=== PATIENT | female | born 1970 | race Caucasian/White ===

== ENCOUNTER 2018-07-21 16:16 | Inpatient (IN) | payer SELFPAY ==
[2018-07-21 16:18] VITALS: BP 152/110; PULSE 111; RESP 18; TEMP 36.9; O2SAT 93; BMI 57.3
--- NOTE | 2018-07-21 16:46 | ED.VISSUMM ---
- ER Visit Summary Date of Service: 07/21/18 Chief Complaint: Questionable dehydration, shortness of breath, leg cramps History of Present Illness: The patient is a 48 F who presents with weakness, shortness of breath, leg cramping and is concerned about dehydration. She states that over the past 3 days she has not eaten well. She has no appetite. She has been drinking Gatorade but has not eaten well. She is concerned about dehydration because she gets short of breath and weak when she ambulates. She has had a mild amount of diarrhea. She denies any abdominal pain. She does have chest pain or shortness of breath with exertion. She has no history of IA in the past. Physical Examination: Vital signs reviewed. HEENT exam unremarkable. Heart is tachycardic and regular rhythm without murmurs. Lungs are clear bilaterally however the patient is slightly tachypneic upon my examination. Abdomen is soft and nontender. Extremities reveal no edema. Neurologic exam normal. Test Results: EKG is normal sinus rhythm with rate of 99. No ST changes. White blood cell count 11.7 BUN 22 creatinine 1.49 troponin 0 0.024. D-dimer 7.43 CAT scan of the chest with contrast reveals a bilateral pulmonary embolism with a thin saddle embolus connecting the 2. Emergency Department Course and Treatment: The patient has no history of DVT or PE. I believe that her only risk factor is when she drove from [place] to [place] when she moved at the end of March. They did stop once in [place] for a rest. At this point the patient will be placed on a heparin drip. She will be admitted to the PCU for further observation. Treatment Plan: [] Disposition: Admit Impression: Bilateral pulmonary embolism This note was generated with [employer] dictation software. It may contain incorrect words, spelling, and punctuation that were not noted in review of the chart prior to signing ED Disposition - Plan for ED Patient: Referrals: NOT,DEFINED [NON-STAFF] -
--- NOTE | 2018-07-21 16:50 | RAD_ITS ---
STUDY: X-RAY CHEST REASON FOR EXAM: Female, 48 years old. Cough and shortness of breath since Tuesday. TECHNIQUE: Single AP portable view of the chest. COMPARISON: None. FINDINGS: The lungs are clear and expanded. Mild elevation of the right diaphragm. Normal size heart. Normal mediastinum and na. Normal visualized pulmonary arteries. Normal visualized aortic arch and descending thoracic aorta. Normal visualized thoracic spine. Normal visualized ribs, clavicles, and shoulders. There is no demonstrated abnormality of the visualized soft tissue structures of the upper abdomen. RAD/Chest 1 View (Portable) IMPRESSION: Mild elevation of right diaphragm. No acute cardiopulmonary findings. Negative for major consolidation, focal atelectasis or a substantial pleural effusion. Electronically Signed: Fang Doe MD at 17:14 EST , Service support ,
[2018-07-21] MEDS: 0.9% Normal Saline 1,000 ML 1000 ML IV (17:08)
[2018-07-21 17:23] LABS: Absolute Lymphocyte Count 2.62 X10^3/ul (0.83-4.51); Absolute Neutrophil Count 7.6 X10^3/uL (2.0-7.7); Basophil# 0.05 X10^3/uL; Basophil% 0.4 % (0-1); Eosinophil# 0.28 X10^3/uL; Eosinophils% 2.4 % (0-5); Hematocrit 37.1 % (37-47); Hemoglobin 12.4 g/dl (12.0-15.0); Lymphocyte # 2.62 X10^3/ul (4.0); Lymphocyte % 22.3 % (19-41); Mean Corp Hgb Conc 33.4 g/gl (32-36); Mean Corpuscular Hgb 30.9 pg (27.0-32.0); Mean Corpuscular Volume 92.5 fL (81-99); Mean Platelet Vol. 10.6 fl (6.2-12.0); Monocyte# 1.14 X10^3/uL; Monocyte% 9.7 % (0-10); Neutrophil # 7.59 X10^3/uL (2.7-7.7); Neutrophil % 64.7 % (47-70); Platelet Count 353 K/mm3 (150-450); Red Blood Count 4.01 M/mm3 (4.2-5.4); White Blood Count 11.7 K/mm3 (4.4-11.0)
[2018-07-21 17:26] LABS: POSITIVE COUNT NO; POSITIVE DIFFERENTIAL NO; POSITIVE MORPHOLOGY NO
[2018-07-21 17:37] LABS: ALB/GLOB Ratio 0.8 RATIO (0.9-2.4); AST(SGOT) 36 U/L (15-37); Alanine Aminotransfer ALT/SGPT 47 U/L (13-56); Albumin, Serum 3.5 g/dL (3.2-5.0); Alkaline Phosphatase 92 U/L (45-117); Anion Gap 11 (5-15); BUN 22 mg/dL (7-18); BUN/Creat Ratio 14.8 RATIO (10-20); Calcium,Total 8.9 mg/dL (8.5-10.1); Chloride 108 mmol/L (98-107); Creatinine, Serum 1.49 mg/dL (0.55-1.02); EST Glomerular Filtration Rate 40 mL/min (>60); Est Glom Filt Rate - Afr Amer 48 mL/min (>60); Estimated Creatinine Clearance 44.41 ml/min; Globulin 4.4 g/dL (2.2-4.2); Glucose 95 mg/dL (74-106); Potassium 3.8 mmol/L (3.5-5.1); Protein, Total 7.9 g/dL (6.4-8.2); Sodium Level 138 mmol/L (136-145)
[2018-07-21 18:03] LABS: D-Dimer Quantitative (DVT/PE) 7.43 FEU/ug/m (0.27-0.49)
--- NOTE | 2018-07-21 18:04 | CT_ITS ---
We are attempting to reach Sarabjit Aguilar MD to discuss findings. An addendum with communication details will be sent when the communication is complete. STUDY: CTA CHEST REASON FOR EXAM: Female, 48 years old. Shortness of breath, weakness and elevated d-dimer RADIATION DOSAGE (If Supplied By Facility): CTDIvol = ( 16.73 ) mGy, DLP = ( 769.43 ) mGycm TECHNIQUE: The examination was performed with the intravenous administration of Isovue 370 100ML IV. Post-processing of the angiographic images was performed, with multiplanar reformation and 3D reconstruction. Individualized dose optimization techniques were used for this CT. COMPARISON: Portable chest of July 21, 2018 FINDINGS: There is a large pulmonary embolus in the distal right pulmonary artery which extends into multiple branches of the right upper lobe, right middle lobe and right lower lobe. This embolus is connected by a thin embolus to a large embolus in the distal left pulmonary artery which extends into multiple branches of the left lower lobe, lingula and left upper lobe. Normal thoracic aorta and visualized great vessels. Normal heart and pericardium. Normal mediastinum. Normal hilar regions. Mild lingular infiltrate. Negative for pleural effusion. Normal chest wall structures. There are degenerative changes of thoracic spine. Multiple large to moderate size laminated gallstones in the gallbladder. CT/CTA Chest W/WO Contrast IMPRESSION: Large pulmonary embolus of the distal right pulmonary artery extending into the right lower lobe artery and multiple branches. Extension into the right middle lobe and right upper lobe branches. Large embolus of the distal left pulmonary embolus extending into upper lobe, lingular and lower lobe branches. There is a slender interconnecting embolus from the right pulmonary artery embolus to the left pulmonary embolus, saddle embolus. Mild lingular infiltrate. Otherwise the lungs are clear without pleural effusion. Normal aorta heart and mediastinum. Incidental cholelithiasis. Electronically Signed: Fang Doe MD at 19:06 EST , Service support ,
--- NOTE | 2018-07-21 18:09 | ED.RN ---
DDIMER 7.[address] LAB. DR POE AWARE
[2018-07-21] MEDS: Heparin Injection (Vial) 5,000 UNIT/ML VIAL 13000 UNIT IV (18:56)
[2018-07-21] MEDS: HEPARIN/D5w 25,000 UNITS 25,000 UNITS/250 ML IV.SOLN. 2000 UNITS IV (19:00)
[2018-07-21 19:02] VITALS: BP 134/75; PULSE 90; RESP 21; O2SAT 99
--- NOTE | 2018-07-21 19:28 | HP.PCM_ITS ---
Problem List (1) Pulmonary embolism Status: Acute Qualifiers: Pulmonary embolism type: saddle Chronicity: acute (2) DARLENE (acute kidney injury) Status: Acute (3) HTN (hypertension) Status: Chronic Qualifiers: Hypertension type: essential hypertension Qualified Code(s): I10 - Essential (primary) hypertension (4) Anxiety and depression Status: Chronic (5) Hypothyroidism Status: Chronic Qualifiers: Hypothyroidism type: unspecified Qualified Code(s): E03.9 - Hypothyroidism, unspecified (6) Morbid obesity Status: Chronic (7) KINGSLEY (obstructive sleep apnea) Status: Chronic History of Present Illness Date of Admission: 07/21/18 Chief Complaint: Dyspnea The patient is a 48 y/o F w/ PMHx: Hypothyroidism, HTN, Morbid Obesity, KINGSLEY non- compliant with CPAP, Anxiety and Depression who presents to the [facility] ED on 07/21/18 with history of recently moving from [place] to [place] at the end of 2017 and since has had initially BL LE discomfort, cramping, mild edema and now over the last several weeks progressively worsening dyspnea, more severe with exertion eventually prompting ED evaluation per her PCP recommendation. She also notes recently decreased appetite over the last 3 days in addition. She denies any notable chest discomfort with this presentation. In the ED work-up included T 98.5, HR 111-->90, BP 152/110-->134/75, RR 18, 93% on RA, CBC w/ WBC 11.7, Hgb 12.4, Plts 353 without shift 7.43, CMP w/ Chl 108, CO2 19, BUN/Cr 22/1.49, trop 0.024, EKG without acute evidence of ischemia, CXR with mild elevation of right diaphragm, no acute cardiopulmonary findings, CTPA with large pulmonary embolus of the distal right pulmonary artery extending into the right lower lobe artery and multiple branches with extension into the right middle lobe and right upper lobe branches as well, large embolus of the distal left pulmonary embolus e xtending to the upper lobe, lingular and lower lobe branches, slender interconnecting embolus from the right pulmonary artery embolus to the left pulmonary embolus, saddle embolus, mild lingular infiltrate otherwise lungs are clear without pleural effusion. In the ED patient administered heparin bolus with drip initiation in addition to NS. Past Medical History Past Medical History (Chronic Problems): Chronic Problems HTN (hypertension) (Chronic) Anxiety and depression (Chronic) Hypothyroidism (Chronic) Morbid obesity (Chronic) KINGSLEY (obstructive sleep apnea) (Chronic) Allergies No Known Allergies Allergy (Verified 07/21/18 16:18) Home Medications: Ambulatory Orders Medication Instructions Recorded Aspirin [Aspirin, Baby] 81 mg PO DAILY@0800 07/21/18 Buspirone HCl 10 mg PO BID 07/21/18 Levothyroxine [Synthroid] 125 mcg PO DAILY 07/21/18 Lisinopril [Zestril] 20 mg PO DAILY 07/21/18 Meloxicam [Mobic] 15 mg PO DAILY 07/21/18 Metoprolol(XL)Succ [Toprol Xl 50 mg PO DAILY 07/21/18 (Beta Bautista)] Oxybutynin Chloride [Oxybutynin 10 mg PO DAILY 07/21/18 Chloride ER] Venlafaxine HCl [Venlafaxine HCl 150 mg PO DAILY 07/21/18 ER] Surgical History: - - Hysterectomy, BLTL. 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 Denies: Chills, Fever, Weight Change HEENT: Denies: Head Aches, Sinus Congestion, Sinus Drainage Cardiovascular: Denies: Chest Pain, Palpitations Respiratory: Reports: Shortness of Breath, Shortness of breath at rest, Shortness of breath upon exertion. Denies: Cough, Sputum production Gastrointestinal: Denies: Abdominal Pain, Nausea, Vomiting Genitourinary: Denies: Dysuria Musculoskeletal: Reports: Leg Pain. Denies: Joint Pain, Joint Tenderness Skin: Denies: Rash, Wounds Neurological: Denies: Numbness, Tingling, Focal weakness Psychiatric: Reports: Anxiety, Depression. Denies: Homicidal Ideations, Suicidal Ideations Hematologic/ Lymphatic: Denies: Easy Bruising, Easy Bleeding VTE Information - Inpt Only VTE Present on Admission: No VTE Mechan Device Prophylaxis: SCD's VTE Pharm Prophylaxis ordered?: Yes Patient Problems: Active and Suspected Problems Pulmonary embolism (Acute) DARLENE (acute kidney injury) (Acute) Subjective: Seated upright in the ED bed, fatigued, notes ongoing dyspnea, moreso with movement. Objective: Physical Examination: General: awake, alert, oriented x 3 and cooperative, seated upright in the ED bed in no apparent distress, notes still dyspnea present. Skin: normal color, turgor, no icterus, cyanosis. HEENT: AT/NC, EOMI, PERRLA, modeately dry MM, no carotid bruits or JVD noted; however, thickened neck makes examination difficult. Lungs: Diminished BL bases, moderate effort, distant breath sounds, no rales, ronchi or wheezing. Heart: Regular rate and rhythm; no gallop, rub audible. Abdomen: soft, morbidly obese, NTTP, ND, normal BS, no HSM; however, habitus makes examination difficult. Extremities: no cyanosis, clubbing, BL LE ankle to distal metz non-pitting edema, NTTP. Neurological: patient awake, alert, oriented x 3; cognitive function intact; pupils equally reactive to light and accomodation; cranial nerves II-XII grossly normal, moving all 4 extremities, no focal deficits, strength severely globally decreased secondary to acute presentation. Psychiatric: affect appears fatigued, no acute evidence of depressive or anxiety feelings. - Physical Exam Vital Signs Temp Pulse Resp BP Pulse Ox 98.5 F 90 21 H 134/75 H 99 07/21/18 16:18 07/21/18 19:02 07/21/18 19:02 07/21/18 19:02 07/21/18 19:02 Oxygen Delivery Method Room Air Weight: 366 lb 3.005 oz Body Mass Index (BMI) 57.3 Laboratory Tests Past 24 Hrs 07/21/18 07/21/18 07/21/18 17:05 17:05 17:05 WBC 11.7 H RBC 4.01 L Hgb 12.4 Hct 37.1 MCV 92.5 MCH 30.9 MCHC 33.4 RDW 13.0 RDW Differential 43.0 Plt Count 353 MPV 10.6 Immature Gran % (Auto) 0.500 Neut % (Auto) 64.7 Lymph % (Auto) 22.3 Gordon % (Auto) 9.7 Eos % (Auto) 2.4 Baso % (Auto) 0.4 Absolute Neuts (auto) 7.6 Absolute Lymphs (auto) 2.62 Total Counted Not Reportable APTT D-Dimer Quant (PE/DVT) 7.43 H* Sodium 138 Potassium 3.8 Chloride 108 H Carbon Dioxide 19.0 L Anion Gap 11 BUN 22 H Creatinine 1.49 H Estim Creat Clear Calc 44.41 Est GFR (MDRD) Af Amer 48 L Est GFR (MDRD) Non-Af 40 L BUN/Creatinine Ratio 14.8 Glucose 95 Calcium 8.9 Total Bilirubin 0.80 AST 36 ALT 47 Alkaline Phosphatase 92 Troponin I 0.024 Total Protein 7.9 Albumin 3.5 Globulin 4.4 H Albumin/Globulin Ratio 0.8 L 07/21/18 17:05 WBC RBC Hgb Hct MCV MCH MCHC RDW RDW Differential Plt Count MPV Immature Gran % (Auto) Neut % (Auto) Lymph % (Auto) Gordon % (Auto) Eos % (Auto) Baso % (Auto) Absolute Neuts (auto) Absolute Lymphs (auto) Total Counted APTT 29.0 D-Dimer Quant (PE/DVT) Sodium Potassium Chloride Carbon Dioxide Anion Gap BUN Creatinine Estim Creat Clear Calc Est GFR (MDRD) Af Amer Est GFR (MDRD) Non-Af BUN/Creatinine Ratio Glucose Calcium Total Bilirubin AST ALT Alkaline Phosphatase Troponin I Total Protein Albumin Globulin Albumin/Globulin Ratio Assessment/Plan All Active Problems Pulmonary embolism (Acute) DARLENE (acute kidney injury) (Acute) The patient is a 48 y/o F w/ PMHx: Hypothyroidism, HTN, Morbid Obesity, KINGSLEY non- compliant with CPAP, Anxiety and Depression who presents to the [facility] ED on 07/21/18 with history of recently moving from [place] to [place] at the end of 2017 and since has had initially BL LE discomfort, cramping, mild edema and now over the last several weeks progressively worsening dyspnea, more severe with exertion eventually prompting ED evaluation per her PCP recommendation. She also notes recently decreased appetite over the last 3 days in addition. (1) Dyspnea, BL LE Edema, discomfort secondary to Large Saddle Pulmonary Embolism w/ suspected DVT following Prolonged [address]: ED work-up included T 98.5, HR 111-->90, BP 152/110-->134/75, RR 18, 93% on RA, CBC w/ WBC 11.7, Hgb 12.4, Plts 353 without shift 7.43, CMP w/ Chl 108, CO2 19, BUN/Cr 22/1.49, trop 0.024, EKG without acute evidence of ischemia, CXR with mild elevation of right diaphragm, no acute cardiopulmonary findings, CTPA with large pulmonary embolus of the distal right pulmonary artery extending into the right lower lobe artery and multiple branches with extension into the right middle lobe and right upper lobe branches as well, large embolus of the distal left pulmonary embolus extending to the upper lobe, lingular and lower lobe branches, slender interconnecting embolus from the right pulmonary artery embolus to the left pulmonary embolus, saddle embolus, mild lingular infiltrate otherwise lungs are clear without pleural effusion. In the ED patient administered heparin bolus with drip initiation in addition to NS. No family history of hypercoaguable state. Patient notes recent long car travel w/ recent move as noted. Will admit to PCU, maintain on cardiac telemetry. Will obtain ECHO, BNP and BL LE DVT US. Will continue therapeutic heparin drip with pending AM insurance oral regimen investigation. Given severity of appearance will request Pulmonary evaluation. (2) ? Acute kidney injury versus CKD Unclear Stage: Suspect DARLENE, secondary to recent poor intake, dehydration. Admission BUN/Cr 22/49, prior baseline creatinine unknown. Will hydrate, hold nephrotoxic medications and repeat chemistry in AM. If no improvement would plan FeNa assessment. (3) Hypertension: Continue home regimen including metoprolol, temporarily hold ACEI, PRN hydralazine. (4) Morbid Obesity: Weight loss and lifestyle changes encouraged, nutrition consulted. (5) Hypothyroidism: Continue home synthroid regimen. (6) Anxiety and Depression: Continue home buspar, venlafaxine regimen. (7) KINGSLEY: Patient is noncompliant with CPAP. (8) GERD: Famotidine. (9) DVT Prophylaxis: SCDs pending DVT US, heparin drip as noted. Code Visit Inpatient E&M: 13545 Init Hosp L3
--- NOTE | 2018-07-21 20:27 | ECHOD_ITS ---
Reason For Study: Emboli Procedure This was a 2D Doppler, Color Flow transthoracic echocardiogram. Exam performed portable in patient room. Left Ventricle Normal LV size. Left ventricular systolic function is normal. The estimated ejection fraction is 55 %. Stage 1 diastolic dysfunction. No regional wall motion abnormalities noted. Right Ventricle Mildly dilated right ventricle. Mild global right ventricular systolic dysfunction. Atria Normal left atrium. The right atrium is mildly enlarged. Mitral Valve Normal mitral valve. Tricuspid Valve Normal tricuspid valve. Mild to moderate (1-2+) tricuspid valve insufficiency. Pulmonary artery systolic pressure is 51 mmHg. Moderate pulmonary hypertension. Aortic Valve Normal aortic valve. Pulmonic Valve Normal pulmonic valve. Great Vessels Normal aortic root. The pulmonary artery is normal size. Normal inferior vena cava. Pericardium/Pleural No pericardial effusion. MMode/2D Measurements & Calculations LVIDd: 4.0 cm IVSd: 1.3 cm LA dimension: 4.0 cm LVIDs: 2.6 cm LVPWd: 0.80 cm RVDd: 5.3 cm FS: 34.3 % LAV(MOD-bp): 48.0 ml LA A4 area: 17.7 cm2 RA A4 area: 24.1 cm2 LAV(MOD-bp) Indexed: 18.4 ml/m2 LAV(MOD-sp2): 47.5 ml LAV(MOD-sp4): 45.7 ml Time Measurements MV dec time: 0.24 sec Doppler Measurements & Calculations MV E max nacho: 67.3 cm/sec Lat Peak E' Nacho: 14.4 cm/sec Med Peak E' Nacho: 9.5 cm/sec MV A max nacho: 92.7 cm/sec E/E' lat: 4.7 E/E' med: 7.1 MV E/A: 0.73 MV V2 max: 115.5 cm/sec MV P1/2t max nacho: 92.1 cm/sec Ao V2 max: 148.5 cm/sec MV max P.3 mmHg MV P1/2t: 57.0 msec Ao max P.8 mmHg MV V2 mean: 63.2 cm/sec MV dec slope: 473.7 cm/sec2 MV mean P.9 mmHg MVA(P1/2t): 3.9 cm2 MV V2 VTI: 25.2 cm LV V1 max: 116.1 cm/sec PA V2 max: 95.3 cm/sec TR max nacho: 345.8 cm/sec LV V1 max P.4 mmHg TR max P.8 mmHg Interpretation Summary Normal LV size. Left ventricular systolic function is normal. The estimated ejection fraction is 55 %. Stage 1 diastolic dysfunction. Pulmonary artery systolic pressure is 51 mmHg. Moderate pulmonary hypertension. Ordering Physician: Lisbeth Briggs Referring Physician: Lisbeth Briggs Performed By: Ever Fonseca RCS
[2018-07-21 20:35] VITALS: BMI 57.1
[2018-07-21 20:38] VITALS: PULSE 87
[2018-07-21 20:41] VITALS: BMI 57.1
[2018-07-21 20:55] VITALS: BP 141/77; PULSE 73; RESP 18; TEMP 36.6; O2SAT 97
[2018-07-21 20:57] LABS: Magnesium 1.3 mg/dL (1.6-2.6)
[2018-07-21 21:16] LABS: BNP,B-Type NATRIURETIC PEPTIDE 203.2 pg/mL (0-100)
[2018-07-21] MEDS: 0.9% Normal Saline 1,000 ML 100 ML IV (22:16)
[2018-07-21] MEDS: Magnesium Sulfate 4gm/100mL 4 GM/100 ML IV.SOLN. IV (22:16)
[2018-07-21] MEDS: Famotidine 20 MG Tablet PO (22:17)
[2018-07-21] MEDS: busPIRone 5 MG Tablet 10 MG PO (22:18)
[2018-07-21 22:59] VITALS: PULSE 83
[2018-07-22] VITALS (12 sets, daily range): BP systolic 110–136; BP diastolic 65–80; PULSE 77–105; RESP 14–18; TEMP 36.4–37.3; O2SAT 94–97
[2018-07-22 01:35] LABS: Partial Thromboplast Time 115.5 Seconds (24.1-36.2)
[2018-07-22] MEDS: Levothyroxine 125 MCG Tablet PO (06:00)
[2018-07-22 06:44] LABS: Hematocrit 35.7 % (37-47); Hemoglobin 11.6 g/dl (12.0-15.0); Mean Corp Hgb Conc 32.5 g/gl (32-36); Mean Corpuscular Hgb 30.6 pg (27.0-32.0); Mean Corpuscular Volume 94.2 fL (81-99); Mean Platelet Vol. 10.4 fl (6.2-12.0); Platelet Count 342 K/mm3 (150-450); RBC Distribution Width CV 13.8 % (11.6-14.6); RBC Distribution Width SD 46.8 fl (35.1-43.9); Red Blood Count 3.79 M/mm3 (4.2-5.4); White Blood Count 11.7 K/mm3 (4.4-11.0)
[2018-07-22 06:52] LABS: Scan Indicated on CBC? Y/N NO
[2018-07-22 06:54] LABS: Anion Gap 11 (5-15); BUN 20 mg/dL (7-18); BUN/Creat Ratio 14.5 RATIO (10-20); Calcium,Total 8.7 mg/dL (8.5-10.1); Chloride 111 mmol/L (98-107); Creatinine, Serum 1.38 mg/dL (0.55-1.02); EST Glomerular Filtration Rate 43 mL/min (>60); Est Glom Filt Rate - Afr Amer 52 mL/min (>60); Estimated Creatinine Clearance 47.95 ml/min; Glucose 109 mg/dL (74-106); Sodium Level 141 mmol/L (136-145)
--- NOTE | 2018-07-22 07:11 | PCM.CONS.GEN ---
Reason for Consult Date of Consultation: 07/22/18 Reason for Consultation: Saddle PE, large History of Present Illness: The patient is a 48-year-old female, with a history as outlined below, who presented to the emergency department on July 21 with generalized malaise, weakness and shortness of breath. The patient states that she has had diminished appetite over the days leading up to her hospitalization. She denied the presence of abdominal pain, nausea or vomiting. She stated that her dyspnea occurred primarily with exertion. The patient lives a rather sedentary lifestyle with very little physical activity. She did relocate to this area from [place] in March. She has no personal or family history of venous thromboembolic disease. The patient is not a smoker and does not currently utilize oral contraceptives. On presentation to the emergency department, the patient was noted to be afebrile, tachycardic and hemodynamically stable. Laboratory evaluation revealed a mildly elevated white blood cell count to 12,000. D-dimer was elevated to 7.43. Chemistry profile was notable for a bicarbonate of 19 and an elevated creatinine of 1.49. Magnesium was low at 1.3. BNP was elevated to 203. Troponin was mildly elevated to 0.024. Chest CTA revealed a large pulmonary embolism in the distal right pulmonary artery which extended into multiple branches of the right upper lobe, right middle lobe and right lower lobe. Additional emboli were also noted throughout the left pulmonary vasculature as well. Additional note was made of multiple large to moderate sized gallstones in the gallbladder. The patient was subsequently started on a heparin drip and admitted to the progressive care unit for ongoing management. Past Medical History Past Medical History (Chronic Problems): Chronic Problems HTN (hypertension) (Chronic) Anxiety and depression (Chronic) Hypothyroidism (Chronic) Morbid obesity (Chronic) KINGSLEY (obstructive sleep apnea) (Chronic) Allergies No Known Allergies Allergy (Verified 07/21/18 16:18) Home Medications: Ambulatory Orders Medication Instructions Recorded Aspirin [Aspirin, Baby] 81 mg PO DAILY@0800 07/21/18 Buspirone HCl 10 mg PO BID 07/21/18 Levothyroxine [Synthroid] 125 mcg PO DAILY 07/21/18 Lisinopril [Zestril] 20 mg PO DAILY 07/21/18 Metoprolol(XL)Succ [Toprol Xl 50 mg PO DAILY 07/21/18 (Beta Bautista)] Oxybutynin Chloride [Oxybutynin 10 mg PO DAILY 07/21/18 Chloride ER] Venlafaxine HCl [Venlafaxine HCl 150 mg PO DAILY 07/21/18 ER] Apixaban [Eliquis] 5 mg PO UD #30 tab.ds.pk 07/23/18 Surgical History: - - Hysterectomy, BLTL. 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 Denies: Chills, Fever, Night Sweats Eyes: Denies: Blurred vision, Double vision HEENT: Denies: Head Aches, Sinus Congestion, Sinus Drainage Cardiovascular: Denies: Chest Pain, Palpitations Respiratory: Reports: Shortness of Breath, Shortness of breath upon exertion. Denies: Cough Gastrointestinal: Denies: Abdominal Pain, Nausea, Vomiting Genitourinary: Denies: Dysuria Musculoskeletal: Denies: Joint Pain, Joint Tenderness Skin: Denies: Rash, Wounds Neurological: Denies: Numbness, Tingling, Focal weakness Psychiatric: Denies: Anxiety, Depression, Homicidal Ideations, Suicidal Ideations Hematologic/ Lymphatic: Denies: Easy Bruising, Easy Bleeding Patient Problems: Active and Suspected Problems Pulmonary embolism (Acute) DARLENE (acute kidney injury) (Acute) Objective: The patient's most recent lab work, culture data and imaging studies have all been personally reviewed. - Physical Exam General: Alert, Oriented x3, Cooperative, No apparent distress, - - Morbidly obese. HEENT: Atraumatic, PERRLA, Normocephalic Oral: No Gingival or Mucosal Lesions/ Ulcerations Neck: Supple, No Nodes, Trachea Midline Lungs: No rhonchi, No wheeze, No rales, Diminished Cardiovascular: Regular rate, Regular Rhythm, Normal S1, Normal S2, No murmurs, - - Distant heart tones secondary to body habitus Abdomen: Bowel Sounds Present, Soft, Non Tender, Obese Extremities: No clubbing, No cyanosis, Edema Skin: No breakdown Musculoskeletal: No Tenderness to Palpation of Joints or Extremities, No Muscle Wasting Lymphatic: No Cervical, Supraclavicular, or Inguinal Adenopathy Neurological: Cranial nerves II-XII grossly intact, Neuro grossly intact Psych/Mental Status: Alert and oriented to time, place, person, mood and affect Vital Signs Temp Pulse Resp BP Pulse Ox 36.7 C 78 18 110/65 95 07/22/18 02:55 07/22/18 02:59 07/22/18 02:55 07/22/18 02:55 07/22/18 02:55 Oxygen Delivery Method Room Air Weight: 364 lb 13.84 oz Body Mass Index (BMI) 57.1 Intake and Output for Last 24 Hours 07/20/18 07/21/18 07/22/18 23:59 23:59 23:59 Intake Total 392.6 / 392.6 605.6 / 605.6 Balance 392.6 / 392.6 605.6 / 605.6 Laboratory Tests Past 24 Hrs 07/21/18 07/21/18 07/21/18 17:05 17:05 17:05 WBC 11.7 H RBC 4.01 L Hgb 12.4 Hct 37.1 MCV 92.5 MCH 30.9 MCHC 33.4 RDW 13.0 RDW Differential 43.0 Plt Count 353 MPV 10.6 Immature Gran % (Auto) 0.500 Neut % (Auto) 64.7 Lymph % (Auto) 22.3 [place] % (Auto) 9.7 Eos % (Auto) 2.4 Baso % (Auto) 0.4 Absolute Neuts (auto) 7.6 Absolute Lymphs (auto) 2.62 Total Counted Not Reportable APTT D-Dimer Quant (PE/DVT) 7.43 H* Sodium 138 Potassium 3.8 Chloride 108 H Carbon Dioxide 19.0 L Anion Gap 11 BUN 22 H Creatinine 1.49 H Estim Creat Clear Calc 44.41 Est GFR (MDRD) Af Amer 48 L Est GFR (MDRD) Non-Af 40 L BUN/Creatinine Ratio 14.8 Glucose 95 Calcium 8.9 Magnesium Total Bilirubin 0.80 AST 36 ALT 47 Alkaline Phosphatase 92 Troponin I 0.024 B-Natriuretic Peptide Total Protein 7.9 Albumin 3.5 Globulin 4.4 H Albumin/Globulin Ratio 0.8 L 07/21/18 07/21/18 07/21/18 17:05 17:05 17:05 WBC RBC Hgb Hct MCV MCH MCHC RDW RDW Differential Plt Count MPV Immature Gran % (Auto) Neut % (Auto) Lymph % (Auto) [place] % (Auto) Eos % (Auto) Baso % (Auto) Absolute Neuts (auto) Absolute Lymphs (auto) Total Counted APTT 29.0 D-Dimer Quant (PE/DVT) Sodium Potassium Chloride Carbon Dioxide Anion Gap BUN Creatinine Estim Creat Clear Calc Est GFR (MDRD) Af Amer Est GFR (MDRD) Non-Af BUN/Creatinine Ratio Glucose Calcium Magnesium 1.3 L Total Bilirubin AST ALT Alkaline Phosphatase Troponin I B-Natriuretic Peptide 203.2 H Total Protein Albumin Globulin Albumin/Globulin Ratio 07/22/18 07/22/18 07/22/18 01:00 05:54 05:54 WBC 11.7 H RBC 3.79 L Hgb 11.6 L Hct 35.7 L MCV 94.2 MCH 30.6 MCHC 32.5 RDW 13.8 RDW Differential 46.8 H Plt Count 342 MPV 10.4 Immature Gran % (Auto) Neut % (Auto) Lymph % (Auto) [place] % (Auto) Eos % (Auto) Baso % (Auto) Absolute Neuts (auto) Absolute Lymphs (auto) Total Counted APTT 115.5 H* D-Dimer Quant (PE/DVT) Sodium 141 Potassium 4.0 Chloride 111 H Carbon Dioxide 19.0 L Anion Gap 11 BUN 20 H Creatinine 1.38 H Estim Creat Clear Calc 47.95 Est GFR (MDRD) Af Amer 52 L Est GFR (MDRD) Non-Af 43 L BUN/Creatinine Ratio 14.5 Glucose 109 H Calcium 8.7 Magnesium Total Bilirubin AST ALT Alkaline Phosphatase Troponin I B-Natriuretic Peptide Total Protein Albumin Globulin Albumin/Globulin Ratio Clinical Impression(s) from Imaging Studies Chest X-Ray 07/21/18 16:50 IMPRESSION: Mild elevation of right diaphragm. No acute cardiopulmonary findings. Negative for major consolidation, focal atelectasis or a substantial pleural effusion. Electronically Signed: Fang Doe MD at 17:14 EST , Service support , Chest CTA 07/21/18 18:04 IMPRESSION: Large pulmonary embolus of the distal right pulmonary artery extending into the right lower lobe artery and multiple branches. Extension into the right middle lobe and right upper lobe branches. Large embolus of the distal left pulmonary embolus extending into upper lobe, lingular and lower lobe branches. There is a slender interconnecting embolus from the right pulmonary artery embolus to the left pulmonary embolus, saddle embolus. Mild lingular infiltrate. Otherwise the lungs are clear without pleural effusion. Normal aorta heart and mediastinum. Incidental cholelithiasis. Electronically Signed: Fang Doe MD at 19:06 EST , Service support , ADDENDUM: 07/21/181926 IMPRESSION: Large pulmonary embolus of the distal right pulmonary artery extending into the right lower lobe artery and multiple branches. Extension into the right middle lobe and right upper lobe branches. Large embolus of the distal left pulmonary embolus extending into upper lobe, lingular and lower lobe branches. There is a slender interconnecting embolus from the right pulmonary artery embolus to the left pulmonary embolus, saddle embolus. Mild lingular infiltrate. Otherwise the lungs are clear without pleural effusion. Normal aorta heart and mediastinum. Incidental cholelithiasis. N.B. : The above information has been verbally conveyed by Fang Doe MD to Sarabjit Aguilar MD, on 07/21/2018 19:20:47 (ET). Electronically Signed: Fang Doe MD at 19:06 EST , Service support , Assessment/Plan All Active Problems Pulmonary embolism (Acute) DARLENE (acute kidney injury) (Acute) RECOMMENDATIONS: 1. Continue heparin drip with plans to eventually transition to Eliquis or Xarelto. 2. Echocardiogram is pending. 3. No indication for lower extremity Doppler studies, as this would not change our management. 4. Perform walking oximetry study prior to consideration for discharge from the hospital. 5. The patient should follow-up in the pulmonary medicine clinic within 2 weeks of her discharge from the hospital. IMPRESSIONS: 1. Shortness of breath secondary to submassive pulmonary embolism The patient was identified as having extensive bilateral pulmonary emboli but maintained hemodynamic stability. This would be consistent with submassive pulmonary embolism, especially in light of the patient's mildly elevated BNP and troponin. Agree with obtaining an echocardiogram at this time. Continue heparin drip with plans to eventually transition the patient to either Xarelto or Eliquis. While the exact precipitating/provoking factor is a bit unclear, I do suspect that the patient's sedentary lifestyle was likely a contributor and factor. I would plan to treat the patient for at least 3 months, with potential extension to lifelong if she does not make lifestyle changes. Perform walking oximetry study prior to consideration for discharge from the hospital. The patient should follow-up in the pulmonary medicine clinic within 2 weeks of her discharge from the hospital. 2. Acute kidney injury Likely prerenal in etiology due to poor p.o. intake. The patient's creatinine is slowly improving with volume expansion. 3. Hypothyroidism/hypertension/depression/obstructive sleep apnea/morbid obesity Complicates care, management, recovery and prognosis. Continue home medications as indicated. Recommend outpatient pulmonary follow-up to address her underlying obstructive sleep apnea. This note was generated with [employer] dictation software. It may contain incorrect words, spelling, and punctuation that were not noted in checking the note before signing. Code Visit Inpatient E&M: 78280 Init Hosp L3
--- NOTE | 2018-07-22 07:17 | CON.PCM_ITS ---
Reason for Consult Date of Consultation: 07/22/18 Reason for Consultation: Saddle PE, large History of Present Illness: The patient is a 48-year-old female, with a history as outlined below, who presented to the emergency department on July 21 with generalized malaise, weakness and shortness of breath. The patient states that she has had diminished appetite over the days leading up to her hospitalization. She denied the presence of abdominal pain, nausea or vomiting. She stated that her dyspnea occurred primarily with exertion. The patient lives a rather sedentary lifestyle with very little physical activity. She did relocate to this area from [place] in March. She has no personal or family history of venous thromboembolic disease. The patient is not a smoker and does not currently utilize oral contraceptives. On presentation to the emergency department, the patient was noted to be afebrile, tachycardic and hemodynamically stable. Laboratory evaluation revealed a mildly elevated white blood cell count to 12,000. D-dimer was elevated to 7.43. Chemistry profile was notable for a bicarbonate of 19 and an elevated creatinine of 1.49. Magnesium was low at 1.3. BNP was elevated to 203. Troponin was mildly elevated to 0.024. Chest CTA revealed a large pulmon aydin embolism in the distal right pulmonary artery which extended into multiple branches of the right upper lobe, right middle lobe and right lower lobe. Additional emboli were also noted throughout the left pulmonary vasculature as well. Additional note was made of multiple large to moderate sized gallstones in the gallbladder. The patient was subsequently started on a heparin drip and admitted to the progressive care unit for ongoing management. Past Medical History Past Medical History (Chronic Problems): Chronic Problems HTN (hypertension) (Chronic) Anxiety and depression (Chronic) Hypothyroidism (Chronic) Morbid obesity (Chronic) KINGSLEY (obstructive sleep apnea) (Chronic) Allergies No Known Allergies Allergy (Verified 07/21/18 16:18) Home Medications: Ambulatory Orders Medication Instructions Recorded Aspirin [Aspirin, Baby] 81 mg PO DAILY@0800 07/21/18 Buspirone HCl 10 mg PO BID 07/21/18 Levothyroxine [Synthroid] 125 mcg PO DAILY 07/21/18 Lisinopril [Zestril] 20 mg PO DAILY 07/21/18 Metoprolol(XL)Succ [Toprol Xl 50 mg PO DAILY 07/21/18 (Beta Bautista)] Oxybutynin Chloride [Oxybutynin 10 mg PO DAILY 07/21/18 Chloride ER] Venlafaxine HCl [Venlafaxine HCl 150 mg PO DAILY 07/21/18 ER] Apixaban [Eliquis] 5 mg PO UD #30 tab.ds.pk 07/23/18 Surgical History: - - Hysterectomy, BLTL. 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 Denies: Chills, Fever, Night Sweats Eyes: Denies: Blurred vision, Double vision HEENT: Denies: Head Aches, Sinus Congestion, Sinus Drainage Cardiovascular: Denies: Chest Pain, Palpitations Respiratory: Reports: Shortness of Breath, Shortness of breath upon exertion. Denies: Cough Gastrointestinal: Denies: Abdominal Pain, Nausea, Vomiting Genitourinary: Denies: Dysuria Musculoskeletal: Denies: Joint Pain, Joint Tenderness Skin: Denies: Rash, Wounds Neurological: Denies: Numbness, Tingling, Focal weakness Psychiatric: Denies: Anxiety, Depression, Homicidal Ideations, Suicidal Ideations Hematologic/ Lymphatic: Denies: Easy Bruising, Easy Bleeding Patient Problems: Active and Suspected Problems Pulmonary embolism (Acute) DARLENE (acute kidney injury) (Acute) Objective: The patient's most recent lab work, culture data and imaging studies have all been personally reviewed. - Physical Exam General: Alert, Oriented x3, Cooperative, No apparent distress, - - Morbidly obese. HEENT: Atraumatic, PERRLA, Normocephalic Oral: No Gingival or Mucosal Lesions/ Ulcerations Neck: Supple, No Nodes, Trachea Midline Lungs: No rhonchi, No wheeze, No rales, Diminished Cardiovascular: Regular rate, Regular Rhythm, Normal S1, Normal S2, No murmurs, - - Distant heart tones secondary to body habitus Abdomen: Bowel Sounds Present, Soft, Non Tender, Obese Extremities: No clubbing, No cyanosis, Edema Skin: No breakdown Musculoskeletal: No Tenderness to Palpation of Joints or Extremities, No Muscle Wasting Lymphatic: No Cervical, Supraclavicular, or Inguinal Adenopathy Neurological: Cranial nerves II-XII grossly intact, Neuro grossly intact Psych/Mental Status: Alert and oriented to time, place, person, mood and affect Vital Signs Temp Pulse Resp BP Pulse Ox 36.7 C 78 18 110/65 95 07/22/18 02:55 07/22/18 02:59 07/22/18 02:55 07/22/18 02:55 07/22/18 02:55 Oxygen Delivery Method Room Air Weight: 364 lb 13.84 oz Body Mass Index (BMI) 57.1 Intake and Output for Last 24 Hours 07/20/18 07/21/18 07/22/18 23:59 23:59 23:59 Intake Total 392.6 / 392.6 605.6 / 605.6 Balance 392.6 / 392.6 605.6 / 605.6 Laboratory Tests Past 24 Hrs 07/21/18 07/21/18 07/21/18 17:05 17:05 17:05 WBC 11.7 H RBC 4.01 L Hgb 12.4 Hct 37.1 MCV 92.5 MCH 30.9 MCHC 33.4 RDW 13.0 RDW Differential 43.0 Plt Count 353 MPV 10.6 Immature Gran % (Auto) 0.500 Neut % (Auto) 64.7 Lymph % (Auto) 22.3 [place] % (Auto) 9.7 Eos % (Auto) 2.4 Baso % (Auto) 0.4 Absolute Neuts (auto) 7.6 Absolute Lymphs (auto) 2.62 Total Counted Not Reportable APTT D-Dimer Quant (PE/DVT) 7.43 H* Sodium 138 Potassium 3.8 Chloride 108 H Carbon Dioxide 19.0 L Anion Gap 11 BUN 22 H Creatinine 1.49 H Estim Creat Clear Calc 44.41 Est GFR (MDRD) Af Amer 48 L Est GFR (MDRD) Non-Af 40 L BUN/Creatinine Ratio 14.8 Glucose 95 Calcium 8.9 Magnesium Total Bilirubin 0.80 AST 36 ALT 47 Alkaline Phosphatase 92 Troponin I 0.024 B-Natriuretic Peptide Total Protein 7.9 Albumin 3.5 Globulin 4.4 H Albumin/Globulin Ratio 0.8 L 07/21/18 07/21/18 07/21/18 17:05 17:05 17:05 WBC RBC Hgb Hct MCV MCH MCHC RDW RDW Differential Plt Count MPV Immature Gran % (Auto) Neut % (Auto) Lymph % (Auto) [place] % (Auto) Eos % (Auto) Baso % (Auto) Absolute Neuts (auto) Absolute Lymphs (auto) Total Counted APTT 29.0 D-Dimer Quant (PE/DVT) Sodium Potassium Chloride Carbon Dioxide Anion Gap BUN Creatinine Estim Creat Clear Calc Est GFR (MDRD) Af Amer Est GFR (MDRD) Non-Af BUN/Creatinine Ratio Glucose Calcium Magnesium 1.3 L Total Bilirubin AST ALT Alkaline Phosphatase Troponin I B-Natriuretic Peptide 203.2 H Total Protein Albumin Globulin Albumin/Globulin Ratio 07/22/18 07/22/18 07/22/18 01:00 05:54 05:54 WBC 11.7 H RBC 3.79 L Hgb 11.6 L Hct 35.7 L MCV 94.2 MCH 30.6 MCHC 32.5 RDW 13.8 RDW Differential 46.8 H Plt Count 342 MPV 10.4 Immature Gran % (Auto) Neut % (Auto) Lymph % (Auto) [place] % (Auto) Eos % (Auto) Baso % (Auto) Absolute Neuts (auto) Absolute Lymphs (auto) Total Counted APTT 115.5 H* D-Dimer Quant (PE/DVT) Sodium 141 Potassium 4.0 Chloride 111 H Carbon Dioxide 19.0 L Anion Gap 11 BUN 20 H Creatinine 1.38 H Estim Creat Clear Calc 47.95 Est GFR (MDRD) Af Amer 52 L Est GFR (MDRD) Non-Af 43 L BUN/Creatinine Ratio 14.5 Glucose 109 H Calcium 8.7 Magnesium Total Bilirubin AST ALT Alkaline Phosphatase Troponin I B-Natriuretic Peptide Total Protein Albumin Globulin Albumin/Globulin Ratio Clinical Impression(s) from Imaging Studies Chest X-Ray 07/21/18 16:50 IMPRESSION: Mild elevation of right diaphragm. No acute cardiopulmonary findings. Negative for major consolidation, focal atelectasis or a substantial pleural effusion. Electronically Signed: Fang Doe MD at 17:14 EST , Service support , Chest CTA 07/21/18 18:04 IMPRESSION: Large pulmonary embolus of the distal right pulmonary artery extending into the right lower lobe artery and multiple branches. Extension into the right middle lobe and right upper lobe branches. Large embolus of the distal left pulmonary embolus extending into upper lobe, lingular and lower lobe branches. There is a slender interconnecting embolus from the right pulmonary artery embolus to the left pulmonary embolus, saddle embolus. Mild lingular infiltrate. Otherwise the lungs are clear without pleural effusion. Normal aorta heart and mediastinum. Incidental cholelithiasis. Electronically Signed: Fang Doe MD at 19:06 EST , Service support , ADDENDUM: 07/21/181926 IMPRESSION: Large pulmonary embolus of the distal right pulmonary artery extending into the right lower lobe artery and multiple branches. Extension into the right middle lobe and right upper lobe branches. Large embolus of the distal left pulmonary embolus extending into upper lobe, lingular and lower lobe branches. There is a slender interconnecting embolus from the right pulmonary artery embolus to the left pulmonary embolus, saddle embolus. Mild lingular infiltrate. Otherwise the lungs are clear without pleural effusion. Normal aorta heart and mediastinum. Incidental cholelithiasis. N.B. : The above information has been verbally conveyed by Fang Doe MD to Sarabjit Aguilar MD, on 07/21/2018 19:20:47 (ET). Electronically Signed: Fang Doe MD at 19:06 EST , Service support , Assessment/Plan All Active Problems Pulmonary embolism (Acute) DARLENE (acute kidney injury) (Acute) RECOMMENDATIONS: 1. Continue heparin drip with plans to eventually transition to Eliquis or Xarelto. 2. Echocardiogram is pending. 3. No indication for lower extremity Doppler studies, as this would not change our management. 4. Perform walking oximetry study prior to consideration for discharge from the hospital. 5. The patient should follow-up in the pulmonary medicine clinic within 2 weeks of her discharge from the hospital. IMPRESSIONS: 1. Shortness of breath secondary to submassive pulmonary embolism The patient was identified as having extensive bilateral pulmonary emboli but maintained hemodynamic stability. This would be consistent with submassive pulmonary embolism, especially in light of the patient's mildly elevated BNP and troponin. Agree with obtaining an echocardiogram at this time. Continue heparin drip with plans to eventually transition the patient to either Xarelto or Eliquis. While the exact precipitating/provoking factor is a bit unclear, I do suspect that the patient's sedentary lifestyle was likely a contributor and factor. I would plan to treat the patient for at least 3 months, with potential extension to lifelong if she does not make lifestyle changes. Perform walking oximetry study prior to consideration for discharge from the hospital. The patient should follow-up in the pulmonary medicine clinic within 2 weeks of her discharge from the hospital. 2. Acute kidney injury Likely prerenal in etiology due to poor p.o. intake. The patient's creatinine is slowly improving with volume expansion. 3. Hypothyroidism/hypertension/depression/obstructive sleep apnea/morbid obesity Complicates care, management, recovery and prognosis. Continue home medications as indicated. Recommend outpatient pulmonary follow-up to address her underlying obstructive sleep apnea. This note was generated with [employer] dictation software. It may contain incorrect words, spelling, and punctuation that were not noted in checking the note before signing. Code Visit Inpatient E&M: 35561 Init Hosp L3
[2018-07-22 08:30] LABS: Partial Thromboplast Time 43.3 Seconds (24.1-36.2)
[2018-07-22] MEDS: Heparin Injection (Vial) 5,000 UNIT/ML VIAL IV (08:46)
[2018-07-22] MEDS: Aspirin 81 MG TAB.CHEW PO (08:47)
[2018-07-22] MEDS: Venlafaxine XR 150 MG Capsule PO (08:47)
[2018-07-22] MEDS: Tolterodine Tartrate 2 MG CAP.SA PO (08:47)
[2018-07-22] MEDS: busPIRone 5 MG Tablet 10 MG PO ×2 (08:47→21:08)
[2018-07-22] MEDS: Famotidine 20 MG Tablet PO ×2 (08:48→21:09)
[2018-07-22] MEDS: Metoprolol(XL)Succ 50 MG Tablet PO (08:48)
[2018-07-22] MEDS: HEPARIN/D5w 25,000 UNITS 25,000 UNITS/250 ML IV.SOLN. 20 UNITS IV (08:55)
--- NOTE | 2018-07-22 10:51 | CASEMGMT ---
Social Work Referral from Dr. Blue for prescription assistance for Eliquis. This social work manager meeting with patient in room. Patient noted to be self pay. Patient reporting to live at home with spouse and plans to return to home with spouse. Patient reports that patient spouse to have insurance that will cover patient beginning on 08/05/18 through [employer]. Patient declining a need to complete a Medicaid application. This social work manager providing patient with a 30-day trail card for Eliquis and educated patient on how to active card. Patient reporting to have positive support within the home and to have no concerns with returning to home. Support given. Cory Deng MSW, TERRY
--- NOTE | 2018-07-22 11:44 | VDLE_ITS ---
Reason For Study: PE RIGHT LEFT GSV is normal. GSV is normal. CFV is compressible, spontaneous, phasic, CFV is compressible, spontaneous, phasic, competent and demonstrates normal competent, and demonstrates normal augmentation. augmentation. FV is compressible, spontaneous, phasic, FV is compressible, spontaneous, phasic, competent and demonstrates normal competent and demonstrates normal augmentation. augmentation. POP V is compressible, spontaneous, phasic, POP V is compressible, spontaneous, phasic, competent and demonstrates normal competent and demonstrates normal augmentation. augmentation. T/P Trunk is compressible. T/P Trunk is compressible. PTV is compressible. PTV is compressible. RT PerV is compressible. LT PerV is compressible. Procedure Exam performed portable in patient room. A preliminary report was called and/or faxed to [facility]. Interpretation Summary No evidence for acute deep venous thrombosis bilateral lower extremities with patent and compressible bilateral great saphenous veins. Ordering Physician: Bernie Blue Referring Physician: Lisbeth Briggs Performed By: Phuong Nelson RVT
--- NOTE | 2018-07-22 11:46 | PCM.PN.HOSP ---
Patient Problems: Active and Suspected Problems Pulmonary embolism (Acute) DARLENE (acute kidney injury) (Acute) Subjective: Patient was admitted with a complaint of worsening shortness of breath more severe with exertion and so came into the ED. She was found to have bilateral pulmonary embolus with a saddle embolus. She has been admitted to be managed for acute PE. Patient's only risk factor seems to be his sedentary lifestyle and morbid obesity. Of note, she did have a long drive from [place] to we will start in March 2018. However this was about 4 months ago and so is less likely that this was a precipitating factor. Patient seen and examined this morning. She feels well and has no complaints. Shortness of breath has resolved. She denies any chest pain, palpitations, dizziness, abdominal pain, diarrhea vomiting. Review of systems otherwise negative. Of note, she is never had a clot before and has no known family history of any previous PE or DVT or any hypercoagulable disorder. She is currently on heparin drip. Pulmonology on board. Vitals/I&O's: Vital Signs Temp Pulse Resp BP Pulse Ox 98.1 F 85 14 136/80 H 97 07/22/18 08:56 07/22/18 08:56 07/22/18 08:56 07/22/18 08:56 07/22/18 08:56 Oxygen Delivery Method Room Air Weight: 364 lb 13.84 oz Body Mass Index (BMI) 57.1 Intake and Output for Last 24 Hours 07/20/18 07/21/18 07/22/18 23:59 23:59 23:59 Intake Total 392.6 / 392.6 605.6 / 605.6 Balance 392.6 / 392.6 605.6 / 605.6 General: Alert, Oriented x3, Cooperative, No apparent distress, - - super morbid obesity HEENT: Atraumatic, PERRLA, EOMI, Normocephalic Oral: Moist Mucosa Neck: Supple, No JVD, Negative Carotid Bruits, Negative Hepatojugular Reflux, No Nodes Lungs: Clear to auscultation, Normal air movement, No rhonchi, No wheeze, No rales Cardiovascular: Regular rate, Regular Rhythm, Normal S1, Normal S2, No murmurs Abdomen: Bowel Sounds Present, Soft, Non Tender, Non-Distended, No Hepato-splenomegaly Extremities: No clubbing, No cyanosis, No edema, Capillary Refill Less than 3 Seconds Skin: No rashes, No breakdown Musculoskeletal: No Tenderness to Palpation of Joints or Extremities Lymphatic: No Cervical, Supraclavicular, or Inguinal Adenopathy Neurological: Cranial nerves II-XII grossly intact, Neuro grossly intact, Motor Exam 5/5 strength throughout Psych/Mental Status: Normal Affect, Appropriate, Alert and oriented to time, place, person, mood and affect Laboratory Results 07/21/18 17:05: WBC 11.7 H, RBC 4.01 L, Hgb 12.4, Hct 37.1, MCV 92.5, MCH 30.9, MCHC 33.4, RDW 13.0, RDW Differential 43.0, Plt Count 353, MPV 10.6, Immature Gran % (Auto) 0.500, Neut % (Auto) 64.7, Lymph % (Auto) 22.3, [place] % (Auto) 9.7, Eos % (Auto) 2.4, Baso % (Auto) 0.4, Absolute Neuts (auto) 7.6, Absolute Lymphs (auto) 2.62, Total Counted Not Reportable 07/21/18 17:05: Sodium 138, Potassium 3.8, Chloride 108 H, Carbon Dioxide 19.0 L, Anion Gap 11, BUN 22 H, Creatinine 1.49 H, Estim Creat Clear Calc 44.41, Est GFR (MDRD) Af Amer 48 L, Est GFR (MDRD) Non-Af 40 L, BUN/Creatinine Ratio 14.8, Glucose 95, Calcium 8.9, Total Bilirubin 0.80, AST 36, ALT 47, Alkaline Phosphatase 92, Troponin I 0.024, Total Protein 7.9, Albumin 3.5, Globulin 4.4 H, Albumin/Globulin Ratio 0.8 L 07/21/18 17:05: D-Dimer Quant (PE/DVT) 7.43 H* 07/21/18 17:05: APTT 29.0 07/21/18 17:05: Magnesium 1.3 L 07/21/18 17:05: B-Natriuretic Peptide 203.2 H 07/22/18 01:00: APTT 115.5 H* 07/22/18 05:54: WBC 11.7 H, RBC 3.79 L, Hgb 11.6 L, Hct 35.7 L, MCV 94.2, MCH 30.6, MCHC 32.5, RDW 13.8, RDW Differential 46.8 H, Plt Count 342, MPV 10.4 07/22/18 05:54: Sodium 141, Potassium 4.0, Chloride 111 H, Carbon Dioxide 19.0 L, Anion Gap 11, BUN 20 H, Creatinine 1.38 H, Estim Creat Clear Calc 47.95, Est GFR (MDRD) Af Amer 52 L, Est GFR (MDRD) Non-Af 43 L, BUN/Creatinine Ratio 14.5, Glucose 109 H, Calcium 8.7 07/22/18 08:15: APTT 43.3 H Diagnostic Data Chest X-Ray 07/21/18 16:50 IMPRESSION: Mild elevation of right diaphragm. No acute cardiopulmonary findings. Negative for major consolidation, focal atelectasis or a substantial pleural effusion. Electronically Signed: Fang Doe MD at 17:14 EST , Service support , Chest CTA 07/21/18 18:04 IMPRESSION: Large pulmonary embolus of the distal right pulmonary artery extending into the right lower lobe artery and multiple branches. Extension into the right middle lobe and right upper lobe branches. Large embolus of the distal left pulmonary embolus extending into upper lobe, lingular and lower lobe branches. There is a slender interconnecting embolus from the right pulmonary artery embolus to the left pulmonary embolus, saddle embolus. Mild lingular infiltrate. Otherwise the lungs are clear without pleural effusion. Normal aorta heart and mediastinum. Incidental cholelithiasis. Electronically Signed: Fang Doe MD at 19:06 EST , Service support , ADDENDUM: 07/21/181926 IMPRESSION: Large pulmonary embolus of the distal right pulmonary artery extending into the right lower lobe artery and multiple branches. Extension into the right middle lobe and right upper lobe branches. Large embolus of the distal left pulmonary embolus extending into upper lobe, lingular and lower lobe branches. There is a slender interconnecting embolus from the right pulmonary artery embolus to the left pulmonary embolus, saddle embolus. Mild lingular infiltrate. Otherwise the lungs are clear without pleural effusion. Normal aorta heart and mediastinum. Incidental cholelithiasis. N.B. : The above information has been verbally conveyed by Fang Doe MD to Sarabjit Aguilar MD, on 07/21/2018 19:20:47 (ET). Electronically Signed: Fang Doe MD at 19:06 EST , Service support , Current Medications Acetaminophen (Tylenol) 650 mg PO Q6H PRN PRN PRN Reason: Non-cardiac pain (mod-severe) Hydrocodone Bitart/Acetaminophen ([place] 5mg-325mg) 1 - 2 tablet PO Q6H PRN PRN PRN Reason: Moderate-severe pain Al Hydroxide/Mg Hydroxide (Mylanta Ii) 30 ml PO Q6H PRN PRN PRN Reason: Gastric burning Aspirin (Aspirin, Baby) 81 mg PO DAILY@0800 [facility] Last Admin: 07/22/18 08:47 Dose: 81 mg Buspirone HCl (Buspar) 10 mg PO BID [facility] Last Admin: 07/22/18 08:47 Dose: 10 mg Famotidine (Pepcid) 20 mg PO BID [facility] Last Admin: 07/22/18 08:48 Dose: 20 mg Heparin Sodium (Porcine) (Heparin Na) 0 unit IV UD PRN; Protocol Last Admin: 07/22/18 08:46 Dose: 1,000 unit Hydralazine HCl (Apresoline Iv) 10 mg IV Q4H PRN PRN PRN Reason: SBP > 160 Heparin Sodium/Dextrose () 25,000 units in 250 mls @ 20 mls/hr IV .[id number] [facility]; Protocol Last Admin: 07/22/18 08:55 Dose: 20 mls/hr Levothyroxine Sodium (Synthroid) 125 mcg PO DAILY@0600 [facility] Last Admin: 07/22/18 06:00 Dose: 125 mcg Magnesium Hydroxide (Milk Of Magnesia) 30 ml PO DAILY PRN PRN Reason: Constipation Metoprolol Succinate (Toprol Xl (Beta Bautista)) 50 mg PO DAILY [facility] Last Admin: 07/22/18 08:48 Dose: 50 mg Morphine Sulfate () 1 - 2 mg IV Q4H PRN PRN PRN Reason: PAIN Ondansetron HCl (Zofran) 4 mg IV Q8H PRN PRN PRN Reason: NAUSEA/VOMITING Sodium Chloride () 5 - 15 ml IV UD PRN PRN Reason: SALINE FLUSH Tolterodine Tartrate (Detrol La) 2 mg PO DAILY [facility] Last Admin: 07/22/18 08:47 Dose: 2 mg Venlafaxine HCl (Effexor Xr) 150 mg PO DAILY [facility] Last Admin: 07/22/18 08:47 Dose: 150 mg Medical Necessity - Tobacco Use Smoking Status: Never smoker Tobacco Use: Non-smoker Assessment/Plan All Active Problems Pulmonary embolism (Acute) DARLENE (acute kidney injury) (Acute) 1. Bilateral PE with saddle embolus SOB has improved. risk factors appear to be super morbid obesity and sedentary lifestyle 2D echo pending Duplex of LEs pending on IV heparin drip. Will transition to PO xarelto patient doesnt have insurance currently, and says she will have insurance from August 07 2018, as that is when 's insurance will kick in. Discussed with keycase assembler about getting patient a free 30-day prescription for p.o. Xarelto. 2. ?DARLENE Creatinine on admission was 1.49. Is down to 1.38 today. Currently be hydrated with IV fluids. Will continue. DC meloxicam on account of its nephrotoxic effect. 3. Hypertension: On metoprolol; hold on account of [place] I. Since creatinine is less than 1.5, will resume. 4. Hypothyroidism: On Synthroid 5. Anxiety and depression: On buspirone and venlafaxine 6. KINGSLEY: On CPAP which she is noncompliant with. 7. Super morbid obesity: BMI is over 67. Complicates acute condition, care and recovery. Weight loss and lifestyle changes encouraged. 8. GERD: on famotidine DVT prophylaxis: On heparin drip for PE. Code Visit Inpatient E&M: [id number] [facility] Hosp L3
--- NOTE | 2018-07-22 11:54 | PN_ITS ---
Patient Problems: Active and Suspected Problems Pulmonary embolism (Acute) DARLENE (acute kidney injury) (Acute) Subjective: Patient was admitted with a complaint of worsening shortness of breath more severe with exertion and so came into the ED. She was found to have bilateral pulmonary embolus with a saddle embolus. She has been admitted to be managed for acute PE. Patient's only risk factor seems to be his sedentary lifestyle and morbid obesity. Of note, she did have a long drive from [place] to we will start in March 2018. However this was about 4 months ago and so is less likely that this was a precipitating factor. Patient seen and examined this morning. She feels well and has no complaints. Shortness of breath has resolved. She denies any chest pain, palpitations, dizziness, abdominal pain, diarrhea vomiting. Review of systems otherwise negative. Of note, she is never had a clot before and has no known family history of any previous PE or DVT or any hypercoagulable disorder. She is currently on heparin drip. Pulmonology on board. Vitals/I&O's: Vital Signs Temp Pulse Resp BP Pulse Ox 98.1 F 85 14 136/80 H 97 07/22/18 08:56 07/22/18 08:56 07/22/18 08:56 07/22/18 08:56 07/22/18 08:56 Oxygen Delivery Method Room Air Weight: 364 lb 13.84 oz Body Mass Index (BMI) 57.1 Intake and Output for Last 24 Hours 07/20/18 07/21/18 07/22/18 23:59 23:59 23:59 Intake Total 392.6 / 392.6 605.6 / 605.6 Balance 392.6 / 392.6 605.6 / 605.6 General: Alert, Oriented x3, Cooperative, No apparent distress, - - super morbid obesity HEENT: Atraumatic, PERRLA, EOMI, Normocephalic Oral: Moist Mucosa Neck: Supple, No JVD, Negative Carotid Bruits, Negative Hepatojugular Reflux, No Nodes Lungs: Clear to auscultation, Normal air movement, No rhonchi, No wheeze, No rales Cardiovascular: Regular rate, Regular Rhythm, Normal S1, Normal S2, No murmurs Abdomen: Bowel Sounds Present, Soft, Non Tender, Non-Distended, No Hepato- splenomegaly Extremities: No clubbing, No cyanosis, No edema, Capillary Refill Less than 3 Seconds Skin: No rashes, No breakdown Musculoskeletal: No Tenderness to Palpation of Joints or Extremities Lymphatic: No Cervical, Supraclavicular, or Inguinal Adenopathy Neurological: Cranial nerves II-XII grossly intact, Neuro grossly intact, Motor Exam 5/5 strength throughout Psych/Mental Status: Normal Affect, Appropriate, Alert and oriented to time, place, person, mood and affect Laboratory Results 07/21/18 17:05: WBC 11.7 H, RBC 4.01 L, Hgb 12.4, Hct 37.1, MCV 92.5, MCH 30.9, MCHC 33.4, RDW 13.0, RDW Differential 43.0, Plt Count 353, MPV 10.6, Immature Gran % (Auto) 0.500, Neut % (Auto) 64.7, Lymph % (Auto) 22.3, [place] % (Auto) 9.7, Eos % (Auto) 2.4, Baso % (Auto) 0.4, Absolute Neuts (auto) 7.6, Absolute Lymphs (auto) 2.62, Total Counted Not Reportable 07/21/18 17:05: Sodium 138, Potassium 3.8, Chloride 108 H, Carbon Dioxide 19.0 L , Anion Gap 11, BUN 22 H, Creatinine 1.49 H, Estim Creat Clear Calc 44.41, Est GFR (MDRD) Af Amer 48 L, Est GFR (MDRD) Non-Af 40 L, BUN/Creatinine Ratio 14.8, Glucose 95, Calcium 8.9, Total Bilirubin 0.80, AST 36, ALT 47, Alkaline Phosphatase 92, Troponin I 0.024, Total Protein 7.9, Albumin 3.5, Globulin 4.4 H , Albumin/Globulin Ratio 0.8 L 07/21/18 17:05: D-Dimer Quant (PE/DVT) 7.43 H* 07/21/18 17:05: APTT 29.0 07/21/18 17:05: Magnesium 1.3 L 07/21/18 17:05: B-Natriuretic Peptide 203.2 H 07/22/18 01:00: APTT 115.5 H* 07/22/18 05:54: WBC 11.7 H, RBC 3.79 L, Hgb 11.6 L, Hct 35.7 L, MCV 94.2, MCH 30.6, MCHC 32.5, RDW 13.8, RDW Differential 46.8 H, Plt Count 342, MPV 10.4 07/22/18 05:54: Sodium 141, Potassium 4.0, Chloride 111 H, Carbon Dioxide 19.0 L , Anion Gap 11, BUN 20 H, Creatinine 1.38 H, Estim Creat Clear Calc 47.95, Est GFR (MDRD) Af Amer 52 L, Est GFR (MDRD) Non-Af 43 L, BUN/Creatinine Ratio 14.5, Glucose 109 H, Calcium 8.7 07/22/18 08:15: APTT 43.3 H Diagnostic Data Chest X-Ray 07/21/18 16:50 IMPRESSION: Mild elevation of right diaphragm. No acute cardiopulmonary findings. Negative for major consolidation, focal atelectasis or a substantial pleural effusion. Electronically Signed: Fang Doe MD at 17:14 EST , Service support , Chest CTA 07/21/18 18:04 IMPRESSION: Large pulmonary embolus of the distal right pulmonary artery extending into the right lower lobe artery and multiple branches. Extension into the right middle lobe and right upper lobe branches. Large embolus of the distal left pulmonary embolus extending into upper lobe, lingular and lower lobe branches. There is a slender interconnecting embolus from the right pulmonary artery embolus to the left pulmonary embolus, saddle embolus. Mild lingular infiltrate. Otherwise the lungs are clear without pleural effusion. Normal aorta heart and mediastinum. Incidental cholelithiasis. Electronically Signed: Fang Doe MD at 19:06 EST , Service support , ADDENDUM: 07/21/181926 IMPRESSION: Large pulmonary embolus of the distal right pulmonary artery extending into the right lower lobe artery and multiple branches. Extension into the right middle lobe and right upper lobe branches. Large embolus of the distal left pulmonary embolus extending into upper lobe, lingular and lower lobe branches. There is a slender interconnecting embolus from the right pulmonary artery embolus to the left pulmonary embolus, saddle embolus. Mild lingular infiltrate. Otherwise the lungs are clear without pleural effusion. Normal aorta heart and mediastinum. Incidental cholelithiasis. N.B. : The above information has been verbally conveyed by Fang Doe MD to Sarabjit Aguilar MD, on 07/21/2018 19:20:47 (ET). Electronically Signed: Fang Doe MD at 19:06 EST , Service support , Current Medications Acetaminophen (Tylenol) 650 mg PO Q6H PRN PRN PRN Reason: Non-cardiac pain (mod-severe) Hydrocodone Bitart/Acetaminophen ([place] 5mg-325mg) 1 - 2 tablet PO Q6H PRN PRN PRN Reason: Moderate-severe pain Al Hydroxide/Mg Hydroxide (Mylanta Ii) 30 ml PO Q6H PRN PRN PRN Reason: Gastric burning Aspirin (Aspirin, Baby) 81 mg PO DAILY@0800 [facility] Last Admin: 07/22/18 08:47 Dose: 81 mg Buspirone HCl (Buspar) 10 mg PO BID [facility] Last Admin: 07/22/18 08:47 Dose: 10 mg Famotidine (Pepcid) 20 mg PO BID [facility] Last Admin: 07/22/18 08:48 Dose: 20 mg Heparin Sodium (Porcine) (Heparin Na) 0 unit IV UD PRN; Protocol Last Admin: 07/22/18 08:46 Dose: 1,000 unit Hydralazine HCl (Apresoline Iv) 10 mg IV Q4H PRN PRN PRN Reason: SBP > 160 Heparin Sodium/Dextrose () 25,000 units in 250 mls @ 20 mls/hr IV .[id number] [facility]; Protocol Last Admin: 07/22/18 08:55 Dose: 20 mls/hr Levothyroxine Sodium (Synthroid) 125 mcg PO DAILY@0600 [facility] Last Admin: 07/22/18 06:00 Dose: 125 mcg Magnesium Hydroxide (Milk Of Magnesia) 30 ml PO DAILY PRN PRN Reason: Constipation Metoprolol Succinate (Toprol Xl (Beta Bautista)) 50 mg PO DAILY [facility] Last Admin: 07/22/18 08:48 Dose: 50 mg Morphine Sulfate () 1 - 2 mg IV Q4H PRN PRN PRN Reason: PAIN Ondansetron HCl (Zofran) 4 mg IV Q8H PRN PRN PRN Reason: NAUSEA/VOMITING Sodium Chloride () 5 - 15 ml IV UD PRN PRN Reason: SALINE FLUSH Tolterodine Tartrate (Detrol La) 2 mg PO DAILY [facility] Last Admin: 07/22/18 08:47 Dose: 2 mg Venlafaxine HCl (Effexor Xr) 150 mg PO DAILY [facility] Last Admin: 07/22/18 08:47 Dose: 150 mg Medical Necessity - Tobacco Use Smoking Status: Never smoker Tobacco Use: Non-smoker Assessment/Plan All Active Problems Pulmonary embolism (Acute) DARLENE (acute kidney injury) (Acute) 1. Bilateral PE with saddle embolus * SOB has improved. * risk factors appear to be super morbid obesity and sedentary lifestyle * 2D echo pending * Duplex of LEs pending * on IV heparin drip. Will transition to PO xarelto * patient doesnt have insurance currently, and says she will have insurance from August 07 2018, as that is when 's insurance will kick in. * Discussed with case liner about getting patient a free 30-day prescription for p.o. Xarelto. * 2. ?DARLENE * Creatinine on admission was 1.49. Is down to 1.38 today. * Currently be hydrated with IV fluids. Will continue. * DC meloxicam on account of its nephrotoxic effect. * 3. Hypertension: On metoprolol; hold on account of [place] I. Since creatinine is less than 1.5, will resume. 4. Hypothyroidism: On Synthroid 5. Anxiety and depression: On buspirone and venlafaxine 6. KINGSLEY: On CPAP which she is noncompliant with. 7. Super morbid obesity: BMI is over 67. Complicates acute condition, care and recovery. Weight loss and lifestyle changes encouraged. 8. GERD: on famotidine DVT prophylaxis: On heparin drip for PE. Code Visit Inpatient E&M: [id number] [facility] Hosp L3
[2018-07-22] MEDS: APIXABAN 5 MG TABLET 10 MG PO ×2 (12:26→21:09)
[2018-07-22 14:32] LABS: Partial Thromboplast Time 33.4 Seconds (24.1-36.2)
[2018-07-23] VITALS (7 sets, daily range): BP systolic 94–127; BP diastolic 60–86; PULSE 64–92; RESP 16–18; TEMP 36.6–36.9; O2SAT 91–98
[2018-07-23] MEDS: Levothyroxine 125 MCG Tablet PO (03:11)
[2018-07-23] MEDS: APIXABAN 5 MG TABLET 10 MG PO (08:59)
[2018-07-23] MEDS: Famotidine 20 MG Tablet PO (08:59)
[2018-07-23] MEDS: Aspirin 81 MG TAB.CHEW PO (08:59)
[2018-07-23] MEDS: Tolterodine Tartrate 2 MG CAP.SA PO (08:59)
[2018-07-23] MEDS: Venlafaxine XR 150 MG Capsule PO (08:59)
[2018-07-23] MEDS: busPIRone 5 MG Tablet 10 MG PO (08:59)
[2018-07-23] MEDS: Metoprolol(XL)Succ 50 MG Tablet PO (08:59)
--- NOTE | 2018-07-23 10:08 | DCINST_ITS ---
- Discharge Diagnoses Current Active Problems: Current Active and Chronic Problems Pulmonary embolism (Acute) HTN (hypertension) (Chronic) Anxiety and depression (Chronic) DARLENE (acute kidney injury) (Acute) Hypothyroidism (Chronic) Morbid obesity (Chronic) KINGSLEY (obstructive sleep apnea) (Chronic) You will use the following diet at home:: Cardiac Your food should be the consistency of: Regular Your liquids should be the consistency of: Regular/Thin Discharge Activity: Return to Normal Activity May resume sexual activity in: No Restrictions Weight Bearing Status: Weight bearing as tolerated Call your doctor if you observe: Shortness of breath, Dizziness, Chest pain Allergies/Adverse Reactions: Allergies No Known Allergies Allergy (Verified 07/21/18 16:18) Medications to take at Discharge Aspirin [Aspirin, Baby] 81 mg PO DAILY@0800 07/21/18 Buspirone HCl 10 mg PO BID 07/21/18 Levothyroxine [Synthroid] 125 mcg PO DAILY 07/21/18 Lisinopril [Zestril] 20 mg PO DAILY 07/21/18 Metoprolol(XL)Succ [Toprol Xl (Beta Bautista)] 50 mg PO DAILY 07/21/18 Oxybutynin Chloride [Oxybutynin Chloride ER] 10 mg PO DAILY 07/21/18 Venlafaxine HCl [Venlafaxine HCl ER] 150 mg PO DAILY 07/21/18 Apixaban [Eliquis] 5 mg PO UD #30 tab.ds.pk 07/23/18 The following prescriptions were given: Apixaban [Eliquis] 5 mg PO UD #30 tab.ds.pk Primary Care Physician: NOT,DEFINED [NON-STAFF] - Please follow up with your Primary Care Physician in: Please follow up with your PCP Dr Garcia in one week Test Results: Test results from this visit will be discussed in further detail at your follow- up appointment, if applicable. Please Follow Up With: William Bone DO When: 1-2 weeks Proposed Discharge Date: 07/23/18
--- NOTE | 2018-07-23 10:09 | DS.PCM_ITS ---
Discharge Date and Diagnosis Date of Admission: 07/21/18 Date of Discharge: 07/23/18 - Primary Discharge Diagnosis Active and Suspected Problems Pulmonary embolism (Acute) DARLENE (acute kidney injury) (Acute) secondary pulmonary hypertension - Secondary Discharge Diagnosis Chronic Problems HTN (hypertension) (Chronic) Anxiety and depression (Chronic) Hypothyroidism (Chronic) Morbid obesity (Chronic) KINGSLEY (obstructive sleep apnea) (Chronic) Hospital Course and Treatment Imaging Results: Diagnostic Data Chest X-Ray 07/21/18 16:50 IMPRESSION: Mild elevation of right diaphragm. No acute cardiopulmonary findings. Negative for major consolidation, focal atelectasis or a substantial pleural effusion. Electronically Signed: Fang Doe MD at 17:14 EST , Service support , Chest CTA 07/21/18 18:04 IMPRESSION: Large pulmonary embolus of the distal right pulmonary artery extending into the right lower lobe artery and multiple branches. Extension into the right middle lobe and right upper lobe branches. Large embolus of the distal left pulmonary embolus extending into upper lobe, lingular and lower lobe branches. There is a slender interconnecting embolus from the right pulmonary artery embolus to the left pulmonary embolus, saddle embolus. Mild lingular infiltrate. Otherwise the lungs are clear without pleural effusion. Normal aorta heart and mediastinum. Incidental cholelithiasis. Electronically Signed: Fang Doe MD at 19:06 EST , Service support , ADDENDUM: 07/21/181926 IMPRESSION: Large pulmonary embolus of the distal right pulmonary artery extending into the right lower lobe artery and multiple branches. Extension into the right middle lobe and right upper lobe branches. Large embolus of the distal left pulmonary embolus extending into upper lobe, lingular and lower lobe branches. There is a slender interconnecting embolus from the right pulmonary artery embolus to the left pulmonary embolus, saddle embolus. Mild lingular infiltrate. Otherwise the lungs are clear without pleural effusion. Normal aorta heart and mediastinum. Incidental cholelithiasis. N.B. : The above information has been verbally conveyed by Fang Doe MD to Sarabjit Aguilar MD, on 07/21/2018 19:20:47 (ET). Electronically Signed: Fang Doe MD at 19:06 EST , Service support , Interpretation Summary Normal LV size. Left ventricular systolic function is normal. The estimated ejection fraction is 55 %. Stage 1 diastolic dysfunction. Pulmonary artery systolic pressure is 51 mmHg. Moderate pulmonary hypertension. pulmonology Operations: None Procedures: 2-D Echocardiogram Summary of Care Provided: The patient is a 48 year old F with past medical history significant for hypothyroidism, hypertension, morbid obesity and KINGSLEY noncompliant with her CPAP as well as anxiety and depression. She was admitted through the ED on 07/21/2018 with a complaint of bilateral lower extremity discomfort and edema and worsening shortness of breath which is aggravated by exertion. She denied any chest pain. Patient had moved from [place] to [place] in March 2018 and states she drove that distance. subsequently she felt fine until the symptoms started. EKG in the ED showed no acute ST changes and chest x-ray showed mild elevation of the right diaphragm with no acute cardiopulmonary findings. CT angiogram showed large pulmonary embolus of the distal right pulmonary artery extending into the right lower lobe artery and multiple branches with extension into the right middle lobe and right upper lobe branches as well and a large embolus of the distal left pulmonary embolus extending to the upper lobe with lingula and lower lobe branches and a slender interconnecting thrombus from the right pulmonary artery and the rest of the left pulmonary artery embolus, saddle embolus and mild lingular infiltrate. Lungs are otherwise clear. She was admitted and managed for acute bilateral pulmonary embolism with saddle embolus with a main risk factors being morbid obesity and a very sedentary lifestyle. Even though she had had a long distance journey which could be a risk factor, it had occurred about 4 months prior to this presentation and so was less likely. She was started on heparin drip. Duplex of the lower extremities were negative for DVT. She had a 2D echo which showed normal left ventricular size and systolic function with EF of 55% in stage I diastolic dysfunction and no regional wall motion abnormalities noted. She had a mildly dilated right ventricle with mild right ventricular systolic dysfunction and right atrium mildly enlarged. Pulmonary artery systolic pressure was 51 mmHg. She was transitioned to p.o. Eliquis and heparin drip was stopped. She was discharged on 07/23/2018 after being given a card for p.o. Eliquis for 30-day supply. She is to take 10 mg twice daily until Saturday, July 28, 2018. She is going to continue on p.o. Eliquis 5 mg twice daily. Of note, patient stated that she did not have insurance as her insurance was due to kick in on August 07, 2018. She was therefore given a prescription card for free 30-day supply of Eliquis. She is to follow-up with her primary care doctor and unit clerk. Patient counseled that she will need a repeat 2D echo to assess pulmonary artery systolic pressure as it is expected to come down once the clots resolved. Patient seen and examined prior to discharge. She had no complaints and felt well. Review of systems otherwise negative. Labs and vitals reviewed. o/e: Vital Signs Height 5 ft 7 in Weight: 364 lb 13.84 oz Weight in Pounds 364.9 lbs Pulse Ox [AMBULATING on Room 91 Air] Pulse Ox [At REST on Room Air] 94 Pulse Ox 98 Temperature 97.9 F Pulse Rate 78 Respiratory Rate 16 Blood Pressure 127/86 Blood Pressure Position Semi-Fowlers [] General: Alert, Oriented x3, Cooperative, No apparent distress, - - super morbid obesity HEENT: Atraumatic, PERRLA, EOMI, Normocephalic Oral: Moist Mucosa Neck: Supple, No JVD, Negative Carotid Bruits, Negative Hepatojugular Reflux, No Nodes Lungs: Clear to auscultation, Normal air movement, No rhonchi, No wheeze, No rales Cardiovascular: Regular rate, Regular Rhythm, Normal S1, Normal S2, No murmurs Abdomen: Bowel Sounds Present, Soft, Non Tender, Non-Distended, No Hepato- splenomegaly Extremities: No clubbing, No cyanosis, No edema, Capillary Refill Less than 3 Seconds Skin: No rashes, No breakdown Musculoskeletal: No Tenderness to Palpation of Joints or Extremities Lymphatic: No Cervical, Supraclavicular, or Inguinal Adenopathy Neurological: Cranial nerves II-XII grossly intact, Neuro grossly intact, Motor Exam 5/5 strength throughout Psych/Mental Status: Normal Affect, Appropriate, Alert and oriented to time, place, person, mood and affect Plan as described above - Physical Exam Vital Signs Temp Pulse Resp BP Pulse Ox 97.9 F 78 16 127/86 H 98 07/23/18 08:52 07/23/18 08:59 07/23/18 08:52 07/23/18 08:52 07/23/18 08:52 Oxygen Delivery Method Room Air Weight: 364 lb 13.84 oz Body Mass Index (BMI) 57.1 Intake and Output for Last 24 Hours 07/21/18 07/22/18 07/23/18 23:59 23:59 23:59 Intake Total 392.6 / 392.6 2224.6 / 2224.6 300 / 300 Balance 392.6 / 392.6 2224.6 / 2224.6 300 / 300 Laboratory Tests Past 24 Hrs 07/22/18 14:10 APTT 33.4 Discharge Diet: Low fat/ Low Cholesterol Discharge Activity: Return to Normal Activity May resume sexual activity in: No Restrictions Weight Bearing Status: Weight bearing as tolerated Call your doctor if you observe: Shortness of breath, Dizziness, Chest pain Home Medications: Medications to take at Discharge Aspirin [Aspirin, Baby] 81 mg PO DAILY@0800 07/21/18 Buspirone HCl 10 mg PO BID 07/21/18 Levothyroxine [Synthroid] 125 mcg PO DAILY 07/21/18 Lisinopril [Zestril] 20 mg PO DAILY 07/21/18 Metoprolol(XL)Succ [Toprol Xl (Beta Bautista)] 50 mg PO DAILY 07/21/18 Oxybutynin Chloride [Oxybutynin Chloride ER] 10 mg PO DAILY 07/21/18 Venlafaxine HCl [Venlafaxine HCl ER] 150 mg PO DAILY 07/21/18 Apixaban [Eliquis] 5 mg PO UD #30 tab.ds.pk 07/23/18 Following Prescrptions Were Given to Patient: Apixaban [Eliquis] 5 mg PO UD #30 tab.ds.pk Primary Care Physician: NOT,DEFINED [NON-STAFF] - Please follow up with your Primary Care Physician in: Please follow up with your PCP Dr Garcia in one week Please Follow Up With: William Bone DO When: 1-2 weeks Disposition: Home Minutes spent on discharge:: 40 Patient Condition:: Stable Medical Necessity - Tobacco Use Smoking Status: Never smoker Tobacco Use: Non-smoker Meaningful Use Info Meaningful Use Diagnoses (Choose all that apply): VTE - VTE Anticoag overlap given w/in hospital stay or rx'd at dc?: Yes Pt receive overlap for 5 days?: No Reason overlap not ordered, prescribed, or given for 5 days: Treatment Not Indicated - discharged on PO eliquis Code Visit Inpatient E&M: 90863 Disch Hosp
== END 2018-07-23 11:39 | disposition home or self-care (01) | DRG 176 ==
LOC: ED 17:36 → PCU 19:50
PROVIDERS: Admitting Provider Family Medicine; Emergency Provider Emergency Medicine; Referring Provider Family Medicine; Visit Provider Student in an Organized Health Care Education/Training Program
DX: I26.92 Saddle embolus of pulmonary artery without acute cor pulmonale (principal); Z68.43 Body mass index [BMI] 50.0-59.9, adult; N17.9 Acute kidney failure, unspecified; E03.9 Hypothyroidism, unspecified; E66.01 Morbid (severe) obesity due to excess calories; G47.33 Obstructive sleep apnea (adult) (pediatric); I10 Essential (primary) hypertension; I27.20 Pulmonary hypertension, unspecified; F41.9 Anxiety disorder, unspecified; F32.9 Major depressive disorder, single episode, unspecified
CPT/HCPCS: 36415; 71045; 71275; 80048; 80053; 83735; 83880; 84484; 85025; 85027; 85379; 85730; 93005; 93306; 93970; 97802; 99283; J7030; Q9957; Q9967; A4216

== ENCOUNTER 2018-07-28 16:18 | Emergency (ER) | payer SELFPAY ==
[2018-07-28 16:22] VITALS: BP 131/82; PULSE 89; RESP 22; TEMP 36.6; O2SAT 94; BMI 54.5
--- NOTE | 2018-07-28 16:33 | EKG12_ITS ---
Test Reason : CP/SOB Blood Pressure : / mmHG Vent. Rate : 085 BPM Atrial Rate : 085 BPM P-R Int : 160 ms QRS Dur : 066 ms QT Int : 396 ms P-R-T Axes : 029 031 039 degrees QTc Int : 471 ms Normal sinus rhythm Normal ECG Confirmed by DARVIN HAILE, DELFINO ([id number]), proposal editor POP NARVAEZ ([id number]) on 08/01/2018 4:43:37 PM Referred By: JOSSIE Confirmed By:DELFINO BOSTON MD
--- NOTE | 2018-07-28 16:33 | CT_ITS ---
STUDY: CTA CHEST REASON FOR EXAM: Female, 48 years old. Shortness of breath. Recent pulmonary embolus. RADIATION DOSAGE (If Supplied By Facility): CTDIvol = ( 30.02 ) mGy, DLP = ( 651.14 ) mGycm TECHNIQUE: The examination was performed with the intravenous administration of Isovue 370 100ML IV. Post-processing of the angiographic images was performed, with multiplanar reformation and 3D reconstruction. Individualized dose optimization techniques were used for this CT. COMPARISON: 07/21/2018 FINDINGS: Again noted are bilateral pulmonary emboli. When compared with the prior exam, the embolus burden is slightly decreased. The previously seen saddle embolus is no longer present. However, there are residual pulmonary emboli in the right and left distal main pulmonary arteries which extend into the segmental and subsegmental branches of both lungs. There is no new pulmonary embolus identified. There is no evidence of thoracic aortic aneurysm or dissection. The heart and pericardium are within normal limits. There are no pulmonary infiltrates or pleural effusions. There is no pneumothorax. Images through the upper abdomen demonstrate no significant abnormality. There are stable mild degenerative changes in the spine. CT/CTA Chest W/WO Contrast IMPRESSION: Interval decrease in the previously seen pulmonary emboli, as described above. No new pulmonary emboli identified. Clear lungs. Electronically Signed: Wily Mcgregor, at 17:45 EST Tel , Service support ,
--- NOTE | 2018-07-28 16:35 | ED.VISSUMM ---
- ER Visit Summary Date of Service: 07/28/18 Chief Complaint: Shortness of breath and pleuritic chest pain a week History of Present Illness: The patient is a 48 F last week and was diagnosed with pulmonary emboli hospitalized started on the anticoagulant Eliquis. She is been doing well today she felt more short of breath and had more chest pain. She states they never found any DVTs in her legs. Physical Examination: Middle-aged female. Vital signs are stable. She is afebrile. She does not look septic or toxic. She is in no acute distress. Her pulse ox on room air is 94%. She is not hypoxic. HEENT exam unremarkable. Neck nontender no lymphadenopathy. Lungs clear to auscultation bilaterally. Heart regular rhythm rate about 85 no murmur. Abdomen is soft and nontender. Normal bowel sounds no. Extremities moves all 4. Calves nontender without edema or cords. Neurologically she is awake alert with no focal motor deficits. Test Results: CBC normal. BMP unremarkable with a creatinine 1.4. Gap of 12. Troponin normal. EKG sinus rhythm rate 85 unchanged from prior EKG from about a week ago. CTA of the chest shows bilateral pulmonary emboli. However it is actually improved from the last CTA a week ago. There is decreased clot burden. In the saddle embolus seems to have resolved. Read by the radiologist and reviewed by me. Emergency Department Course and Treatment: Repeat exam the patient is doing well at 1801. She is comfortable being discharged home. Continue her current anticoagulation. Treatment Plan: Continue current medications. Follow-up with her primary care physician as needed. Disposition: Discharge Impression: Chest pain secondary to recently diagnosed pulmonary emboli (improved on anticoagulation) Acute anxiety This note was generated with [employer] dictation software. It may contain incorrect words, spelling, and punctuation that were not noted in review of the chart prior to signing ED Disposition - Plan for ED Patient: Referrals: Marie Alfaro [Primary Care Provider] -
[2018-07-28] MEDS: 0.9% Normal Saline 1,000 ML 999 ML IV (16:42)
[2018-07-28 16:57] LABS: Absolute Lymphocyte Count 2.91 X10^3/ul (0.83-4.51); Absolute Neutrophil Count 6.5 X10^3/uL (2.0-7.7); Basophil# 0.03 X10^3/uL; Basophil% 0.3 % (0-1); Eosinophil# 0.32 X10^3/uL; Eosinophils% 2.9 % (0-5); Hematocrit 40.5 % (37-47); Hemoglobin 13.2 g/dl (12.0-15.0); Lymphocyte # 2.91 X10^3/ul (4.0); Lymphocyte % 26.5 % (19-41); Mean Corp Hgb Conc 32.6 g/gl (32-36); Mean Corpuscular Hgb 30.4 pg (27.0-32.0); Mean Corpuscular Volume 93.3 fL (81-99); Mean Platelet Vol. 10.2 fl (6.2-12.0); Monocyte# 1.19 X10^3/uL; Monocyte% 10.8 % (0-10); Neutrophil # 6.49 X10^3/uL (2.7-7.7); Platelet Count 441 K/mm3 (150-450); RBC Distribution Width SD 47.3 fl (35.1-43.9); Red Blood Count 4.34 M/mm3 (4.2-5.4)
[2018-07-28 17:00] LABS: Differential Indicated SCAN CRITERIA MET; POSITIVE COUNT NO; POSITIVE DIFFERENTIAL NO; POSITIVE MORPHOLOGY YES
[2018-07-28 17:02] LABS: Anion Gap 12 (5-15); BUN 20 mg/dL (7-18); BUN/Creat Ratio 13.7 RATIO (10-20); Calcium,Total 9.7 mg/dL (8.5-10.1); Chloride 107 mmol/L (98-107); Creatinine, Serum 1.46 mg/dL (0.55-1.02); EST Glomerular Filtration Rate 40 mL/min (>60); Est Glom Filt Rate - Afr Amer 49 mL/min (>60); Estimated Creatinine Clearance 47.02 ml/min; Glucose 94 mg/dL (74-106); Potassium 4.4 mmol/L (3.5-5.1); Sodium Level 139 mmol/L (136-145)
[2018-07-28 17:33] LABS: Platelet Estimate ADEQUATE (ADEQ); Red Cell Morphology NORM C+C NORMAL (NORM C&C)
[2018-07-28 17:42] VITALS: BP 106/73; PULSE 73; RESP 20; O2SAT 100
--- NOTE | 2018-07-28 18:03 | ED.DEP ---
ED Disposition - Plan for ED Patient: Disposition: Home or Assisted Living Instructions: Pulmonary Embolism Referrals: Marie Alfaro [Primary Care Provider] - 1 Week if not improving Additional Instructions: Continue your current medications and your current blood thinner.
[2018-07-28 18:16] VITALS: BP 113/73; PULSE 72; RESP 24; O2SAT 100
== END 2018-07-28 18:17 | disposition home or self-care (01) ==
PROVIDERS: Emergency Provider Emergency Medicine
DX: I26.99 Other pulmonary embolism without acute cor pulmonale (principal); Z79.01 Long term (current) use of anticoagulants; F41.9 Anxiety disorder, unspecified; I10 Essential (primary) hypertension; R19.7 Diarrhea, unspecified
CPT/HCPCS: 71275; 80048; 84484; 85025; 93005; 96360; 99284; J7030; Q9967; A4216

== ENCOUNTER → 2018-08-15 21:47 | Outpatient (CLI) | payer BC, SELFPAY ==
[2018-08-08 08:10] VITALS: BMI 54.5
== END ==
PROVIDERS: Referring Provider Nurse Practitioner Acute Care; Visit Provider Nurse Practitioner Acute Care
DX: G47.33 Obstructive sleep apnea (adult) (pediatric) (principal)
CPT/HCPCS: 95811

== ENCOUNTER → 2018-08-18 10:49 | Outpatient (CLI) | payer BC, SELFPAY ==
[2018-08-08 08:10] VITALS: BMI 54.5
[2018-08-18 11:29] VITALS: PULSE 119; PULSE 132; PULSE 136; PULSE 138; PULSE 140; PULSE 85; PULSE 97; PULSE 98; O2SAT 92; O2SAT 93; O2SAT 94; O2SAT 96; O2SAT 98
--- NOTE | 2018-08-19 08:39 | PCM.PSN.6M ---
PSN 6 Minute Walk Test - 6 Minute Walk Test 6 Minute Walk Test: 6 Minute Walk Test PSN:6-Minute Walk Test Start: 08/18/18 11:29 Freq: Status: Active Protocol: [id number].6MINW Document 08/18/18 11:29 STAS (Rec: 08/18/18 11:33 STAS [id number]) 6 Minute Walk Test Date Performed 08/18/18 Time Performed 11:00 Height 5 ft 7 in Weight: 359 lb Weight in Pounds 359.[address]: Sana Henderson Assistive device used: None Pre-test Oxygen Delivery Method Room Air Pulse Ox (%) 96 Pulse Rate (60-100 beats/min) 85 Dyspnea Kishan Scale (0-10) 0 Exertion Kishan Scale (6-20) 6 1st minute Oxygen Delivery Method Room Air Pulse Ox (%) 94 Pulse Rate (60-100 beats/min) 98 2nd minute Oxygen Delivery Method Room Air Pulse Ox (%) 94 Pulse Rate (60-100 beats/min) 119 H 3rd minute Oxygen Delivery Method Room Air Pulse Ox (%) 93 Pulse Rate (60-100 beats/min) 132 H 4th minute Oxygen Delivery Method Room Air Pulse Ox (%) 92 Pulse Rate (60-100 beats/min) 136 H 5th minute Oxygen Delivery Method Room Air Pulse Ox (%) 93 Pulse Rate (60-100 beats/min) 138 H 6th minute Oxygen Delivery Method Room Air Pulse Ox (%) 93 Pulse Rate (60-100 beats/min) 140 H Dyspnea Kishan Scale (0-10) 3 Exertion Kishan Scale (6-20) 12 Post-test Oxygen Delivery Method Room Air Pulse Ox (%) 98 Pulse Rate (60-100 beats/min) 97 Full Laps Walked 18 Partial Lap, Number of Tiles Walked 10 Total Distance Walked (ft) 1072 - Interpretation Interpretation: The patient ambulated 1072 feet over the course of 6 minutes beginning on room air without assistive devices or breaks. Pretesting oxygen saturation was noted to be 96% on room air. With ambulation, the emil oxygen saturation was 92%. The patient did become progressively tachycardic with exertion. This testing did indicate the presence of significant exertional oxygen desaturation. - Recommendations Recommendations: There is no indication for the use of supplemental oxygen at this time. However, close interval follow-up is recommended, given the degree of oxygen desaturation noted during this study.
== END ==
PROVIDERS: Referring Provider Nurse Practitioner Acute Care; Visit Provider Nurse Practitioner Acute Care
DX: R06.00 Dyspnea, unspecified (principal)
CPT/HCPCS: 94618

== ENCOUNTER → 2018-08-22 09:15 | Outpatient (CLI) | payer BC, SELFPAY ==
[2018-08-08 08:10] VITALS: BMI 54.5
--- NOTE | 2018-08-22 14:06 | PFTCOMP ---
COMPLETE PULMONARY FUNCTION TEST INTERPRETATION Brief HPI: Patient is a 48 year old female, currently under the care of Dr. Bone, who presents to [facility] for complete pulmonary function tests secondary to diagnosis of dyspnea. Respiratory therapist reports good effort and reproducible results. Interpretation: Forced expiration spirometry shows no large airways obstructive ventilatory defect with an FEV1 of 95% predicted. There is no significant bronchodilator response by strict ATS criteria. Spirograms are of good quality and plateau normally. The respiratory flow volume loop shows a normal pattern. Lung volumes by body plethysmography show a normal total lung capacity at 5.37 L, 96% predicted. All other lung volumes are within normal limits. Diffusion capacity by carbon monoxide is decreased at 56% predicted. The airway resistance is normal. No previous pulmonary function tests were available for review. Impression: Isolated reduction diffusion capacity in a pattern consistent with a pulmonary vascular disorder.
== END ==
PROVIDERS: Referring Provider Nurse Practitioner Acute Care; Visit Provider Nurse Practitioner Acute Care
DX: R06.00 Dyspnea, unspecified (principal)
CPT/HCPCS: 94060; 94726; 94729

== ENCOUNTER → 2018-10-03 09:21 | Outpatient (CLI) | payer BC, SELFPAY ==
[2018-08-08 08:10] VITALS: BMI 54.5
--- NOTE | 2018-10-03 09:23 | US_ITS ---
STUDY: THYROID ULTRASOUND REASON FOR EXAM: Female, 48 years old. Goiter TECHNIQUE: Ultrasound evaluation of the thyroid was performed with real-time and static cai-scale imaging. COMPARISON: None. FINDINGS: RIGHT LOBE: The right lobe of the thyroid gland measures 4.7 x 1.5 x 1.4 cm. There is a heterogeneous echotexture. There are no demonstrated solid, cystic or complex lesions. LEFT LOBE: The left lobe of the thyroid gland measures 4.6 x 1.3 x 1.2 cm. There is a heterogeneous echotexture. There is a 0.3 x 0.2 cm solid nodule in the left lobe of the thyroid. ISTHMUS: The isthmus measures 4 mm. The regional lymph nodes are normal. US/Thyroid IMPRESSION: Heterogeneous thyroid. 3 mm solid nodule in the left lobe. No additional nodules. Electronically Signed: Wily Mcgregor, at 16:12 EDT Tel , Service support ,
== END ==
DX: E04.9 Nontoxic goiter, unspecified (principal)
CPT/HCPCS: 76536

== ENCOUNTER → 2018-12-11 13:35 | Outpatient (CLI) | payer BC, SELFPAY ==
[2018-11-15 07:54] VITALS: BMI 57.4
[2018-11-21 09:07] VITALS: BMI 57.8
== END ==
PROVIDERS: Referring Provider Internal Medicine Critical Care Medicine; Visit Provider Internal Medicine Critical Care Medicine
DX: G47.33 Obstructive sleep apnea (adult) (pediatric) (principal)
CPT/HCPCS: 98960; G0463

== ENCOUNTER → 2019-01-18 06:25 | Outpatient (CLI) | payer BC, SELFPAY ==
[2019-01-03 10:29] VITALS: BMI 57.3
--- NOTE | 2019-01-18 06:28 | ECHOCS_ITS ---
Reason For Study: NICOLE METZ Procedure This was a 2D Doppler, Color Flow transthoracic echocardiogram. The study was technically difficult. Contrast injection was performed. Exam performed in department. Left Ventricle Normal LV size. The estimated ejection fraction is 55 %. No evidence for diastolic dysfunction. No regional wall motion abnormalities noted. Right Ventricle Normal RV size. Normal systolic function. Atria Normal left atrium. Normal right atrium. No doppler evidence for ASD. Mitral Valve There is no mitral valve stenosis. No mitral valve insufficiency. Tricuspid Valve There is no tricuspid stenosis. Trivial tricuspid valve insufficiency. Unable to estimate RV systolic pressure due to insufficient tricuspid regurgitant envelope. Aortic Valve Trisinus/trileaflet aortic valve. There is no aortic stenosis. Pulmonic Valve There is no pulmonic valvular stenosis. No pulmonic valve insufficiency. Great Vessels Normal aortic root. Pericardium/Pleural No pericardial effusion. Medication Diluted definity 3.5ml given slow IV push to enhance endocardial definition. MMode/2D Measurements & Calculations LVIDd: 5.1 cm IVSd: 0.70 cm Ao root diam: 3.4 cm LVIDs: 4.0 cm LVPWd: 0.75 cm RVDd: 4.7 cm FS: 22.2 % LAV(MOD-bp): 59.9 ml LVAd ap4: 36.9 cm2 SV(MOD-sp4): 74.9 ml LAV(MOD-bp) Indexed: 22.9 ml/m2 EDV(MOD-sp4): 122.8 ml LAV(MOD-sp2): 64.9 ml EDV(sp4-el): 129.8 ml LAV(MOD-sp4): 55.0 ml LVAs ap4: 20.6 cm2 ESV(MOD-sp4): 47.8 ml ESV(sp4-el): 51.9 ml EF(MOD-sp4): 61.0 % EF(sp4-el): 60.0 % SV(sp4-el): 77.9 ml LA A4 area: 20.0 cm2 LA dimension(2D): 4.2 cm RA A4 area: 22.7 cm2 Time Measurements MV dec time: 0.24 sec Doppler Measurements & Calculations MV E max nacho: 93.3 cm/sec Lat Peak E' Nacho: 14.1 cm/sec Med Peak E' Nacho: 10.8 cm/sec MV A max nacho: 71.3 cm/sec E/E' lat: 6.6 E/E' med: 8.7 MV E/A: 1.3 Ao V2 max: 139.1 cm/sec LV V1 max: 115.1 cm/sec TR max nacho: 232.6 cm/sec Ao max P.7 mmHg LV V1 max P.3 mmHg TR max P.8 mmHg Interpretation Summary The study was technically difficult. Diluted definity 3.5ml given slow IV push to enhance endocardial definition. The estimated ejection fraction is 55 %. No evidence for diastolic dysfunction. The study was technically difficult. Ordering Physician: Becky Cazares Referring Physician: NATHAN HAMPTONNILES PATRICIA Performed By: Tere Griffiths, SABINE, RVT
--- NOTE | 2019-01-22 12:13 | STRESSREP_ITS ---
Stress Test Report Date: 01/22/2019 Procedure: Pharmacologic stress nuclear imaging study Indications: Chest pain Consent: Per the patient Procedure: The patient underwent pharmacologic (Regadenoson) evaluation with a peak heart rate of 92 beats per minute (53 %predicted maximal heart rate) and a peak blood pressure of 130/74 mmHg. The baseline ECG demonstrated normal sinus rhythm. EKG during lexiscan infusion revealed no significant change from baseline. EKG post infusion revealed no significant change from baseline [There were no cardiac dysrhythmias pretest, during pharmacologic infusion, or recovery]. [There was no complaint of chest discomfort during pharmacologic infusion or recovery]. The examination was discontinued secondary to completion of protocol. Impression: 1. Lexiscan stress test test is negative for Lexiscan infusion induced EKG changes of ischemia. 2. Lexiscan stress test test is negative for Lexiscan infusion induced chest pain. 3. Results of the nuclear portion of the test is as below Myocardial perfusion imaging study: Technique: The patient was injected with 14.8 millicuries of technetium 99m Cardiolite and subsequently rest SPECT Cardiolite nuclear imaging was obtained in the horizontal long, vertical long, and short axis views. The patient underwent pharmacologic (Regadenoson) evaluation. Please see above for details. The patient was injected with 44.5 millicuries of technetium 99m Cardiolite and subsequently stress SPECT Cardiolite nuclear imaging was obtained in the horizontal long, vertical long, and short axis views. A gated Cardiolite study at peak stress was obtained. Interpretation: Rest and stress SPECT Cardiolite nuclear imaging status post realignment, normal ization, and attenuation correction demonstrate mildly decreased radioisotope uptake in the anterior wall on both the rest and stress images. Gated images reveal no significant regional wall motion abnormalities. These findings are suggestive of breast attenuation artifact. There is no evidence of significant ischemia or infarction. The reported LVEF is 65 %. Impression: 1. There is no evidence of significant ischemia or infarction. 2. Estimated ejection fraction is 65%. This note was generated with [employer] software. It may contain incorrect words, spelling, and punctuation that were not noted in checking the note before signing.
== END ==
PROVIDERS: Referring Provider Specialist; Visit Provider Specialist
DX: R06.02 Shortness of breath (principal); R07.9 Chest pain, unspecified
CPT/HCPCS: 78452; 93017; 93306; A9500; Q9957; A4216; C8929; J2785

== ENCOUNTER → 2019-07-19 | Outpatient (CLI) | payer BC, SELFPAY ==
[2019-02-07 09:48] VITALS: BMI 56.9
--- NOTE | 2019-07-19 08:12 | BI_ITS ---
MAMMOGRAPHY - BILATERAL SCREENING REASON FOR EXAM: Female, 49 years old. Routine annual screening examination. PERTINENT HISTORY: Non-contributory. Occasional bilateral nipple tenderness. TECHNIQUE: Digital bilateral breast rere (3D mammographic acquisition) in the CC and MLO projections. 2-D mediolateral oblique (MLO) and craniocaudad (CC) views of both breasts were obtained. CAD: Full Field Digital Mammography with Computer Added Detection was performed. COMPARISON: Comparison is made with prior outside examination dated September 02, 2017. FINDINGS: Breast Composition: The breasts are heterogeneously dense, which may obscure small masses. There are no dominant masses or suspicious calcifications. No other significant abnormalities are identified. There has been no significant change since the prior study. BI/SCREEN MAMM (CAD) W/RERE BILAT IMPRESSION: Stable bilateral screening mammogram. Yearly follow-up mammogram recommended. (A) ASSESSMENT CATEGORY: BIRADS Category 2: Benign. A letter regarding these results will be sent to the patient by the facility within 30 days. Approximately 10% of breast cancers are not detected by mammography. A normal mammogram should not delay biopsy of a clinically suspicious abnormality. [id number] Electronically Signed: Parker Clark, at 9:24 EST , Service support ,
== END | disposition home or self-care (01) ==
LOC: OPBI 08:10
PROVIDERS: Referring Provider Nurse Practitioner Family
DX: Z12.31 Encounter for screening mammogram for malignant neoplasm of breast (principal)
CPT/HCPCS: 77063; 77067

== ENCOUNTER → 2019-11-08 | Outpatient (CLI) | payer BC, SELFPAY ==
[2019-11-08 08:03] VITALS: BMI 56.9
--- NOTE | 2019-11-08 10:13 | CT_ITS ---
STUDY: CTA CHEST REASON FOR EXAM: Female, 49 years old. PE, SOB X 2 WKS, BILAT LEG SWELLING AND PAIN, HX PE RADIATION DOSAGE (If Supplied By Facility): CTDIvol = ( 15.04 ) mGy, DLP = ( 527.98 ) mGycm TECHNIQUE: The examination was performed with the intravenous administration of IV 100mL Isovue-370. Post-processing of the angiographic images was performed, with multiplanar reformation and 3D reconstruction. Individualized dose optimization techniques were used for this CT. COMPARISON: Comparison is made with prior examination dated July 28, 2018. FINDINGS: A tiny intraluminal filling defect is seen in the subsegmental branch of the right upper lobe pulmonary artery. Normal thoracic aorta and visualized great vessels. There is no demonstrated aortic dissection. Normal heart and pericardium. Normal mediastinum. Normal hilar regions. Normal visualized trachea and bronchi. The lungs are well expanded. Normal pulmonary parenchyma. Normal pleura. Normal chest wall structures. Normal osseous structures. Gallstones. Fatty infiltration of the liver. CT/CTA Chest W/WO Contrast IMPRESSION: Tiny intraluminal filling defect in the subsegmental branch of the right upper lobe pulmonary artery. Electronically Signed: Parker Clark, at 10:49 EDT , Service support ,
[2019-11-08 10:22] LABS: Anion Gap 5 (5-15); BUN 21 mg/dL (7-18); BUN/Creat Ratio 18.1 RATIO (10-20); Calcium,Total 9.4 mg/dL (8.5-10.1); Chloride 107 mmol/L (98-107); Creatinine, Serum 1.16 mg/dL (0.55-1.02); EST Glomerular Filtration Rate 52 mL/min (>60); Est Glom Filt Rate - Afr Amer 63 mL/min (>60); Glucose 114 mg/dL (74-106); Potassium 4.4 mmol/L (3.5-5.1); Sodium Level 138 mmol/L (136-145)
[2019-11-08 10:34] LABS: D-Dimer Quantitative (DVT/PE) <= 0.27 FEU/ug/m (0.27-0.49)
== END | disposition home or self-care (01) ==
LOC: PAVLAB 09:54 → CT 10:12
PROVIDERS: Referring Provider Nurse Practitioner Acute Care; Visit Provider Nurse Practitioner Acute Care
DX: R07.9 Chest pain, unspecified (principal); R06.02 Shortness of breath
CPT/HCPCS: 36415; 71275; 80048; 85379; Q9967

== ENCOUNTER → 2019-12-28 | Outpatient (CLI) | payer BC, SELFPAY ==
[2019-11-12 13:02] VITALS: BMI 56.9
[2019-12-28 10:51] LABS: Mucous, Urine 0 SEEN /hpf (<or=2+); Red Blood Cells-Urine 0 SEEN /hpf (0-5)
[2019-12-28 11:55] LABS: Color, Urine Yellow (Yellow); Glucose, Dipstick Normal (Normal); Ketone-Dipstick Negative (Negative); Leukocyte Esterase-Dipstick 25 /ul (Negative); Nitrite-Dipstick Negative (Negative); Occult Blood-Urine Negative /ul (Negative); Protein-Dipstick 15 mg/dl (Negative); Urine Bilirubin Dipstick Negative (Negative); Urine Clarity Clear (Clear); Urine Urobilinogen Normal (Normal)
[2019-12-28 11:59] LABS: Protein, Urine (Random) 13.7 mg/dL (<11.9); Protein:Creat Ratio 79 mg/g CRE (0-200)
[2019-12-28 12:07] LABS: Bacteria 3+ /hpf (None Seen); Squamous Epithelial Cells - UA 0-5 SEEN /hpf (5-10); White Blood Cells 0-5 SEEN /hpf (0-5)
[2019-12-28 12:08] LABS: PTHIN 62.7 pg/mL (18.4-80.1)
[2019-12-28 12:09] LABS: Anion Gap 5 (5-15); BUN 17 mg/dL (7-18); BUN/Creat Ratio 16.3 RATIO (10-20); Calcium,Total 9.4 mg/dL (8.5-10.1); Chloride 106 mmol/L (98-107); Creatinine, Serum 1.04 mg/dL (0.55-1.02); EST Glomerular Filtration Rate 59 mL/min (>60); Est Glom Filt Rate - Afr Amer 72 mL/min (>60); Glucose 106 mg/dL (74-106); Phosphorus 2.6 mg/dL (2.5-4.9); Potassium 4.2 mmol/L (3.5-5.1); Sodium Level 137 mmol/L (136-145)
[2019-12-28 12:12] LABS: Vitamin D,25 Hydroxy 35.5 ng/mL
== END | disposition home or self-care (01) ==
LOC: LAB 10:42
PROVIDERS: Referring Provider Internal Medicine; Visit Provider Internal Medicine
DX: N18.3 Chronic kidney disease, stage 3 (moderate) (principal); E83.52 Hypercalcemia
CPT/HCPCS: 36415; 80048; 81001; 82306; 82570; 83970; 84100; 84156

== ENCOUNTER → 2019-12-31 | Outpatient (CLI) | payer BC, SELFPAY ==
[2019-11-12 13:02] VITALS: BMI 56.9
[2019-12-31 10:12] LABS: 24HR. UA Prot. Total Volume 1250 mL; Urine Protein (24 Hour) < 6.0 mg/dL (<11.9)
[2019-12-31 10:30] LABS: Creatinine, Serum 1.15 mg/dL (0.55-1.02); EST Glomerular Filtration Rate 53 mL/min (>60); Est Glom Filt Rate - Afr Amer 64 mL/min (>60)
[2019-12-31 10:35] LABS: Creat.Clear Total Volume 1250 mL; Creatinine Clearance 74 ml/min (100-200); Creatinine Serum Creat 1.2 mg/dL (0.6-1.0); Creatinine Urine 97.6 mg/dL (NO RANGE EST.); EST Glomerular Filtration Rate 53 mL/min (>60); Est Glom Filt Rate - Afr Amer 64 mL/min (>60)
== END | disposition home or self-care (01) ==
LOC: LAB 09:20 → LABSPEC 09:20
PROVIDERS: Referring Provider Internal Medicine; Visit Provider Internal Medicine
DX: N18.3 Chronic kidney disease, stage 3 (moderate) (principal)
CPT/HCPCS: 81050; 82565; 82575; 84156

== ENCOUNTER → 2020-01-30 09:50 | Outpatient (CLI) | payer BC, SELFPAY ==
[2019-11-12 13:02] VITALS: BMI 56.9
== END ==
PROVIDERS: PCP Nurse Practitioner Family; Referring Provider Nurse Practitioner Acute Care; Visit Provider Nurse Practitioner Acute Care
DX: R06.02 Shortness of breath (principal)
CPT/HCPCS: 87635; 94799; U0003

== ENCOUNTER → 2020-03-10 | Outpatient (CLI) | payer BC, SELFPAY ==
[2019-11-12 13:02] VITALS: BMI 56.9
[2020-02-06 11:50] VITALS: BMI 57.9
--- NOTE | 2020-03-10 12:28 | NEURO_ITS ---
NCS and/or EMG Patient Report Ordering Doctor: Ghazal Staples NP DATE OF SERVICE: 03/10/20 Indication: Approximately 6 months of bilateral upper extremity pain and intermittent numbness in both hands (predominantly digit 2-4). Symptoms are most prominent while attempting to sleep, but fluctuate throughout the day. Pain and sensory disturbance is more prominent in the left upper extremity. Findings: Nerve conduction studies were performed in the right and left upper extremities. The right median motor study recording the abductor pollicis brevis showed a normal amplitude, prolonged distal latency and borderline conduction velocity. The right ulnar motor study recording the abductor digiti minimi showed a normal amplitude, normal distal latency and normal conduction velocity. No conduction block or focal slowing was present across the elbow. The right median sensory response recording digit two showed a reduced amplitude, prolonged latency and slowed conduction velocity. The right ulnar sensory response recording digit five showed a normal amplitude, latency and conduction velocity. The right radial sensory response recording over the extensor snuff box showed a normal amplitude, latency and conduction velocity. The left median motor study recording the abductor pollicis brevis showed a normal amplitude, borderline normal distal latency and borderline conduction velocity. The left ulnar motor study recording the abductor digiti minimi showed a normal amplitude, normal distal latency and normal conduction velocity. No conduction block or focal slowing was present across the elbow. The left median sensory response recording digit two showed a normal amplitude, prolonged latency and slowed conduction velocity. The left ulnar sensory response recording digit five showed a normal amplitude, latency and conduction velocity. The left radial sensory response recording over the extensor snuff box showed a normal amplitude, latency and conduction velocity. Right median-ulnar mixed palmar latencies showed a prolonged median latency compared to the ulnar. Left median-ulnar mixed palmar latencies showed a prolonged median latency compared to the ulnar. Needle EMG of the left upper extremity (patient's more symptomatic side) and right abductor pollicis brevis muscle was performed. The needle examination was limited and cervical paraspinal muscles omitted as the patient was on therapeutic anticoagulation. No denervation was seen in any muscle. In the left upper extremity (deltoid, biceps, triceps, first dorsal interosseous, abductor pollicis brevis), all motor unit morphology, activation and recruitment patterns were normal. The left biceps was attempted, but could not be activated. In the right abductor pollicis brevis, motor units were mildly polyphasic, but otherwise unremarkable. Impression: This is an abnormal study. There is electrophysiologic evidence of median andreina ropathies across the wrist on in both upper extremities (mild to moderate on the right; very mild on the left). The pathophysiology is demyelination with no evidence of ongoing axonal injury to the thenar muscles. These findings would be compatible with the clinical diagnosis of carpal tunnel syndrome. Kalyan Valverde D.O.
== END | disposition home or self-care (01) ==
LOC: PSN 10:15
PROVIDERS: PCP Nurse Practitioner Family
DX: R20.0 Anesthesia of skin (principal)
CPT/HCPCS: 95885; 95886; 95913

== ENCOUNTER → 2020-03-31 | Outpatient (CLI) | payer BC, SELFPAY ==
[2019-11-12 13:02] VITALS: BMI 56.9
[2020-02-06 11:50] VITALS: BMI 57.9
[2020-03-31 08:08] LABS: Mucous, Urine 0 SEEN /hpf (<or=2+); Red Blood Cells-Urine 0 SEEN /hpf (0-5); White Blood Cells 0 SEEN /hpf (0-5)
--- NOTE | 2020-03-31 08:26 | US_ITS ---
STUDY: RENAL ULTRASOUND - COMPLETE REASON FOR EXAM: Female, 50 years old. Stage III chronic kidney disease. TECHNIQUE: Ultrasound evaluation of the kidneys was performed with real-time and static carr-scale imaging. COMPARISON: None. FINDINGS: RIGHT KIDNEY: Normal location of the right kidney, which is probably enlarged in size. The right kidney measures 12.3 cm. There is a normal cortex of the right kidney. The renal cortex measures 1.9 cm. There is no right renal mass or cyst. There are no right renal calculi. There is no right hydronephrosis. DISTAL RIGHT URETER: There is non-visualization of the distal right ureter. There is no demonstrated right ureterovesical junction calculus. There is a visualized right ureteral jet. LEFT KIDNEY: Normal location of the left kidney, which is mildly enlarged in size. The left kidney measures 12.5 cm. There is a normal cortex of the left kidney. The renal cortex measures 1.0 cm. There is no left renal mass or cyst. There are no left renal calculi. There is no left hydronephrosis. DISTAL LEFT URETER: There is non-visualization of the distal left ureter. There is no demonstrated left ureterovesical junction calculus. There is a visualized left ureteral jet. BLADDER: The distended urinary bladder has a volume of 32 ml. There is a normal wall thickness of the distended urinary bladder. There is no demonstrated mass within the urinary bladder. There are no demonstrated bladder calculi. US/Kidney and Bladder IMPRESSION: Normal ultrasound of the kidneys and urinary bladder. Electronically Signed: Marcio Lugo DO at 23:21 EDT Tel [phone], Service support ,
[2020-03-31 08:50] LABS: Protein, Urine (Random) 10.7 mg/dL (<11.9); Protein:Creat Ratio 117 mg/g CRE (0-200)
[2020-03-31 09:05] LABS: Bacteria RARE /hpf (None Seen); Color, Urine Yellow (Yellow); Glucose, Dipstick Normal (Normal); Ketone-Dipstick Negative (Negative); Leukocyte Esterase-Dipstick Negative /ul (Negative); Nitrite-Dipstick Negative (Negative); Occult Blood-Urine Negative /ul (Negative); Protein-Dipstick Negative (Negative); Specific Gravity, Urine 1.015 (1.002-1.030); Squamous Epithelial Cells - UA 0-5 SEEN /hpf (5-10); Urine Bilirubin Dipstick Negative (Negative); Urine Clarity Clear (Clear); Urine Urobilinogen Normal (Normal)
[2020-03-31 09:16] LABS: Anion Gap 7 (5-15); BUN 29 mg/dL (7-18); BUN/Creat Ratio 23.8 RATIO (10-20); Calcium,Total 9.4 mg/dL (8.5-10.1); Chloride 106 mmol/L (98-107); Creatinine, Serum 1.22 mg/dL (0.55-1.02); EST Glomerular Filtration Rate 49 mL/min (>60); Est Glom Filt Rate - Afr Amer 60 mL/min (>60); Glucose 103 mg/dL (74-106); Phosphorus 2.9 mg/dL (2.5-4.9); Potassium 4.3 mmol/L (3.5-5.1); Sodium Level 139 mmol/L (136-145)
[2020-03-31 17:28] LABS: PTHIN 73.7 pg/mL (18.4-80.1)
[2020-03-31 21:08] LABS: Vitamin D,25 Hydroxy 25.8 ng/mL
[2020-04-02 14:09] LABS: PROEL- Albumin 3.7 g/dL (2.9-4.4); PROEL- Alpha-1 Globulin 0.2 g/dL (0.0-0.4); PROEL- Beta Globulin 1.1 g/dL (0.7-1.3); PROEL- Gamma Globulin 1.3 g/dL (0.4-1.8); PROEL- Globulin, Total 3.6 g/dL (2.2-3.9); PROEL- TOTAL PROTEIN 7.3 g/dL (6.0-8.5); PROELU- Albumin, Urine 36.2 % (.); PROELU- Alpha-1-Globulin,Ur 1.7 % (.); PROELU- Alpha-2-Globulin,Ur 9.5 % (.); PROELU- Beta Globulin, Ur 23.3 % (.); PROELU- Gamma Globulin, Ur 29.3 % (.); Total Protein, Ur 6.7 mg/dL (Not Estab.)
== END | disposition home or self-care (01) ==
LOC: US 08:00
PROVIDERS: Referring Provider Internal Medicine; Visit Provider Internal Medicine
DX: N18.30 Chronic kidney disease, stage 3 unspecified (principal); E83.52 Hypercalcemia
CPT/HCPCS: 36415; 76770; 80048; 81001; 82306; 82570; 83970; 84100; 84156; 84165; 84166

== ENCOUNTER → 2020-08-29 10:25 | Outpatient (CLI) | payer OTHER, SELFPAY ==
[2020-08-27 11:26] VITALS: BMI 63.2
[2020-08-29 11:36] LABS: ALB/GLOB Ratio 0.9 RATIO (0.9-2.4); AST(SGOT) 16 U/L (15-37); Alanine Aminotransfer ALT/SGPT 28 U/L (13-56); Albumin, Serum 3.7 g/dL (3.2-5.0); Alkaline Phosphatase 73 U/L (45-117); Anion Gap 7 (5-15); BUN 17 mg/dL (7-18); Calcium,Total 9.7 mg/dL (8.5-10.1); Chloride 102 mmol/L (98-107); Creatinine, Serum 1.06 mg/dL (0.55-1.02); EST Glomerular Filtration Rate 58 mL/min (>60); Est Glom Filt Rate - Afr Amer 70 mL/min (>60); Globulin 3.9 g/dL (2.2-4.2); Glucose 116 mg/dL (74-106); Potassium 4.5 mmol/L (3.5-5.1); Protein, Total 7.6 g/dL (6.4-8.2); Sodium Level 138 mmol/L (136-145); Thyroid Stim Hormone (TSH) 2.14 uIU/mL (0.358-3.74)
[2020-08-30 12:09] LABS: H. Pylori Antibody (IgG) 5.39 (0.00-0.79)
== END ==
DX: I10 Essential (primary) hypertension (principal); E03.9 Hypothyroidism, unspecified; R12 Heartburn
CPT/HCPCS: 36415; 80053; 84443; 86677

== ENCOUNTER → 2020-09-17 09:31 | Outpatient (CLI) | payer OTHER, SELFPAY ==
[2020-08-27 11:26] VITALS: BMI 63.2
[2020-09-17 10:24] LABS: Anion Gap 3 (5-15); BUN 19 mg/dL (7-18); BUN/Creat Ratio 17.8 RATIO (10-20); Calcium,Total 9.5 mg/dL (8.5-10.1); Chloride 104 mmol/L (98-107); Creatinine, Serum 1.07 mg/dL (0.55-1.02); EST Glomerular Filtration Rate 57 mL/min (>60); Est Glom Filt Rate - Afr Amer 69 mL/min (>60); Glucose 114 mg/dL (74-106); Sodium Level 135 mmol/L (136-145)
== END ==
DX: I89.0 Lymphedema, not elsewhere classified (principal)
CPT/HCPCS: 36415; 80048

== ENCOUNTER → 2020-11-17 09:38 | Outpatient (CLI) | payer OTHER, SELFPAY ==
[2020-08-27 11:26] VITALS: BMI 63.2
[2020-11-17 10:37] LABS: ALB/GLOB Ratio 0.8 RATIO (0.9-2.4); AST(SGOT) 33 U/L (15-37); Alanine Aminotransfer ALT/SGPT 48 U/L (13-56); Albumin, Serum 3.4 g/dL (3.2-5.0); Alkaline Phosphatase 92 U/L (45-117); Anion Gap 4 (5-15); BUN 24 mg/dL (7-18); BUN/Creat Ratio 21.2 RATIO (10-20); Calcium,Total 9.4 mg/dL (8.5-10.1); Chloride 104 mmol/L (98-107); Creatinine, Serum 1.13 mg/dL (0.55-1.02); EST Glomerular Filtration Rate 54 mL/min (>60); Est Glom Filt Rate - Afr Amer 65 mL/min (>60); Globulin 4.5 g/dL (2.2-4.2); Glucose 106 mg/dL (74-106); Potassium 4.2 mmol/L (3.5-5.1); Protein, Total 7.9 g/dL (6.4-8.2); Sodium Level 140 mmol/L (136-145)
== END ==
PROVIDERS: Visit Provider Nurse Practitioner Adult Health
DX: I89.0 Lymphedema, not elsewhere classified (principal)
CPT/HCPCS: 36415; 80053

== ENCOUNTER 2020-12-31 10:00 | Outpatient (RCR) | payer OTHER, SELFPAY ==
[2020-08-27 11:26] VITALS: BMI 63.2
--- NOTE | 2020-12-22 10:26 | HP.OTEVAL_ITS ---
Patient's Visit Information MEDHAT ROJO is a 50 year old F, referred to Occupational Therapy by ADALGISA Nguyễn, with a diagnosis of lymphedema. Date of Evaluation: 12/22/20 Occupational Therapist: Shobha Nunez, ELHAM/Swati, CHT - Subjective This 50 year old female was seen for OT eval with dx of lymphedema. Pt states sh e had cellulitis in end of October. Pt states she had difficulty walking and has pain in all joints and burning sensation in her feet the long she is on them. States left knee and hip are painful . Pt states she had difficulty with walking due to pain. pt moved to [place] three years ago and has put on more weight about 100lbs. pt states she notices her feet and ankles are swelling the more she is up and on her feet, and less swollen in the AM. pt states she does have to sit to wash dishes and has set up a table and chairs in her basement so she can do laundry and not have to go up and down stairs multiple times a day. pt would like to become more mobile and decrease her pain. - Pain bilateral legs 4 Pain Intensity Range: 2, 3 - Lymphedema (Circumferential Measure) Mid-foot: right 27cm , left 27cm Ankle: right 35cm, left 35cm Lower calf: right 52cn left 54cm Largest calf: right 69cm, left 67cm Below knee: right 69cm, left 88cm - Lower Limb Functional Index Lower Extremity Functional Score: 9 - Goals Demonstrate a 20% reduction in edema by d/c: Yes Demonstrate adequate knowledge of self-massage by 2nd week: Yes Demonstrate adequate knowledge skin care/prec by 2nd week: Yes Demonstrate adequate knowledge therapeutic exercises by d/c: Yes Select approp compression garment w/donning/care/wear by d/c: Yes Voice need to replace compression garment every 4-6mo by dc: Yes - Rehabilitation General Assessment: pt demo with swelling in bilateral LE. pt has had cellulitis x1. Pt demo a need for OT services 2-3 visits to ed. pt on lymphedema, skin care, lymph stim exercises and self manual lymphedema use of compression garment 20-30mmHg. Today therapist ed. pt on lymphedema, skin care, lymph stim exercises and need for compression garments. pt was given handouts and agree to POC. In regards to pts pain in knees and hips therapist is recommending Physical therapy to address this issue. Rehabilitation Potential: Questionable - Anticipated Interventions Education re Diagnosis, Manual Lymph Drainage, Education re Life-long lymphedema Management, Education re Skin Care and Precautions, Education re Self Massage Techniques, Education re Correct Donning Tech,Care&Wearing Sched Comp Garments, Caregiver Training, Home Program - Visit Plan Frequency: 1x/Week Duration: 3 Weeks TEXT: Thank you for the opportunity to evaluate your patient. For Medicare and Medicare HMO plans, please review the plan of care and approve it. It will need to be FAXED BACK to us at [phone] for Medicare purposes. Please let me know if there are questions or concerns regarding this plan of ca re. Physician Signature: Date:
--- NOTE | 2021-06-16 09:31 | HP.OT.NRP ---
MEDHAT ROJO was seen in my office for initial evaluation on 12/22/20. The following Plan of Care was established for this patient: Initial Frequency: 1x/Week Initial Duration: 3 Weeks Plan: pt to return for ed. on donning as needed Anticipated Interventions: Education re Diagnosis, Manual Lymph Drainage, Education re Life-long lymphedema Management, Education re Skin Care and Precautions, Education re Self Massage Techniques, Education re Correct Donning Tech,Care&Wearing Sched Comp Garments, Caregiver Training, Home Program This patient was last seen in our office 12/31/20. Pertinent comments regarding their Occupational therapy will appear below: pt last seen on 12/31/20 due to time lapse in services pt d/c. At this point I will be discontinuing this patient from occupational therapy. I would be happy to see this patient again in the future if found appropriate by the physician. Thank you! Shobha Nunez, OTR/L, CHT
== END 2020-12-31 19:00 | disposition home or self-care (01) ==
LOC: OT 10:00
PROVIDERS: Referring Provider Nurse Practitioner Adult Health; Visit Provider Nurse Practitioner Adult Health
DX: I89.0 Lymphedema, not elsewhere classified (principal)
CPT/HCPCS: 97110; 97166; 97530

== ENCOUNTER → 2021-03-16 10:45 | Outpatient (CLI) | payer OTHER, SELFPAY ==
[2021-03-16 11:39] LABS: Absolute Neutrophil Count 6.2 X10^3/uL (2.0-7.7); Basophil# 0.06 X10^3/uL; Basophil% 0.6 % (0-1); Eosinophil# 0.36 X10^3/uL; Eosinophils% 3.6 % (0-5); Hemoglobin 12.5 g/dL (12.0-15.0); Lymphocyte % 22.1 % (19-41); Mean Corp Hgb Conc 32.1 g/dL (32-36); Mean Corpuscular Volume 93.5 fL (81-99); Mean Platelet Vol. 9.9 fl (6.2-12.0); Monocyte# 1.05 X10^3/uL; Monocyte% 10.6 % (0-10); NRBC Flagged by Analyzer 0 % (0-5); Neutrophil # 6.24 X10^3/uL (2.7-7.7); Neutrophil % 62.7 % (47-70); Platelet Count 370 K/mm3 (150-450); RBC Distribution Width CV 13.4 % (11.6-14.6); RBC Distribution Width SD 45.6 fl (35.1-43.9); Red Blood Count 4.17 M/mm3 (4.2-5.4)
[2021-03-16 11:55] LABS: Vitamin D,25 Hydroxy 32.8 ng/mL
[2021-03-16 12:09] LABS: ALB/GLOB Ratio 0.7 RATIO (0.9-2.4); AST(SGOT) 28 U/L (15-37); Alanine Aminotransfer ALT/SGPT 47 U/L (13-56); Albumin, Serum 3.5 g/dL (3.2-5.0); Alkaline Phosphatase 93 U/L (45-117); Anion Gap 9 (5-15); BUN 16 mg/dL (7-18); Calcium,Total 9.3 mg/dL (8.5-10.1); Chloride 101 mmol/L (98-107); Cholesterol 206 mg/dL (200); Creatinine, Serum 1.23 mg/dL (0.55-1.02); EST Glomerular Filtration Rate 49 mL/min (>60); Est Glom Filt Rate - Afr Amer 59 mL/min (>60); Globulin 4.9 g/dL (2.2-4.2); Glucose 121 mg/dL (74-106); High Density Lipoprotein 44 mg/dL; Potassium 3.8 mmol/L (3.5-5.1); Protein, Total 8.4 g/dL (6.4-8.2); Sodium Level 138 mmol/L (136-145); Triglycerides 191 mg/dL; Very Low Density Lipoprotein 38 mg/dL (5-40)
== END ==
PROVIDERS: Referring Provider Nurse Practitioner Adult Health; Visit Provider Nurse Practitioner Adult Health
DX: I89.0 Lymphedema, not elsewhere classified (principal); E03.9 Hypothyroidism, unspecified; I10 Essential (primary) hypertension; E55.9 Vitamin D deficiency, unspecified
CPT/HCPCS: 36415; 80053; 80061; 82306; 84443; 85025

== ENCOUNTER → 2021-03-30 10:48 | Outpatient (CLI) | payer OTHER, SELFPAY ==
--- NOTE | 2021-03-30 10:57 | RAD_ITS ---
STUDY: X-RAY - LEFT KNEE REASON FOR EXAM: Female, 51 years old. Left knee pain. TECHNIQUE: 2 view(s) of the knee. COMPARISON: None. FINDINGS: Osteopenia. Moderate to marked medial compartmental arthrosis with osteophyte formation. Mild arthrosis of the lateral compartment with osteophyte formation. Moderate arthrosis of the patellofemoral compartment with osteophyte formation. The soft tissue structures are unremarkable. RAD/Knee 1 or 2 Views IMPRESSION: Osteopenia with tricompartmental arthrosis as described. Electronically Signed: Javon Perez MD at 13:59 EDT , Service support ,
--- NOTE | 2021-03-30 10:57 | RAD_ITS ---
STUDY: X-RAY - RIGHT KNEE REASON FOR EXAM: Female, 51 years old. Right knee pain. TECHNIQUE: 2 view(s) of the knee. COMPARISON: None. FINDINGS: Osteopenia. Moderate arthrosis of the medial compartment with osteophytes. Mild arthrosis of the lateral compartment with osteophytes. Moderate arthrosis of the patellofemoral compartment with osteophyte formation. The soft tissue structures are unremarkable. RAD/Knee 1 or 2 Views IMPRESSION: Osteopenia with tricompartmental arthrosis as described. Electronically Signed: Javon Perez MD at 13:58 EDT , Service support ,
== END ==
PROVIDERS: Referring Provider Nurse Practitioner Adult Health; Visit Provider Nurse Practitioner Adult Health
DX: M25.561 Pain in right knee (principal); M25.562 Pain in left knee
CPT/HCPCS: 73560

== ENCOUNTER → 2021-05-06 09:27 | Outpatient (CLI) | payer OTHER, SELFPAY ==
--- NOTE | 2021-05-06 09:43 | BD_ITS ---
STUDY: DUAL ENERGY X-RAY ABSORPTIOMETRY / DXA REASON FOR EXAM: Female, 51 years old. M85.88 TECHNIQUE: Bone Mineral Density (BMD) measurements of both forearms were obtained. COMPARISON: None. FINDINGS: Right Forearm: g/cm2 (0.617) / T-score (0.7) / Z-score (1.5) Left Forearm: g/cm2 (0.579) / T-score (0.0) / Z-score (0.8) BD/Dexa Bone Density/Append Skel IMPRESSION: The patient is considered normal as outlined below according to World Monster Organization (WHO) criteria with a low fracture risk. Reference Information: The T-score is the number of standard deviations above or below the standard which is normal for young adults at their peak bone mineral density. The World Health Organization (WHO) interprets the T-scores as follows: Above -1 Normal bone density Between -1 and -2.5 Osteopenia Equal to / or below -2.5 Osteoporosis As a practical clinical guideline, osteopenia may be graded as follows: Mild -1 through -1.5 Moderate -1.6 through -2.0 Severe -2.1 through -2.4 The Z-score is the number of standard deviations above or below age-matched controls. A Z-score of less than -1.5 would be considered abnormal. References: 1. NIH Osteoporosis and Related Bone Diseases www osteo.org 2. International Society for Clinical Densitometry www iscd.org 3. National Osteoporosis Foundation www nof.org Electronically Signed: Parker Clark MD at 10:19 EST , Service support ,
== END ==
PROVIDERS: Referring Provider Nurse Practitioner Adult Health; Visit Provider Nurse Practitioner Adult Health
DX: M85.88 Other specified disorders of bone density and structure, other site (principal)
CPT/HCPCS: 77081

== ENCOUNTER 2021-06-08 11:31 | Outpatient (CLI) | payer BC, SELFPAY ==
[2021-06-08 13:20] LABS: Anion Gap 7 (5-15); BUN 18 mg/dL (7-18); BUN/Creat Ratio 17.3 RATIO (10-20); Calcium,Total 9.6 mg/dL (8.5-10.1); Chloride 101 mmol/L (98-107); Creatinine, Serum 1.04 mg/dL (0.55-1.02); EST Glomerular Filtration Rate 59 mL/min (>60); Est Glom Filt Rate - Afr Amer 72 mL/min (>60); Glucose 103 mg/dL (74-106); Potassium 4.1 mmol/L (3.5-5.1); Sodium Level 138 mmol/L (136-145)
== END 2021-06-08 23:59 | disposition short-term general hospital (02) ==
LOC: LAB 11:33
PROVIDERS: Visit Provider Nurse Practitioner Adult Health
DX: I89.0 Lymphedema, not elsewhere classified (principal)
CPT/HCPCS: 36415; 80048

== ENCOUNTER 2021-06-10 10:30 | Outpatient (RCR) | payer BC, OTHER, SELFPAY ==
--- NOTE | 2021-05-11 11:17 | HP.PTEVAL_ITS ---
Patient's Visit Information MEDHAT ROJO is a 51 year old F referred to Physical Therapy by LUCY Oneill with a diagnosis of Left Knee Pain. Date of Evaluation: 05/11/21 Physical Therapist: Leslie Coppola DPT - Visit Plan Frequency: 2x /Week Duration: 4 Weeks Plan: Aquatics- focus on LE and core strength/stabilization, flex and muscular endurance - Subjective Patient reports that she reports that she has pain in the left knee. She also has lymphedema. She had a cortisone injection about a month ago and it helped for about 2 days to a week and then the pain returned. She is also taking Tylenol - and she is taking it every 6-8 hours. Marie Acosta put her on Gabapentin due to restless leg syndrome- it helps but does not take it all the way away. The knee has been bothering her a long time but about the last 6 months its gotten to where she can't get around. 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 The pain is along the medial border and anterior patella. When she bends forwards she can hear bones popping and clicking. Worst: 10/10 Today: 8/10 Agg: being up on it, sitting for to long Best: 5/10 Eases: laying down. Describes the pain as painful- sharp pain. When it pops the pain will shoot. Pain radiates to the metz and into the quad. She reports that she does have swelling in her legs from lyphedema- but she does not have compression garments. Stairs: does have them to get down to do her laundry- single hand rail. VERY Hard but can do them. She had blood clots and the MD told her to try to walk- she has been trying to walk to the mailbox and back- but is very sedentary. She is on disability. They did x-rays but no MRI. Sleep: disturbed- has to sleep on her back. 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 Gait: slow carlos- increased MARY- bilateral ER with toes turned out. Stairs: asc/desc 8 recip with 2 HR- bilateral UE A to pull up stairs- poor control with descent. HR/TR: able- report discomfort with TR. Balance: weight shift but unable to SLS. ROM: 0-190 degrees. Limited by tissue. Strength: Core: poor, Hip: 4+/5 Knee: 4/5 with pain, Ankle: 5/5. Flex: HS: severe, Gastroc: severe - Balance/Special Test Scores Lower Extremity Functional Score: 10 - Goals Goal 1:: Patient will be I with HEP and progression Goal Time Frame: 6-8 Weeks Goal 2:: Patient will ambulate >300 feet without stopping Goal Time Frame: 6-8 Weeks Goal 3:: Patient will asc/desc 8 stairs recip with HR Goal Time Frame: 6-8 Weeks Goal 4:: Patient will report improved by 50% Goal Time Frame: 6-8 Weeks - Rehabilitation Potential Physical Therapy Diagnosis: Patient presents with hypomobility- she has decreased LE and core strength/stabilization, flex, proprioception and muscular endurance leading to poor posture and increased pain with ADL's Rehabilitation Potential: Fair - Anticipated Interventions Patient/Client Instruction: Educate patient on: Benefits of Fitness Program Therapeutic Exercise to Include: Strength training, Power training, Endurance training, Balance training, Coordination, Body mechanics, Postural training, Flexibilty training, Gait and locomotor training, Neuromotor development, In an aquatic setting, Dynamic Lumbar Stabilization, Scapular Strength/Stabilization For the Purpose of:: To improve muscle performance and motor function Thank you for the opportunity to evaluate your patient. For Medicare and Medicare HMO plans, please review the plan of care and approve it. It will need to be FAXED BACK to us at [phone] for Medicare purposes. For Medicare only, by signing this I certify the plan of care. Please let me know if there are questions or concerns regarding this plan of care. Physician Signature: Date:
--- NOTE | 2021-11-19 13:57 | HP.PT.NRP ---
MEDHAT ROJO was seen in my office for initial evaluation on 05/11/21. The following Plan of Care was established for this patient: Initial Frequency: 2x /Week Initial Duration: 4 Weeks Patient/Client Instruction: Educate patient on: Benefits of Fitness Program Therapeutic Exercise to Include: Strength training, Power training, Endurance training, Balance training, Coordination, Body mechanics, Postural training, Flexibilty training, Gait and locomotor training, Neuromotor development, In an aquatic setting, Dynamic Lumbar Stabilization, Scapular Strength/Stabilization For the Purpose of:: To improve muscle performance and motor function This patient was last seen in our office . Pertinent comments regarding their Physical therapy will appear below: Patient has not attended PT in over 30 days- appropriate to be d/c and return to MD for further evaluation as needed. At this point I will be discontinuing this patient from physical therapy. I would be happy to see this patient again in the future if found appropriate by the physician. Thank you! Leslie Coppola, [employer] Balance/Gait/Functional tests - Balance/Special Test Scores Lower Extremity Functional Score: 10
== END 2021-06-10 19:00 | disposition home or self-care (01) ==
LOC: PT 10:30
PROVIDERS: Referring Provider Physician Assistant Surgical; Visit Provider Physician Assistant Surgical
DX: M17.11 Unilateral primary osteoarthritis, right knee (principal); M17.12 Unilateral primary osteoarthritis, left knee
CPT/HCPCS: 97113; 97162

== ENCOUNTER → 2021-09-25 | Outpatient (CLI) | payer BC, SELFPAY ==
--- NOTE | 2021-09-25 07:46 | BI_ITS ---
MAMMOGRAPHY - BILATERAL SCREENING 3-D TOMOSYNTHESIS REASON FOR EXAM: Female, 51 years old. SCREENING PERTINENT HISTORY: No significant family history. TECHNIQUE: 2-D mammograms and 3-D Tomosynthesis of the breast (s) were performed. CAD was performed. COMPARISON: 07/19/2019 FINDINGS: The breast composition is heterogeneously dense that can obscure small breast masses. Scattered benign calcifications are seen. No dense spiculated masses or suspicious microcalcifications are identified. No architectural distortion is identified. There is no skin thickening or retraction. There has been no significant change since the prior study. BI/SCRN MAMM (CAD)W/RERE BILAT IMPRESSION: No mammographic signs of malignancy. Routine yearly mammograms recommended. ASSESSMENT CATEGORY: BIRADS Category 1: Negative. A letter regarding these results will be sent to the patient by the facility within 30 days. FOLLOW UP RECOMMENDATION: Yearly follow up mammogram recommended. (A) Approximately 10% of breast cancers are not detected by mammography. A normal mammogram should not delay biopsy of a clinically suspicious abnormality. Electronically Signed: Unruly Guerrier MD at 9:13 EDT ,
== END | disposition home or self-care (01) ==
LOC: OPBI 07:45
PROVIDERS: Referring Provider Nurse Practitioner Adult Health; Visit Provider Nurse Practitioner Adult Health
DX: Z12.31 Encounter for screening mammogram for malignant neoplasm of breast (principal)
CPT/HCPCS: 77063; 77067

== ENCOUNTER → 2021-10-01 | Outpatient (CLI) | payer BC, SELFPAY ==
--- NOTE | 2021-10-01 10:58 | EKG12_ITS ---
Test Reason : CHEST PAIN Blood Pressure : / mmHG Vent. Rate : 093 BPM Atrial Rate : 093 BPM P-R Int : 162 ms QRS Dur : 076 ms QT Int : 348 ms P-R-T Axes : 056 007 019 degrees QTc Int : 432 ms Normal sinus rhythm Normal ECG Confirmed by KACEY HAILE, KARLA ([id number]), video editor MEDHAT CAMARILLO ([id number]) on 10/02/2021 10:31:26 AM Referred By: Laura Funez Confirmed By:KARLA ERAZO MD
== END | disposition home or self-care (01) ==
LOC: PSN 10:57
PROVIDERS: Referring Provider Nurse Practitioner Adult Health; Visit Provider Nurse Practitioner Adult Health
DX: R07.9 Chest pain, unspecified (principal)
CPT/HCPCS: 93005

== ENCOUNTER → 2021-10-20 | Outpatient (CLI) | payer BC, SELFPAY ==
[2021-10-20 12:49] LABS: Hemoglobin A1c 6.1 % (3.8-5.6)
[2021-10-20 13:00] LABS: Insulin 31.6 mU/L (2.6-37.6)
[2021-10-20 13:07] LABS: Follicle Stimulating Hormone 11.7 mIU/mL; Luteinizing Hormone 6.9 mIU/mL; Prolactin 12.3 ng/mL; Thyroid Stim Hormone (TSH) 2.97 uIU/mL (0.358-3.74)
[2021-10-21 14:07] LABS: DHEA Sulfate 46.3 ug/dL (41.2-243.7)
[2021-10-28 10:34] LABS: 17-Hydroxyprogesterone 12 ng/dL (.)
== END | disposition home or self-care (01) ==
LOC: LAB 11:06
PROVIDERS: Referring Provider Nurse Practitioner Adult Health; Visit Provider Nurse Practitioner Adult Health
DX: L68.0 Hirsutism (principal)
CPT/HCPCS: 36415; 82627; 83001; 83002; 83036; 83498; 83525; 84146; 84443; 82626

== ENCOUNTER → 2022-01-07 | Outpatient (CLI) | payer BC, SELFPAY ==
[2022-01-07 12:29] LABS: Erythrocyte Sedimentation Rate 52 mm/hr (0-30)
[2022-01-07 12:31] LABS: Absolute Lymphocyte Count 2.27 X10^3/uL (0.83-4.51); Basophil# 0.05 X10^3/uL; Basophil% 0.4 % (0-1); Eosinophil# 0.31 X10^3/uL; Eosinophils% 2.4 % (0-5); Hemoglobin 12.9 g/dL (12.0-15.0); Lymphocyte # 2.27 X10^3/ul (0.83-4.51); Lymphocyte % 17.2 % (19-41); Mean Corp Hgb Conc 32.3 g/dL (32-36); Mean Platelet Vol. 9.9 fl (6.2-12.0); Monocyte# 1.44 X10^3/uL; Monocyte% 10.9 % (0-10); NRBC Flagged by Analyzer 0 % (0-5); Neutrophil # 8.98 X10^3/uL (2.7-7.7); Platelet Count 398 K/mm3 (150-450); RBC Distribution Width CV 13.6 % (11.6-14.6); RBC Distribution Width SD 46.6 fl (35.1-43.9); White Blood Count 13.2 K/mm3 (4.4-11.0)
[2022-01-07 13:08] LABS: Vitamin B12 809 pg/mL (211-911); Vitamin D,25 Hydroxy 53.2 ng/mL
[2022-01-07 13:59] LABS: ALB/GLOB Ratio 0.7 RATIO (0.9-2.4); AST(SGOT) 26 U/L (15-37); Alanine Aminotransfer ALT/SGPT 39 U/L (13-56); Albumin, Serum 3.3 g/dL (3.2-5.0); Alkaline Phosphatase 84 U/L (45-117); Anion Gap 9 (5-15); BUN 23 mg/dL (7-18); BUN/Creat Ratio 18.5 RATIO (10-20); CPK Total, Creatine Kinase 48 U/L (26-192); Calcium,Total 9.8 mg/dL (8.5-10.1); Chloride 102 mmol/L (98-107); Creatinine, Serum 1.24 mg/dL (0.55-1.02); EST Glomerular Filtration Rate 48 mL/min (>60); Est Glom Filt Rate - Afr Amer 58 mL/min (>60); Globulin 4.8 g/dL (2.2-4.2); Glucose 129 mg/dL (74-106); Iron 43 ug/dL (50-170); Iron Binding Capacity,Total 359 ug/dL (250-450); Magnesium 1.2 mg/dL (1.6-2.6); Potassium 4.3 mmol/L (3.5-5.1); Protein, Total 8.1 g/dL (6.4-8.2); Sodium Level 139 mmol/L (136-145); Thyroid Stim Hormone (TSH) 4.75 uIU/mL (0.358-3.74)
== END | disposition home or self-care (01) ==
LOC: LAB 11:56
PROVIDERS: Visit Provider Nurse Practitioner Adult Health
DX: R51.9 Headache, unspecified (principal); M79.669 Pain in unspecified lower leg
CPT/HCPCS: 36415; 80053; 82306; 82550; 82607; 82746; 83540; 83550; 83735; 84443; 85025; 85652

== ENCOUNTER → 2022-01-19 | Outpatient (CLI) | payer BC, SELFPAY | END | disposition home or self-care (01) | LOC: LABSPEC 11:10 | PROVIDERS: Referring Provider Nurse Practitioner Adult Health; Visit Provider Nurse Practitioner Adult Health | DX: E61.1 Iron deficiency (principal) | CPT/HCPCS: 82274 ==

== ENCOUNTER → 2022-08-30 | Outpatient (CLI) | payer BC, SELFPAY ==
[2022-08-30 11:02] LABS: Hematocrit 42.3 % (37-47); Hemoglobin 13.3 g/dL (12.0-15.0); Mean Corp Hgb Conc 31.4 g/dL (32-36); Mean Corpuscular Volume 98.6 fL (81-99); Mean Platelet Vol. 10.2 fl (6.2-12.0); Platelet Count 310 K/mm3 (150-450); RBC Distribution Width CV 13.2 % (11.6-14.6); RBC Distribution Width SD 47.8 fl (35.1-43.9); Red Blood Count 4.29 M/mm3 (4.2-5.4); White Blood Count 11.1 K/mm3 (4.4-11.0)
[2022-08-30 11:33] LABS: ALB/GLOB Ratio 0.8 RATIO (0.9-2.4); AST(SGOT) 38 U/L (15-37); Alanine Aminotransfer ALT/SGPT 53 U/L (13-56); Albumin, Serum 3.6 g/dL (3.2-5.0); Alkaline Phosphatase 79 U/L (45-117); Anion Gap 4 (5-15); BUN 18 mg/dL (7-18); BUN/Creat Ratio 14.5 RATIO (10-20); Calcium,Total 9.6 mg/dL (8.5-10.1); Chloride 104 mmol/L (98-107); Creatinine, Serum 1.24 mg/dL (0.55-1.02); EST Glomerular Filtration Rate 48 mL/min (>60); Est Glom Filt Rate - Afr Amer 58 mL/min (>60); Globulin 4.4 g/dL (2.2-4.2); Glucose 138 mg/dL (74-106); Potassium 4.4 mmol/L (3.5-5.1); Sodium Level 138 mmol/L (136-145); T4 Free Direct 1.12 ng/dL (0.76-1.46); Thyroid Stim Hormone (TSH) 6.21 uIU/mL (0.358-3.74)
== END | disposition home or self-care (01) ==
PROVIDERS: Visit Provider Nurse Practitioner Family
DX: I10 Essential (primary) hypertension (principal); E03.9 Hypothyroidism, unspecified
CPT/HCPCS: 36415; 80053; 84439; 84443; 85027

== ENCOUNTER 2022-09-02 08:34 | Day surgery (SDC) | payer BC, SELFPAY ==
[2022-09-02] VITALS (7 sets, daily range): BP systolic 140–157; BP diastolic 74–84; PULSE 79–88; RESP 16–106; TEMP 36.3–36.5; O2SAT 95–98; BMI 70.4
[2022-09-02] MEDS: Lactated Ringers 1,000 ML 15 ML IV (09:37)
--- NOTE | 2022-09-02 10:16 | HP.PCM_ITS ---
History and Physical Date of Admission: 09/02/22 [facility] [address] [place] [address] OFFICE VISIT Date of Service:? 07/01/22 MR#: [id number] Acct: [id number] Name:MEDHAT SIMONS Rep #: [id number] : 1970 ? ? Provider: ?ADALGISA Bains Age/Sex:? 52/F ? ? Location: [facility] [place].[facility] Status: Signed Intake Intake Visit Reasons:?Consult Chief Complaint: malabsorption, indigestion Allergies No Known Allergies Allergy (Verified 04/23/22 12:23) Medications aspirin 81 mg chewable tablet 81 mg PO DAILY@0800 HEART 07/21/18 [History Confirmed 04/23/22] buspirone 10 mg tablet 10 mg PO BID ANXIETY 07/21/18 [History Confirmed 04/23/22] metoprolol succinate 50 mg tablet,extended release 24 hr 50 mg PO DAILY blood pressure 07/21/18 [History Confirmed 04/23/22] levothyroxine 137 mcg tablet 137 mcg PO DAILY 11/12/19 [History Confirmed 04/23/22] venlafaxine 150 mg tablet,extended release 24 hr 150 mg PO BID DEPRESSION 11/12/19 [History Confirmed 04/23/22] amlodipine 2.5 mg tablet 5 mg PO DAILY 08/07/20 [History Confirmed 04/23/22] ascorbate calcium (vitamin C) 500 mg tablet 500 mg PO DAILY 08/27/20 [History Confirmed 04/23/22] magnesium 200 mg tablet 400 mg PO DAILY 08/27/20 [History Confirmed 04/23/22] biotin 1 mg capsule 1 mg PO DAILY 02/05/21 [History Confirmed 04/23/22] solifenacin 10 mg tablet 10 mg PO DAILY 02/05/21 [History Confirmed 04/23/22] rivaroxaban 10 mg tablet 10 mg PO DAILY #30 tabs 12/24/21 [Rx Confirmed 04/23/22] B-complex with vitamin C 1 cap PO DAILY 01/21/22 [History Confirmed 04/23/22] ferrous sulfate 325 mg (65 mg iron) tablet (FeroSul) 325 mg PO BID 01/21/22 [History Confirmed 01/21/22] furosemide 20 mg tablet 20 mg PO DAILY 01/21/22 [History Confirmed 04/23/22] gabapentin 100 mg capsule See Rx Instructions PO .COMPLEX 01/21/22 [History Confirmed 04/23/22] vibegron 75 mg tablet (Gemtesa) 75 mg PO DAILY 01/21/22 [History Confirmed 01/21/22] black cohosh 20 mg tablet 20 mg PO DAILY 04/23/22 [History Confirmed 04/23/22] desvenlafaxine succinate 25 mg tablet,extended release 24 hr 25 mg PO DAILY 04/23/22 [History Confirmed 04/23/22] omeprazole 40 mg capsule,delayed release 40 mg PO BID 07/01/22 [History Confirmed 07/01/22] PFSH Medical History?(Updated 07/01/22 @ 09:12 by Smitha Bains [employer]SEM[employer], [employer]) DARLENE (acute kidney injury) Anxiety and depression Chest pain Essential hypertension Frequent headaches History of pulmonary embolus (PE) Homozygous MTHFR mutation [id number] Hypomagnesemia Hypothyroidism Iron deficiency anemia Morbid obesity KINGSLEY (obstructive sleep apnea) Pulmonary embolism Pulmonary hypertension PVD (peripheral vascular disease) Surgical History? H/O: hysterectomy Hx of tubal ligation Family History? Mother?? Diabetes Hypertension Kidney disease Heart disease ?? ? AVRFather?? Hypertension Myocardial infarction COPD (chronic obstructive pulmonary disease) Seizures Sleep apneaSister?? ,? Age 56 Myocardial infarction Social History? Smoking Status:? Former smoker alcohol intake:? never substance use type:? does not use caffeine:? Yes Type: carbonated beverages, coffee and tea Number of servings: 3 HPI HPI Chief Complaint: malabsorption, indigestion Details: MEDHAT ROJO, is a 52 F who presents to the office today to establish with GI for malabsorption as well as c/o indigestion. Pt has chronic hypomagnesemia and chronic iron deficiency anemia, neither responding as expected to supplementation. Pt c/o indigestion despite taking omeprazole 40 mg BID. Doesn't tolerate red sauces especially, gets nausea, heartburn and acid reflux. Has regurgitated bile acid. This has gotten worse over time, unable to say when it began. No upper abd pain. No dysphagia. She gets lower abd discomfort, especially if constipated, bowels are better now w/ increased fruits and vegetables. She and her are trying to eat better. Occas sees bright red blood if she had to strain to have BM. No diarrhea. No melena. No prior EGD or colonoscopy 01/2022 labs: negative stool occult blood, hgb 12.9, vit B12 809, vit D 53, creat 1.24, mag 1.2, TSH 4.75, iron 43 Comorbidities include morbid obesity, HTN, pulmonary hypertention, PEs, KINGSLEY, hypothyroidism, PVD, anxiety, depression, gallstones on chest CT in 2019 ROS Const Constitutional: Positive for fatigue and frequent falls; No fever(s), headache(s) or weight change ENT ENT: No headache(s) or difficulty swallowing Cardio Cardiology: Positive for leg pain with exertion Gastro GI: Positive for bloating, constipation, diarrhea, heartburn and vomiting; No abdominal pain, change in bowel habits, difficulty swallowing, Vomiting blood/hematemesis, Blood in stool or nausea/dyspepsia Musc Musculoskeletal: Positive for joint pain, back pain, joint swelling, muscle cramps, numbness, tingling, Arthritis, restless legs, leg pain at night and leg pain with exertion; No abnormal gait, muscle weakness, stiffness or sciatica Skin Skin: No dry skin, lesions, itchy eyes or rash Neuro Neurology: Positive for frequent falls, numbness, tingling and restless legs; No abnormal gait, dizziness, headache(s), tremor(s), Increased tone in limbs, paralysis or seizures Psych Psychiatric: Positive for anxiety, Positive for depression, No paranoia, No Behavioral Problems, No Compulsive Behavior, Positive for hyperactivity, No inattentiveness, No obsessions/compulsions, No Temper Tantrums and No suicidal ideation Endo Endocrine: Positive for fatigue; No weight change Aller/Imm Allergy/Immunologic: No itchy eyes Ponce/Lymp Hematologic/Lymphatic: Positive for easy bleeding and easy bruising Exam Const General: cooperative, comfortable and no acute distress Nutritional Appearance: obese Orientation: alert, awake and oriented x3 HENMT Head: normal to inspection Eyes Sclera: sclerae normal Resp Other: winded from walking to exam room from waiting room Psych Mood: euthymic mood Quality Reporting Tobacco Screening ([facility] 138) Smoking Status: Former smoker Assessment and Plan Assessment and Plan (1) Iron deficiency anemia: ?Status:?Chronic ?Plan: 52 yr old female with possible malabsorption of magnesium and iron, and acid reflux. Printed order for celiac disease profile to get when she has labs drawn in 2 wks for Marie Garcia f/u EGD and colonoscopy to eval for esophagitis, Collins's, hiatal hernia, H pylori, gastritis, bile acid reflux, celiac disease, IBD; office f/u 2 wks later Continue bid dosing of omeprazole 40 mg (2) Acid reflux: ?Status:?Acute ?Plan: as above ? ? ? Orders: Orders Celiac Disease Profile Today D50.9 - Iron deficiency anemia, unspecified ? I have examined the patient and the H&P has been reviewed. There are no clinical changes since date of exam.
--- NOTE | 2022-09-02 10:30 | COLBX_PTH ---
PATIENT: MEDHAT ROJO LOC: EN U#:[id number] AGE/SX: 52/F ROOM: RE09/02/[address]: Dr. Donell Mckeon DO : 1970 BED: DIS: 09/02/2022 SPEC #: [id number] RECD: 09/02/22 12:55 STATUS: MUNA REQ #: [id number] JANKI: 09/02/22 10:[address]: Donell Mckeon DEPT: SURGICAL PATHOLOGY RECD BY: Becki Mata ENTERED: 09/02/22 13:29 SP TYPE: COLON BX OTHR DR: Marie [facility] Tissues: A - Duodenum, NOS B - Ileum, NOS C - COLON BIOPSY Procedures: Surgery Specimen Level IV HEADER OPERATION: Colonoscopy, EGD ([facility] [place] biopsy PRE-OP DIAGNOSIS: Iron deficiency anemia, acid reflux TISSUE SUBMITTED: A ? Duodenum biopsy, B ? Terminal ileum biopsy, C ? Random colonic biopsy MICROSCOPIC DIAGNOSIS A. Duodenum, biopsy: Mild nonspecific chronic inflammation. B. Terminal ileum, biopsy: No pathologic change. C. Colon, random biopsy: No pathologic change. AM:ragini 09/03/2022 MICROSCOPIC DESCRIPTION Slides are reviewed. GROSS DESCRIPTION A - Received in fixative is one container labeled with the patient's name and designated duodenum biopsy. The specimen consists of multiple irregular fragments of light tapia soft tissue that in aggregate measure 1.2 x 0.2 x 0.1 cm. The specimen is totally submitted in one cassette. B - Received in fixative is one container labeled with the patient's name and designated terminal ileum biopsy. The specimen consists of one irregular fragment of light tapia soft tissue that measures 0.3 x 0.3 x 0.1 cm. The specimen is totally submitted in one cassette. C - Received in fixative is one container labeled with the patient's name and designated random colonic biopsy. The specimen consists of multiple irregular fragments of light tapia soft tissue that in aggregate measure 1.0 x 0.5 x 0.1 cm. The specimen is totally submitted in one cassette. / ULI:ragini 09/02/2022 TC:3 CPT: 77264 x3
--- NOTE | 2022-09-02 11:33 | OP.CCLET_ITS ---
09/02/2022 Marie Garcia [facility] Re : Upper GI endoscopy procedure for Darya Shahid Dear [facility] This procedure was performed on August. My impressions and recommendations are as follows: Impressions : - Grade I esophageal varices. - Bile gastritis. - Multiple non-bleeding duodenal ulcers with no stigmata of bleeding. Biopsied. Recommendations : - Discharge patient to home. - Resume previous diet. - Continue present medications. - Await pathology results. My findings are described in the full procedure note, which is enclosed. If I can be of further assistance, please feel free to contact me at . Sincerely, Donell Mckeon, 09/02/2022 11:32:55 AM This report has been signed electronically.
--- NOTE | 2022-09-02 11:33 | OP.EGD_ITS ---
Patient Name: Darya Shahid Procedure Date: 09/02/2022 10:45 AM Date of : 1970 Age: 52 Procedure: Upper GI endoscopy Indications: Epigastric abdominal pain, Dyspepsia Providers: Donell Mckeon DO Medicines: Monitored Anesthesia Care Patient Profile: This is a 52 year old female. Refer to note in patient chart for documentation of history and physical. Patient has symptoms of chronic abdominal cramping and chronic epigastric abdominal pain. Complications: No immediate complications. Procedure: Pre-Anesthesia Assessment: - Prior to the procedure, a History and Physical was performed, and patient medications and allergies were reviewed. The risks and benefits of the procedure and the sedation options and risks were discussed with the patient. All questions were answered and informed consent was obtained. Patient identification and proposed procedure were verified by the physician. Mental Status Examination: alert and oriented. Respiratory Examination: clear to auscultation. CV Examination: normal. Prophylactic Antibiotics: The patient does not require prophylactic antibiotics. Prior Anticoagulants: The patient has taken no previous anticoagulant or antiplatelet agents. ASA Grade Assessment: III - A patient with severe systemic disease. After reviewing the risks and benefits, the patient was deemed in satisfactory condition to undergo the procedure. The anesthesia plan was to use monitored anesthesia care (MAC). Immediately prior to administration of medications, the patient was re-assessed for adequacy to receive sedatives. The heart rate, respiratory rate, oxygen saturations, blood pressure, adequacy of pulmonary ventilation, and response to care were monitored throughout the procedure. The physical status of the patient was re-assessed after the procedure. After obtaining informed consent, the endoscope was passed under direct vision. Throughout the procedure, the patient's blood pressure, pulse, and oxygen saturations were monitored continuously. The Colonoscope was introduced through the mouth, and advanced to the second part of duodenum. The upper GI endoscopy was accomplished without difficulty. The patient tolerated the procedure well. Scope In: 10:58:44 AM Scope Out: 11:04:11 AM Total Procedure Duration Time 0 hours 5 minutes 27 seconds Findings: Grade I varices were found in the lower third of the esophagus. They were 5 mm in largest diameter. Localized mild inflammation characterized by congestion (edema) was found in the gastric body. Four non-bleeding superficial duodenal ulcers with no stigmata of bleeding were found in the duodenal bulb and in the first portion of the duodenum. The largest lesion was 2 mm in largest dimension. Biopsies were taken with a cold forceps for histology. Verification of patient identification for the specimen was done. Estimated blood loss was minimal. Impression: - Grade I esophageal varices. - Bile gastritis. - Multiple non-bleeding duodenal ulcers with no stigmata of bleeding. Biopsied. Recommendation: - Discharge patient to home. - Resume previous diet. - Continue present medications. - Await pathology results. Procedure Code(s): --- Professional --- 67538, Esophagogastroduodenoscopy, flexible, transoral; with biopsy, single or multiple CPT copyright 2017 [employer]. All rights reserved. The codes documented in this report are preliminary and upon dredge boat engineer review may be revised to meet current compliance requirements. Donell Mckeon DO 09/02/2022 11:32:55 AM This report has been signed electronically. Number of Addenda: 0 Note Initiated On: 09/02/2022 10:45 AM
--- NOTE | 2022-09-02 11:36 | OP.COLON_ITS ---
Patient Name: Darya Shahid Procedure Date: 09/02/2022 11:04 AM Date of : 1970 Age: 52 Procedure: Colonoscopy Indications: Screening for colorectal malignant neoplasm Providers: Donell Mckeon DO Medicines: Monitored Anesthesia Care Patient Profile: This is a 52 year old female. Refer to note in patient chart for documentation of history and physical. Patient has symptoms of chronic abdominal cramping and chronic epigastric abdominal pain. Last Colonoscopy: none. The patient's first colonoscopy is today. Complications: No immediate complications. Procedure: Pre-Anesthesia Assessment: - Prior to the procedure, a History and Physical was performed, and patient medications and allergies were reviewed. The risks and benefits of the procedure and the sedation options and risks were discussed with the patient. All questions were answered and informed consent was obtained. Patient identification and proposed procedure were verified by the physician. Mental Status Examination: alert and oriented. Respiratory Examination: clear to auscultation. CV Examination: normal. Prophylactic Antibiotics: The patient does not require prophylactic antibiotics. Prior Anticoagulants: The patient has taken no previous anticoagulant or antiplatelet agents. ASA Grade Assessment: III - A patient with severe systemic disease. After reviewing the risks and benefits, the patient was deemed in satisfactory condition to undergo the procedure. The anesthesia plan was to use monitored anesthesia care (MAC). Immediately prior to administration of medications, the patient was re-assessed for adequacy to receive sedatives. The heart rate, respiratory rate, oxygen saturations, blood pressure, adequacy of pulmonary ventilation, and response to care were monitored throughout the procedure. The physical status of the patient was re-assessed after the procedure. After I obtained informed consent, the scope was passed under direct vision. Throughout the procedure, the patient's blood pressure, pulse, and oxygen saturations were monitored continuously. The Colonoscope was introduced through the anus and advanced to the terminal ileum. The colonoscopy was performed without difficulty. The patient tolerated the procedure well. The quality of the bowel preparation was adequate. Scope In: 11:07:12 AM Scope Withdrawal Time 0 hours 7 minutes 51 seconds Scope Out: 11:22:07 AM Total Procedure Duration Time 0 hours 14 minutes 55 seconds Findings: The perianal and digital rectal examinations were normal. A few small-mouthed diverticula were found in the recto-sigmoid colon and sigmoid colon. The exam was otherwise normal throughout the examined colon. An area of mildly congested mucosa was found in the sigmoid colon, in the ascending colon and in the cecum. Biopsies were taken with a cold forceps for histology. Verification of patient identification for the specimen was done. Estimated blood loss was minimal. The terminal ileum appeared normal. Biopsies were taken with a cold forceps for histology. Verification of patient identification for the specimen was done. Estimated blood loss was minimal. Impression: - Diverticulosis in the recto-sigmoid colon and in the sigmoid colon. - Congested mucosa in the sigmoid colon, in the ascending colon and in the cecum. Biopsied. - The examined portion of the ileum was normal. Biopsied. Recommendation: - Discharge patient to home. - Resume previous diet. - Continue present medications. - Await pathology results. - Repeat colonoscopy in 5 years for surveillance. Procedure Code(s): --- Professional --- 49631, Colonoscopy, flexible; with biopsy, single or multiple CPT copyright 2017 [employer]. All rights reserved. The codes documented in this report are preliminary and upon pre coder review may be revised to meet current compliance requirements. Donell Mckeon DO 09/02/2022 11:35:34 AM This report has been signed electronically. Number of Addenda: 0 Note Initiated On: 09/02/2022 11:04 AM
--- NOTE | 2022-09-02 11:36 | OP.CCLET_ITS ---
09/02/2022 Marie Garcia [facility] Re : [facility] This procedure was performed on August. My impressions and recommendations are as follows: Impressions : - Diverticulosis in the recto-sigmoid colon and in the sigmoid colon. - Congested mucosa in the sigmoid colon, in the ascending colon and in the cecum. Biopsied. - The examined portion of the ileum was normal. Biopsied. Recommendations : - Discharge patient to home. - Resume previous diet. - Continue present medications. - Await pathology results. - Repeat colonoscopy in 5 years for surveillance. My findings are described in the full procedure note, which is enclosed. If I can be of further assistance, please feel free to contact me at . Sincerely, Donell Mckeon, 09/02/2022 11:35:34 AM This report has been signed electronically.
== END 2022-09-02 12:21 | disposition home or self-care (01) ==
LOC: EN 08:36 → AC 08:38
PROVIDERS: Visit Provider Internal Medicine Gastroenterology
PROC: 0DJD8ZZ Inspection of Lower Intestinal Tract, Via Natural or Artificial Opening Endoscopic (ICD-10-PCS; CPT 45378; principal; 2022-09-02 10:25)
DX: Z12.11 Encounter for screening for malignant neoplasm of colon (principal); I85.00 Esophageal varices without bleeding; E66.01 Morbid (severe) obesity due to excess calories; K21.9 Gastro-esophageal reflux disease without esophagitis; K26.9 Duodenal ulcer, unspecified as acute or chronic, without hemorrhage or perforation; K57.30 Diverticulosis of large intestine without perforation or abscess without bleeding; I10 Essential (primary) hypertension; Z87.891 Personal history of nicotine dependence; D50.9 Iron deficiency anemia, unspecified; E83.42 Hypomagnesemia; K29.70 Gastritis, unspecified, without bleeding; E03.9 Hypothyroidism, unspecified; K29.80 Duodenitis without bleeding; R73.03 Prediabetes
CPT/HCPCS: 43239; 45380; 88305; J7120; J2405

== ENCOUNTER → 2022-09-15 | Outpatient (CLI) | payer BC, SELFPAY ==
[2022-09-15 09:12] LABS: International Normalized Ratio 1.1; Prothrombin Time (Protime)PT. 13.9 SECONDS (11.7-14.9)
[2022-09-15 09:15] LABS: Erythrocyte Sedimentation Rate 41 mm/hr (0-30)
[2022-09-15 09:16] LABS: Absolute Lymphocyte Count 2.35 X10^3/uL (0.83-4.51); Absolute Neutrophil Count 7.1 X10^3/uL (2.0-7.7); Basophil# 0.07 X10^3/uL; Basophil% 0.6 % (0-1); Eosinophil# 0.49 X10^3/uL; Eosinophils% 4.3 % (0-5); Hemoglobin 13.4 g/dL (12.0-15.0); Lymphocyte # 2.35 X10^3/ul (0.83-4.51); Lymphocyte % 20.4 % (19-41); Mean Corp Hgb Conc 31.9 g/dL (32-36); Mean Corpuscular Hgb 31.3 pg (27.0-32.0); Mean Corpuscular Volume 98.1 fL (81-99); Mean Platelet Vol. 10.1 fl (6.2-12.0); Monocyte# 1.39 X10^3/uL; Monocyte% 12.1 % (0-10); NRBC Flagged by Analyzer 0 % (0-5); Neutrophil % 61.7 % (47-70); Platelet Count 324 K/mm3 (150-450); RBC Distribution Width CV 13.3 % (11.6-14.6); RBC Distribution Width SD 47.8 fl (35.1-43.9); Red Blood Count 4.28 M/mm3 (4.2-5.4); White Blood Count 11.5 K/mm3 (4.4-11.0)
[2022-09-15 09:25] LABS: ALB/GLOB Ratio 0.8 RATIO (0.9-2.4); AST(SGOT) 33 U/L (15-37); Alanine Aminotransfer ALT/SGPT 50 U/L (13-56); Albumin, Serum 3.6 g/dL (3.2-5.0); Alkaline Phosphatase 83 U/L (45-117); Anion Gap 4 (5-15); BUN 17 mg/dL (7-18); BUN/Creat Ratio 15.3 RATIO (10-20); CRP 9.31 mg/L (0.0-3.0); Calcium,Total 9.7 mg/dL (8.5-10.1); Chloride 104 mmol/L (98-107); Creatinine, Serum 1.11 mg/dL (0.55-1.02); EST Glomerular Filtration Rate 55 mL/min (>60); Est Glom Filt Rate - Afr Amer 66 mL/min (>60); Ferritin 131 ng/mL (8-252); Globulin 4.4 g/dL (2.2-4.2); Glucose 135 mg/dL (74-106); LDH 190 U/L (84-246); Potassium 4.1 mmol/L (3.5-5.1); Sodium Level 136 mmol/L (136-145)
[2022-09-15 10:25] LABS: HIV - WCH Non-Reactive (Nonreactive)
[2022-09-16 14:09] LABS: Anti-Centromere B Ab <0.2 AI (0.0-0.9); Anti-Chromatin <0.2 AI (0.0-0.9); Anti-Jo <0.2 AI (0.0-0.9); Anti-Scleroderma-70 AB <0.2 AI (0.0-0.9); RNP Ab 0.2 AI (0.0-0.9); SJOGREN'S Anti-SS-A test < 0.2 AI (0.0-0.9); SJOGREN'S Anti-SS-B test < 0.2 AI (0.0-0.9); Smith Ab <0.2 AI (0.0-0.9)
[2022-09-16 18:52] LABS: Anti-Mitochondrial AB <20.0 Units (0.0-20.0); Anti-dsDNA Ab 2 IU/mL (0-9)
[2022-09-20 09:07] LABS: Angiotensin Convert Enzyme 54 U/L (14-82); Ceruloplasmin 30.9 mg/dL (19.0-39.0); Cytoplasmic Ab (C-ANCA) <1:20 titer (Neg:<1:20); Endomysial Antibody IgA Negative (Negative); HEPATITIS B SURFACE AG Negative (Negative); Hep C Antibodies Non Reactive (Non Reactive); Hepatitis A IgM Antibody Negative (Negative); Hepatitis B Core AB IgM Negative (Negative); Immunoglobulin A 350 mg/dL (87-352)
[2022-09-20 15:57] LABS: AFP, Tumor Marker 1.9 ng/mL (0.0-9.2); Anti-Smooth Muscle ABS 6 Units (0-19); Copper, Serum or Plasma 136 ug/dL (80-158); Haptoglobin 272 mg/dL (33-346); Perinuclear Ab (P-ANCA) <1:20 titer (Neg:<1:20); t-Transglutaminase IgA <2 U/mL (0-3)
== END | disposition home or self-care (01) ==
LOC: LAB 08:26
PROVIDERS: Referring Provider Nurse Practitioner Adult Health; Visit Provider Nurse Practitioner Adult Health
DX: I85.00 Esophageal varices without bleeding (principal)
CPT/HCPCS: 36415; 80053; 80074; 82105; 82140; 82164; 82390; 82525; 82728; 82784; 83010; 83036; 83516; 83615; 85025; 85610; 85652; 86140; 86225; 86235; 86255; 86256; 86703

== ENCOUNTER → 2022-09-23 | Outpatient (CLI) | payer BC, SELFPAY ==
[2022-09-23 09:06] LABS: D-Dimer Quantitative (DVT/PE) < 0.27 FEU/ug/m (0.27-0.49)
== END | disposition home or self-care (01) ==
LOC: LAB 08:25
PROVIDERS: Referring Provider Physician Assistant Medical; Visit Provider Physician Assistant Medical
DX: R07.9 Chest pain, unspecified (principal)
CPT/HCPCS: 36415; 85379

== ENCOUNTER → 2022-09-27 | Outpatient (CLI) | payer BC, SELFPAY ==
--- NOTE | 2022-09-27 08:14 | US_ITS ---
STUDY: ABDOMINAL ULTRASOUND - ELASTOGRAPHY REASON FOR VISIT: Female, 52 years old. Esophageal varices. TECHNIQUE: Liver stiffness measurements were obtained on a Yerdle RS 85 ultrasound machine using a CA 1-7 probe following the SRU guidelines. 3 measurements were obtained using a 2-D-SWE method. TheIQR/M was 20 % suggesting a quality data set. TECHNICAL QUALITY: Limited. Examination limited due to obesity. COMPARISON: None. FINDINGS: Liver: Hepatomegaly and diffuse fatty infiltration of the liver. Median liver stiffness measured 9 kPa. Abdomen: There is no demonstrated mass lesion. US/Elastography Parenchyma/Organ IMPRESSION: Liver stiffness measures 9 kPa compatible with F2-F3 (Mild to moderate liver fibrosis) Metavir score. Electronically Signed: Parker Clark MD at 15:30 EDT ,
--- NOTE | 2022-09-27 08:14 | BI_ITS ---
MAMMOGRAPHY - BILATERAL SCREENING REASON FOR EXAM: Female, 52 years old. Routine annual screening examination. PERTINENT HISTORY: Non-contributory. Occasional bilateral nipple tenderness. TECHNIQUE: Digital bilateral breast rere (3D mammographic acquisition) in the CC and MLO projections. 2-D mediolateral oblique (MLO) and craniocaudad (CC) views of both breasts were obtained. CAD: Full Field Digital Mammography with Computer Added Detection was performed. COMPARISON: Comparison is made with prior examination dated September 25, 2021 and July 19, 2019. FINDINGS: Breast Composition: The breasts are heterogeneously dense, which may obscure small masses. There are no dominant masses or suspicious calcifications. Stable benign-appearing bilateral axillary nodes. No other significant abnormalities are identified. There has been no significant change since the prior study. BI/SCRN MAMM (CAD)W/RERE BILAT IMPRESSION: Stable bilateral screening mammogram. Yearly follow-up mammogram recommended. (A) ASSESSMENT CATEGORY: BIRADS Category 2: Benign. A letter regarding these results will be sent to the patient by the facility within 30 days. Approximately 10% of breast cancers are not detected by mammography. A normal mammogram should not delay biopsy of a clinically suspicious abnormality. [id number] Electronically Signed: Parker Clark MD at 10:11 EDT ,
--- NOTE | 2022-09-27 08:14 | US_ITS ---
STUDY: ABDOMINAL ULTRASOUND - RIGHT UPPER QUADRANT REASON FOR VISIT: Female, 52 years old esophageal varices TECHNIQUE: Ultrasound evaluation of the right upper quadrant was performed with real-time and static cai-scale imaging. TECHNICAL QUALITY: Limited. Examination limited due to obesity. COMPARISON: None. FINDINGS: Liver: The liver is enlarged and measures 20 cm. There is increased echogenicity consistent with fatty infiltration. The bile ducts are within normal limits. There is hepatic color flow. The direction of portal flow is hepatopetal. There is no demonstrated mass lesion. Gallbladder: Normal distended gallbladder. The gallbladder wall measures 2.8 mm. There is a negative sonographic Nicholson''s sign. There is no pericholecystic fluid. There are multiple echogenic structures within the gallbladder, consistent with multiple gallstones. Common Bile Duct (C.B.D.): The common bile duct measures 5 mm. Pancreas: There is nonvisualization of the pancreas due to overlying bowel gas. Right Kidney: Normal size of the right kidney. The right kidney measures 11.1 cm x 6.1 cm x 5.9 cm. Normal renal cortex. The right cortex measures 2.2 cm. There is no demonstrated renal mass or cyst. There is no right hydronephrosis. US/Abdomen Limited IMPRESSION: Hepatomegaly and diffuse fatty infiltration of the liver. Electronically Signed: Parker Clark MD at 15:28 EDT ,
--- NOTE | 2022-09-27 09:32 | CT_ITS ---
INDICATION: esophageal varices, hx PE 2 years ago, still takes blood thinners, chronic SOB EXAMINATION: CTA CHEST, ABDOMEN AND PELVIS WITH CONTRAST - TECHNIQUE: A CTA of the chest, abdomen, and pelvis is obtained with sagittal and coronal reconstructed MIP views. Three-dimensional surface rendered sequence of the thoracic and abdominal aorta was obtained. A radiation dose optimization technique was used for this scan. mL of Isovue-370. Oral contrast: None. COMPARISON: None. FINDINGS: CT CHEST: THORACIC AORTA: No atheromatous disease, no aneurysmal changes or dissection. ABDOMINAL AORTA: No aneurysm or dissection. No significant atheromatous disease. The iliac arteries are unremarkable. LUNGS: The lungs are well-expanded without acute or chronic changes. No effusions or pneumothorax. MEDIASTINUM: The thyroid gland is normal. No mediastinal or hilar adenopathy. HEART: Heart is normal size. No pericardial effusion. Calcified coronary arteries. CT ABDOMEN AND PELVIS: LIVER: Hepatomegaly. Diffuse fatty infiltration of the liver. GALLBLADDER: Multiple gallstones are seen within the gallbladder. SPLEEN: Normal. PANCREAS: No masses or inflammation. ADRENAL GLANDS: Normal. KIDNEYS AND URETERS: The kidneys both enhance appropriately. There are normal size and shape. No hydronephrosis or nephrolithiasis. No renal masses or cysts. STOMACH: Normal. SMALL BOWEL: No abnormal distention of the small bowel. MESENTERY: No mesenteric inflammation. No ascites. COLON: No significant diverticulosis, masses or inflammation. The colon otherwise is normal. There is a large fatty ileocecal valve. APPENDIX: The appendix is not visualized. IVC: Normal. RETROPERITONEUM: No retroperitoneal lymphadenopathy. PELVIC STRUCTURES: Normal bladder. Status post hysterectomy. SOFT TISSUES ABDOMEN: The anterior abdominal wall is normal. SOFT TISSUE CHEST: The extrathoracic soft tissues are normal. BONES: Mild degree of degenerative changes. CT/CTA Chst, Abd, Pel W and/or WO IMPRESSION: Normal contrast-enhanced CT of the chest. Hepatomegaly and diffuse fatty infiltration of the liver. Electronically Signed: Parker Clark MD at 11:07 EDT ,
== END | disposition home or self-care (01) ==
PROVIDERS: Referring Provider Nurse Practitioner Women's Health; Visit Provider Nurse Practitioner Women's Health
DX: Z12.31 Encounter for screening mammogram for malignant neoplasm of breast (principal); I85.00 Esophageal varices without bleeding; Z86.711 Personal history of pulmonary embolism
CPT/HCPCS: 71275; 74174; 76705; 76981; 77063; 77067; Q9967; A4216

== ENCOUNTER → 2022-10-14 | Outpatient (CLI) | payer BC, SELFPAY ==
--- NOTE | 2022-10-14 08:41 | ECHOD_ITS ---
Reason For Study: SOB Procedure This was a 2D Doppler, Color Flow transthoracic echocardiogram. The study was technically difficult. Exam performed in department. Left Ventricle Normal LV size. Left ventricular systolic function is normal. The estimated ejection fraction is 55 %. Stage 1 diastolic dysfunction. No regional wall motion abnormalities noted. Right Ventricle Normal RV size. Normal systolic function. Atria Normal left atrium. Normal right atrium. Mitral Valve Normal mitral valve. Tricuspid Valve Normal tricuspid valve. Aortic Valve The aortic valve is not well visualized in the short axis view. Pulmonic Valve The pulmonic valve is not well visualized. Great Vessels Normal aortic root. The pulmonary artery is normal size. Normal inferior vena cava. Pericardium/Pleural No pericardial effusion. Medication 22 gauge I.V. with prn adaptor inserted into right arm. Diluted definity 2.5ml given slow IV push to enhance endocardial definition. Performed a rapid injection of agitated mix of 9 cc saline and 1cc air to assess for atrial septal defect. MMode/2D Measurements & Calculations LVIDd: 4.5 cm IVSd: 1.3 cm Ao root diam: 3.1 cm LVIDs: 2.7 cm LVPWd: 0.86 cm RVDd: 3.6 cm FS: 40.0 % LAV(MOD-bp): 54.1 ml LVAd ap4: 32.5 cm2 LVAd ap2: 37.3 cm2 LAV(MOD-bp) Indexed: 18.8 ml/m2 LVLd ap4: 8.0 cm LVLd ap2: 9.0 cm LAV(MOD-sp2): 44.1 ml EDV(MOD-sp4): 104.5 ml EDV(MOD-sp2): 129.2 ml LAV(MOD-sp4): 59.9 ml EDV(sp4-el): 111.3 ml EDV(sp2-el): 131.1 ml LVAs ap4: 19.7 cm2 LVAs ap2: 18.9 cm2 LVLs ap4: 6.7 cm LVLs ap2: 6.7 cm ESV(MOD-sp4): 47.1 ml ESV(MOD-sp2): 44.5 ml ESV(sp4-el): 48.9 ml ESV(sp2-el): 45.4 ml EF(MOD-sp4): 54.9 % EF(MOD-sp2): 65.5 % EF(sp4-el): 56.0 % SV(MOD-sp4): 57.4 ml SV(MOD-sp2): 84.7 ml SV(sp4-el): 62.3 ml LA A4 area: 20.7 cm2 LA dimension(2D): 3.8 cm RA A4 area: 13.9 cm2 TAPSE: 2.2 cm Time Measurements MV dec time: 0.19 sec Doppler Measurements & Calculations MV E max nacho: 73.1 cm/sec Lat Peak E' Nacho: 13.4 cm/sec Med Peak E' Nacho: 6.7 cm/sec MV A max nacho: 82.3 cm/sec E/E' lat: 5.5 E/E' med: 10.9 MV E/A: 0.89 Ao V2 max: 173.6 cm/sec LV V1 max: 124.7 cm/sec MV dec slope: 391.5 cm/sec2 Ao max P.1 mmHg LV V1 max P.2 mmHg Ao V2 mean: 123.7 cm/sec LV V1 mean P.6 mmHg Ao mean P.9 mmHg LV V1 mean: 88.5 cm/sec Ao V2 VTI: 35.8 cm LV V1 VTI: 23.6 cm AV (velocity ratio): 0.66 PA V2 max: 98.2 cm/sec ECHO/Echo Complete W/ Contrast Interpretation Summary Normal LV size. Left ventricular systolic function is normal. The estimated ejection fraction is 55 %. Stage 1 diastolic dysfunction. Contrast injection was performed. Ordering Physician: Shobha Shaikh/King López Referring Physician: Marie Garcia [facility] Performed By: Susan Owusu RDCS
== END | disposition home or self-care (01) ==
LOC: CVS 08:40
PROVIDERS: Referring Provider Physician Assistant Medical; Visit Provider Physician Assistant Medical
DX: R06.02 Shortness of breath (principal); I27.20 Pulmonary hypertension, unspecified
CPT/HCPCS: 93306; Q9957; A4216; C8929

== ENCOUNTER → 2022-10-19 | Outpatient (CLI) | payer BC, SELFPAY ==
[2022-10-19 14:37] LABS: Thyroid Stim Hormone (TSH) 4.57 uIU/mL (0.358-3.74)
== END | disposition home or self-care (01) ==
LOC: LAB 11:51
DX: E03.9 Hypothyroidism, unspecified (principal); E66.01 Morbid (severe) obesity due to excess calories; I10 Essential (primary) hypertension
CPT/HCPCS: 36415; 83036; 84439; 84443

== ENCOUNTER 2023-01-06 09:40 | Outpatient (RCR) | payer BC, SELFPAY ==
--- NOTE | 2023-01-10 14:17 | HP.PTEVAL ---
Patient's Visit Information Visit Information Visit Information: MEDHAT ROJO is a 52 year old F referred to Physical Therapy by ADALGISA Duke with a diagnosis of debility secondary to obesity. Date of Evaluation: 01/06/23 Physical Therapist: Octaviano Curry DPT Visit Plan Frequency: 1x/Week Duration: 1 Week Plan: pt. has marked difficulty with B knee ROM, weakness and general fatigue resulting in decreased ability to complete basic mobility. Due to limited stability and B knee pain resulting in decreased tolerance to walking community level distances and she lacks the safety to ambulate household distances without an AD. I would suggest she has a manual WC for community level distances and a rollator for household distances to increase safety and increased independence. Subjective Subjective: Pt. is here today for her initial evaluation with diagnosis of debility due to weight and B knees giving out on her. Pt. reports having increased weight over the past few years. She was diagnosed with B knee OA and was told that she really needs to have them replaced, but is unable to proceed due to her weight. Pt. reports only being able to ambulate short distance and has a very hard time walking in the community and has to hold onto her significant other for support. She reports she likes to get out, but avoids doing so due to fear of her legs giving out on her. She is hopeful to get a walker and a wheelchair to allow for increased independence in home and community, but also allow for increased safety. She likes to attend thrift stores, but reports not being able to get from car to store and not being able to walk in store due to B knee pain and instability. Pain B knee: Pain Intensity (Out of 10): 4 Pain Intensity Range: 3 and 6 Objective Objective: POSTURE: Pt. is morbidly obese. Pt. has marked B knee genu valgum. Pt. uses significant other to stand for stability. She is able to stand without, but looks for cevallos or balance aide. PALPATION: Pt. has general tenderness throughout BLEs. NEURO: Pt. has normal sensation in BLEs. Pt is able to rise on toes, but difficulty to do so. She needs balance assistance to complete. ROM: Pt. has limited B knee ROM. R knee: 0-5-86deg. L knee 0-5-81deg. Pt. marked stiffness and pain limiting further ROM. MMT: RLE: ankle 5-/5 throughout; knee: ext 4/5, flexion 4/5; hip: flexion 3/5, abd 3/5. LLE: ankle 5-/5 throughout; knee: ext 4/5, flexion 4/5; hip: flexion 3/5, abd 3/5. Pt. has poor core strength. GAIT: pt. ambulated without AD this date, but with marked lateral deviation, flexed posture, frequent standing rest periods due to pain and fatigue. She held onto significant other for stability and/or cevallos when present for stability. Pt. very hesitant to let go of these ADs due to fear of her knees giving out. Pt. was able to ambulated 74' and 1x85'. pt. had to stop secondary to pain and fatigue. STAIRS: unable to complete secondary to pain. Balance/Special Test Scores Lower Extremity Functional Score: 9 TUG Test Time Seconds: 57.1 30 Second Chair Rise Test Seconds: 4 Goals Goal 1:: Pt. to be evaluated for need of rollator for safe ambulation Goal Time Frame: 1 Week Goal 2:: Pt. to be evaluated with need for use of WC for community mobility. Rehabilitation Potential Physical Therapy Diagnosis: Pt. has signs and symptoms consistent with debility secondary to obesity and B knee OA. She has marked B knee loss of motion, increased pain, decreased endurance, but also decreased safety and I with all mobility. Rehabilitation Potential: Fair Anticipated Interventions Patient/Client Instruction: Educate patient on: Condition, Plan of Care, Risk Factors and Benefits of Fitness Program For the Purpose of:: To facilitate caregiver knowledge, To improve self management, To prevent re-injury, To improve ability to perform tasks related to life management and To improve tolerance to ADL's Text: Thank you for the opportunity to evaluate your patient. For Medicare and Medicare HMO plans, please review the plan of care and approve it. It will need to be FAXED BACK to us at [phone] for Medicare purposes. For Medicare only, by signing this I certify the plan of care. Please let me know if there are questions or concerns regarding this plan of care. Physician Signature: Date:
== END 2023-01-06 19:00 | disposition home or self-care (01) ==
LOC: PT 09:40
PROVIDERS: Referring Provider Nurse Practitioner Family; Visit Provider Nurse Practitioner Family
DX: R53.81 Other malaise (principal); E66.01 Morbid (severe) obesity due to excess calories
CPT/HCPCS: 97161

== ENCOUNTER → 2023-01-27 | Outpatient (CLI) | payer BC, SELFPAY ==
[2023-01-27 11:25] LABS: Absolute Lymphocyte Count 2.25 X10^3/uL (0.83-4.51); Absolute Neutrophil Count 8.3 X10^3/uL (2.0-7.7); Basophil# 0.05 X10^3/uL; Basophil% 0.4 % (0-1); Eosinophil# 0.49 X10^3/uL; Eosinophils% 3.9 % (0-5); Hemoglobin 13.6 g/dL (12.0-15.0); Lymphocyte # 2.25 X10^3/ul (0.83-4.51); Lymphocyte % 17.9 % (19-41); Mean Corp Hgb Conc 32.4 g/dL (32-36); Mean Corpuscular Hgb 31.6 pg (27.0-32.0); Mean Corpuscular Volume 97.7 fL (81-99); Monocyte# 1.26 X10^3/uL; NRBC Flagged by Analyzer 0 % (0-5); Neutrophil # 8.34 X10^3/uL (2.7-7.7); Neutrophil % 66.6 % (47-70); Platelet Count 318 K/mm3 (150-450); RBC Distribution Width CV 13.2 % (11.6-14.6); RBC Distribution Width SD 46.9 fl (35.1-43.9); White Blood Count 12.5 K/mm3 (4.4-11.0)
[2023-01-27 11:51] LABS: Hemoglobin A1c 6.3 % (3.8-5.6)
[2023-01-27 11:57] LABS: ALB/GLOB Ratio 0.7 RATIO (0.9-2.4); AST(SGOT) 35 U/L (15-37); Alanine Aminotransfer ALT/SGPT 52 U/L (13-56); Albumin, Serum 3.3 g/dL (3.2-5.0); Alkaline Phosphatase 76 U/L (45-117); Anion Gap 9 (5-15); BUN 20 mg/dL (7-18); BUN/Creat Ratio 17.9 RATIO (10-20); Calcium,Total 9.9 mg/dL (8.5-10.1); Chloride 101 mmol/L (98-107); Creatinine, Serum 1.12 mg/dL (0.55-1.02); EST Glomerular Filtration Rate 54 mL/min (>60); Est Glom Filt Rate - Afr Amer 65 mL/min (>60); Globulin 4.7 g/dL (2.2-4.2); Glucose 131 mg/dL (74-106); Potassium 4.4 mmol/L (3.5-5.1); Sodium Level 137 mmol/L (136-145); T4 Free Direct 1.08 ng/dL (0.76-1.46); Thyroid Stim Hormone (TSH) 9.22 uIU/mL (0.358-3.74)
[2023-02-01 07:06] LABS: Iron 76 ug/dL (50-170); Iron Binding Capacity,Total 288 ug/dL (250-450); PERCENT IRON SATURATION 26.4 % (15.0-55.0)
== END | disposition home or self-care (01) ==
LOC: LAB 10:31
PROVIDERS: Referring Provider Nurse Practitioner Family; Visit Provider Nurse Practitioner Family
DX: I10 Essential (primary) hypertension (principal); E03.9 Hypothyroidism, unspecified; R73.03 Prediabetes; D50.9 Iron deficiency anemia, unspecified
CPT/HCPCS: 36415; 80053; 83036; 83540; 83550; 84439; 84443; 85025

== ENCOUNTER → 2023-03-17 | Outpatient (CLI) | payer BC, SELFPAY ==
[2023-03-17 13:15] LABS: T4 Free Direct 1.19 ng/dL (0.76-1.46); Thyroid Stim Hormone (TSH) 4.42 uIU/mL (0.358-3.74)
== END | disposition home or self-care (01) ==
LOC: LAB 10:58
DX: E03.9 Hypothyroidism, unspecified (principal)
CPT/HCPCS: 36415; 84439; 84443

== ENCOUNTER 2023-04-13 16:17 | Emergency (ER) | payer BC, SELFPAY ==
[2023-04-13 16:20] VITALS: BP 140/91; PULSE 97; RESP 18; TEMP 36.4; O2SAT 100
--- NOTE | 2023-04-13 16:32 | EKG12_ITS ---
Test Reason : SOB Blood Pressure : / mmHG Vent. Rate : 096 BPM Atrial Rate : 096 BPM P-R Int : 170 ms QRS Dur : 084 ms QT Int : 336 ms P-R-T Axes : 046 013 030 degrees QTc Int : 424 ms Normal sinus rhythm Normal ECG Confirmed by NILAM HAILE, RANDELL ([id number]), dictionary editor MEDHAT CAMARILLO ([id number]) on 04/18/2023 10:35:32 AM Referred By: Confirmed By:MICHELLE DEMARCO MD
--- NOTE | 2023-04-13 16:50 | RAD_ITS ---
INDICATION: sob EXAMINATION/TECHNIQUE: X-RAY - XR Chest 1 View COMPARISON: None. FINDINGS: The lungs are clear. The cardiomediastinal silhouette is unremarkable. No pleural effusion or pneumothorax. No acute osseous abnormalities. RAD/Chest 1 View (Portable) IMPRESSION: No acute radiographic abnormalities. Electronically Signed: Kalyan Ruvalcaba MD at 18:42 EST ,
--- NOTE | 2023-04-13 17:20 | ED.VIS.DYS ---
HPI History of Present Illness Chief Complaint: Shortness of Breath Detail of Chief Complaint: Shortness of breath and intermittent chest pain Informant: patient Narrative Narrative: Patient presents to the emergency department with complaint of shortness of breath. Patient complains of exertional dyspnea for over a week. She has had some intermittent chest discomfort and sometimes comes on at rest. She describes a tightness in her chest. Denies nausea vomiting associated with it. Patient was seen by primary care physician today for concern that she may have a urinary tract infection and she was referred to the emergency department. Patient has history of PE and is on Xarelto which she has been taking regularly. She denies recent travel or surgery. She had a fall going up some steps about a month ago and bumped her leg and had a hematoma but sounds like that resolved. Patient states that she just does not feel well. She denies fever or cough or recent illness otherwise. 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 Hypomagnesemia Hypothyroidism Incontinence Iron deficiency anemia Morbid obesity KINGSLEY (obstructive sleep apnea) Pulmonary embolism Pulmonary hypertension PVD (peripheral vascular disease) Restless legs Shortness of breath on exertion Sleep apnea Thyroid disease Wears glasses Home Medications aspirin 81 mg chewable tablet 81 mg PO DAILY@0800 HEART 07/21/18 [History Last Taken 08/29/22] buspirone 10 mg tablet 10 mg PO BID ANXIETY 07/21/18 [History Last Taken 09/01/22] metoprolol succinate 50 mg tablet,extended release 24 hr 50 mg PO DAILY blood pressure 07/21/18 [History Last Taken 09/01/22] levothyroxine 137 mcg tablet 137 mcg PO DAILY 11/12/19 [History Last Taken 09/01/22] venlafaxine 150 mg tablet,extended release 24 hr 150 mg PO BID DEPRESSION 11/12/19 [History Last Taken 09/01/22] ascorbate calcium (vitamin C) 500 mg tablet 600 mg PO DAILY 08/27/20 [History Last Taken 09/01/22] magnesium 200 mg tablet 400 mg PO DAILY 08/27/20 [History Last Taken 09/01/22] biotin 1 mg capsule 1 mg PO DAILY 02/05/21 [History Last Taken 09/01/22] solifenacin 10 mg tablet 10 mg PO DAILY 02/05/21 [History Last Taken 09/01/22] B-complex with vitamin C 1 cap PO DAILY 01/21/22 [History Last Taken 09/01/22] ferrous sulfate 325 mg (65 mg iron) tablet (FeroSul) 325 mg PO DAILY 01/21/22 [History Last Taken 08/29/22] furosemide 20 mg tablet 20 mg PO DAILY 01/21/22 [History Last Taken 09/01/22] vibegron 75 mg tablet (Gemtesa) 75 mg PO DAILY 01/21/22 [History Last Taken 09/01/22] glucosamine sulfate 500 mg tablet (Glucosamine) 500 mg PO DAILY 09/01/22 [History Last Taken 09/01/22] tumeric 100 mg-yehuda 150 mg-olive 50 mg-oreg 150 mg-caprylate capsule 1 cap PO DAILY 09/01/22 [History Last Taken 09/01/22] colestipol 1 gram tablet 1 g PO DAILY #30 tabs 09/15/22 [Rx Last Taken Unknown] amlodipine 10 mg tablet 10 mg PO DAILY 11/26/22 [History Last Taken Unknown] gabapentin 300 mg capsule 600 mg PO TID 11/26/22 [History Last Taken Unknown] omeprazole 40 mg capsule,delayed release 40 mg PO BID 11/26/22 [History Last Taken Unknown] rivaroxaban 10 mg tablet 10 mg PO DAILY #90 tabs 04/11/23 [Rx Last Taken Unknown] Allergy/AdvReac Type Severity Reaction Status Date / Time No Known Allergies Allergy Verified 04/13/23 16:20 Family History Mother Diabetes Hypertension Kidney disease Heart disease AVR Father Hypertension Myocardial infarction COPD (chronic obstructive pulmonary disease) Seizures Sleep apnea Sister , Age 56 Myocardial infarction Other History of pulmonary embolus (PE) Surgical History H/O: hysterectomy Hx of tubal ligation Social History Smoking Status: Former smoker alcohol intake: never substance use type: does not use caffeine: Yes Type: carbonated beverages, coffee and tea Number of servings: 3 ROS ROS ED Review of Systems ROS Unobtainable: other Constitutional Constitutional ED: Reports lethargy; Denies chills, fever(s), sweats or weight loss Eyes Eyes: Denies blurry vision, change in vision or diplopia ENT ENT ED: Denies rhinorrhea or sore throat Cardiovascular Cardiovascular: Reports chest pain and racing heartbeat; Denies orthopnea Respiratory/Chest Respiratory/Chest: Reports dyspnea and dyspnea on exertion; Denies cough, orthopnea or sputum Gastrointestinal Gastrointestinal: Denies abdominal pain, diarrhea, nausea or vomiting Genitourinary Genitourinary ED: Reports dysuria and urinary frequency; Denies hematuria Musculoskeletal Musculoskeletal: Denies arthralgias, back pain, myalgias or neck pain Integumentary Denies abscess, Abrasions or rash Neurologic Neurologic: Denies headache(s) or weakness Psychiatric Psychiatric: Denies anxiety, depression or suicidal thoughts Endocrine Endocrinology: Denies polydipsia, polyphagia or polyuria Hematologic/Lymphatic Hematologic/Lymphatic: Denies easy bleeding, easy bruising or lymphadenopathy Allergic/Immunologic Allergic/Immunologic ED: Denies mouth swelling, tongue swelling or urticaria EXAM Physical Exam Const Vital Signs: 04/13/23 16:20 04/13/23 17:26 04/13/23 17:26 Temperature 97.6 F L Temperature Source Temporal Pulse Rate 97 Respiratory Rate 18 Respiratory Effort Blood Pressure 140/91 H Blood Pressure Mean 107 Pulse Ox 100 96 Oxygen Delivery Method Room Air Room Air Room Air 04/13/23 17:26 04/13/23 17:29 04/13/23 18:16 Temperature Temperature Source Pulse Rate 98 98 Respiratory Rate 16 16 Respiratory Effort Normal Blood Pressure 122/103 H 162/88 H Blood Pressure Mean 109 112 Pulse Ox 99 99 Oxygen Delivery Method Room Air Room Air Positive well nourished and well developed General Appearance ED: well developed and NAD HEENT Reports TM's clear and moist mucous membranes normocephalic and atraumatic; Negative for trauma or tenderness Tympanic Membrane ED: Yes TM's clear Eyes PERRL and EOMs intact bilaterally General Eye ED: Negative for pale conjunctiva or scleral icterus Neck no lymphadenopathy, supple and no JVD General: Negative for tenderness Chest Wall inspection of chest normal and palpation of chest normal Chest: Negative for tenderness Resp normal respiratory effort and clear to auscultation bilaterally Effort and Inspection: Negative for respiratory distress or pain with movement Auscultation: Negative for rhonchi, wheezes or diminished lung sounds Cardio regular rate, regular rhythm, S1 normal heart sound, S2 normal heart sound and no murmurs Peripheral Pulses: pulses 2+ throughout GI normal to inspection, nondistended, normoactive bowel sounds, soft to palpation, non-tender, non-distended and no masses Back/Spine no CVA tenderness and no thoracic nor lumbar tenderness Extremity normal to inspection General Extremety ED: Negative for edema General Extremity: Negative for edema Neuro oriented x3, CN's II-XII intact bilaterally, no sensory deficits noted and gait normal Sensorium / Orientation: awake, alert, oriented to person, oriented to place and oriented to time Motor Exam: strength 5/5 throughout and strength abnormal Psych mental status grossly normal Skin no rashes or lesions noted and no wounds MDM MDM MDM Narrative Medical decision making narrative: Patient presents with intermittent chest discomfort and shortness of breath with exertion. Patient morbidly obese and overweight. Patient on Eliquis for history of PE and has been taking her medications regularly. On arrival she is not tachycardic and not hypoxic. In the differential would be acute coronary syndrome versus deconditioning versus infectious etiology and less likely PE with failure of the Xarelto. IV line established on arrival. EKG obtained shows sinus rhythm with ventricular rate of 96 bpm with no acute ST segment changes. CBC with differential showed a white count of 12.9 with hemoglobin 13.7 and platelet count of 335. Chemistries unremarkable. BUN was 17 and creatinine 1.16. Urinalysis was normal. Chest x-ray showed nothing acute. Patient had testing for COVID and influenza and were negative. This point etiology of her symptoms unclear. Suspicion low for PE and acute coronary syndrome. Recommended follow-up with primary care physician within next 3 to 5 days. Patient tells me she last had a stress test in 2019 and it was unremarkable. Lab Data Attestation: I reviewed the patient's lab results. Labs: Laboratory Results - last 24 hr 04/13/23 04/13/23 17:25 18:07 WBC 12.9 H RBC 4.44 Hgb 13.7 Hct 43.3 MCV 97.5 MCH 30.9 MCHC 31.6 L RDW Std Deviation 46.7 H RDW Coeff of Juan 13.1 Plt Count 335 MPV 9.8 Immature Gran % (Auto) 0.900 Neut % (Auto) 64.1 Lymph % (Auto) 20.5 Blaine % (Auto) 10.3 H Eos % (Auto) 3.7 Baso % (Auto) 0.5 Absolute Neuts (auto) 8.3 H Absolute Lymphs (auto) 2.64 Nucleated RBC % 0 Sodium 138 Potassium 4.2 Chloride 102 Carbon Dioxide 28.0 Anion Gap 8 BUN 17 Creatinine 1.16 H Estim Creat Clear Calc 53.91 Est GFR (MDRD) Af Amer 63 Est GFR (MDRD) Non-Af 52 L BUN/Creatinine Ratio 14.7 Glucose 112 H Calcium 9.9 Troponin I High Sens 6 Urine Color Yellow Urine Clarity Clear Urine pH 6.0 Ur Specific [place] 1.015 Urine Protein 15 H Urine Glucose (UA) Normal Urine Ketones Negative Urine Occult Blood Negative Urine Nitrite Negative Urine Bilirubin Negative Urine Urobilinogen Normal Ur Leukocyte Esterase 25 H Urine RBC 0 SEEN Urine WBC 0-5 SEEN Ur Squamous Epith Cells 0-5 SEEN Urine Bacteria 1+ Urine Mucus 0 SEEN Radiography Diagnostic Testing: Clinical Impression(s) from Imaging Studies Chest X-Ray 04/13/23 16:50 IMPRESSION: No acute radiographic abnormalities. Electronically Signed: Kalyan Ruvalcaba MD at 18:42 EST Reading Location ID and State: [facility] / [place] Tel , Service support , 1 view chest x-ray obtained interpreted by myself as no evidence of infiltrate or acute disease process. Radiology in agreement. EKG Initial EKG: Attestation: I personally reviewed and interpreted this EKG as follows: Comments: Sinus rhythm with a rate of 96 bpm with no acute ST segment changes Discharge Plan Triage Chief Complaint: Shortness of Breath ED Provider: Clarisa Medrano Dx/Rx/DC Orders Clinical Impression: Dyspnea, Chest pain of uncertain etiology Instructions: ED Chest Pain, Uncertain Cause, ED Dyspnea Prescriptions: No Action levothyroxine 137 mcg tablet 137 mcg PO DAILY solifenacin 10 mg tablet 10 mg PO DAILY biotin 1 mg capsule 1 mg PO DAILY magnesium 200 mg tablet 400 mg PO DAILY ascorbate calcium (vitamin C) 500 mg tablet 600 mg PO DAILY ferrous sulfate [FeroSul] 325 mg (65 mg iron) tablet 325 mg PO DAILY Patient Comments: TAKE 1 TABLET BY MOUTH TWICE DAILY Gemtesa 75 mg tablet 75 mg PO DAILY Patient Comments: TAKE 1 TABLET BY MOUTH ONCE DAILY furosemide 20 mg tablet 20 mg PO DAILY Patient Comments: TAKE 1 & 1/2 (ONE & ONE-HALF) TABLETS BY MOUTH ONCE DAILY Rx Instructions: TAKE 1 & 1/2 (ONE & ONE-HALF) TABLETS BY MOUTH ONCE DAILY B-complex with vitamin C Capsule 1 cap PO DAILY omeprazole 40 mg capsule,delayed release(DR/EC) 40 mg PO BID Patient Comments: TAKE 1 CAPSULE BY MOUTH ONCE DAILY colestipol 1 gram tablet 1 g PO DAILY Qty: 30 2RF Rx Instructions: avoid other medications 1 hour before and 4 hours after taking colestipol amlodipine 10 mg tablet 10 mg PO DAILY Patient Comments: TAKE 1 TABLET BY MOUTH ONCE DAILY gabapentin 300 mg capsule 600 mg PO TID Patient Comments: take two capsules in am, then take one capsule at lunch and two capsule before bedtime Rx Instructions: total of 5 caps daily metoprolol succinate 50 MG tablet 50 mg PO DAILY aspirin 81 MG tablet,chewable 81 mg PO DAILY@0800 buspirone 10 MG tablet 10 mg PO BID venlafaxine 150 mg tablet extended release 24hr 150 mg PO BID glucosamine sulfate [Glucosamine] 500 mg Tablet 500 mg PO DAILY Rx Instructions: administer with a meal [id number]-capryl 100 mg-150 mg- 50 mg-150 mg Capsule 1 cap PO DAILY rivaroxaban 10 mg tablet 10 mg PO DAILY Qty: 90 3RF Primary [facility] - [facility]-5 Days Disposition Disposition: Home, Self Care
[2023-04-13 17:26] VITALS: O2SAT 96; BMI 73.1
[2023-04-13 17:29] VITALS: BP 122/103; PULSE 98; RESP 16; O2SAT 99
[2023-04-13 17:46] LABS: Absolute Lymphocyte Count 2.64 X10^3/uL (0.83-4.51); Absolute Neutrophil Count 8.3 X10^3/uL (2.0-7.7); Basophil# 0.06 X10^3/uL; Basophil% 0.5 % (0-1); Eosinophil# 0.48 X10^3/uL; Eosinophils% 3.7 % (0-5); Hematocrit 43.3 % (37-47); Hemoglobin 13.7 g/dL (12.0-15.0); Lymphocyte # 2.64 X10^3/ul (0.83-4.51); Lymphocyte % 20.5 % (19-41); Mean Corp Hgb Conc 31.6 g/dL (32-36); Mean Corpuscular Hgb 30.9 pg (27.0-32.0); Mean Corpuscular Volume 97.5 fL (81-99); Mean Platelet Vol. 9.8 fl (6.2-12.0); Monocyte# 1.33 X10^3/uL; Monocyte% 10.3 % (0-10); NRBC Flagged by Analyzer 0 % (0-5); Neutrophil # 8.25 X10^3/uL (2.7-7.7); Neutrophil % 64.1 % (47-70); Platelet Count 335 K/mm3 (150-450); RBC Distribution Width CV 13.1 % (11.6-14.6); RBC Distribution Width SD 46.7 fl (35.1-43.9); Red Blood Count 4.44 M/mm3 (4.2-5.4); White Blood Count 12.9 K/mm3 (4.4-11.0)
[2023-04-13 18:08] LABS: Anion Gap 8 (5-15); BUN 17 mg/dL (7-18); BUN/Creat Ratio 14.7 RATIO (10-20); Calcium,Total 9.9 mg/dL (8.5-10.1); Chloride 102 mmol/L (98-107); Creatinine, Serum 1.16 mg/dL (0.55-1.02); EST Glomerular Filtration Rate 52 mL/min (>60); Est Glom Filt Rate - Afr Amer 63 mL/min (>60); Estimated Creatinine Clearance 53.91 ml/min; Glucose 112 mg/dL (74-106); Potassium 4.2 mmol/L (3.5-5.1); Sodium Level 138 mmol/L (136-145); Troponin-I HS 6 pg/mL (3.0-54.0)
--- NOTE | 2023-04-13 18:15 | ED.RN ---
Patient up to BSC unassisted. States SOB with any movement.
[2023-04-13 18:16] VITALS: BP 162/88; PULSE 98; RESP 16; O2SAT 99
[2023-04-13 18:16] LABS: Mucous, Urine 0 SEEN /hpf (<or=2+); Red Blood Cells-Urine 0 SEEN /hpf (0-5)
[2023-04-13 18:18] LABS: Color, Urine Yellow (Yellow); Glucose, Dipstick Normal (Normal); Ketone-Dipstick Negative (Negative); Leukocyte Esterase-Dipstick 25 /ul (Negative); Nitrite-Dipstick Negative (Negative); Occult Blood-Urine Negative /ul (Negative); Protein-Dipstick 15 mg/dl (Negative); Specific Gravity, Urine 1.015 (1.002-1.030); Urine Bilirubin Dipstick Negative (Negative); Urine Clarity Clear (Clear); Urine Urobilinogen Normal (Normal)
[2023-04-13 18:23] LABS: Squamous Epithelial Cells - UA 0-5 SEEN /hpf (5-10); White Blood Cells 0-5 SEEN /hpf (0-5)
[2023-04-13 18:24] LABS: Bacteria 1+ /hpf (None Seen)
[2023-04-13 18:59] VITALS: BP 139/85; PULSE 98; RESP 18; O2SAT 99
== END 2023-04-13 19:04 | disposition home or self-care (01) ==
PROVIDERS: Emergency Provider Emergency Medicine; Visit Provider Emergency Medicine
DX: R07.9 Chest pain, unspecified (principal); E66.01 Morbid (severe) obesity due to excess calories; I10 Essential (primary) hypertension; Z87.891 Personal history of nicotine dependence; R06.02 Shortness of breath; Z86.711 Personal history of pulmonary embolism; Z79.01 Long term (current) use of anticoagulants; R30.0 Dysuria; R35.0 Frequency of micturition
CPT/HCPCS: 71045; 80048; 81001; 84484; 85025; 87811; 93005; 94760; 99282; A4216

== ENCOUNTER 2023-05-21 14:34 | Emergency (ER) | payer BC, SELFPAY ==
[2023-05-21 14:35] VITALS: BP 158/88; PULSE 74; RESP 16; TEMP 36.7; O2SAT 98
--- NOTE | 2023-05-21 14:54 | EDS_ITS ---
HPI <LUCY Pruitt - Last Filed: 05/21/23 15:06> History of Present Illness Chief Complaint: Lower Extremity Injury Narrative Narrative: Patient presenting today with right leg pain that she has had since yesterday. She reports that she was taking a shower and was sitting in her shower chair and was trying to reach over the bathtub to grab her towel off the sink when she strained the muscles in her right leg. She reports that this morning her and her went through shopping and she was getting in and out of the van and in and out of her wheelchair when her right leg pain worsened. She reports that she is concerned for a blood clot. However, she does take Xarelto due to history of DVT and is compliant with this medication. She denies any direct trauma to her leg. COUNTS INCLUDE 234 BEDS AT THE [facility] <LUCY Pruitt - Last Filed: 05/21/23 15:06> COUNTS INCLUDE 234 BEDS AT THE [facility] Medical History DARLENE (acute kidney injury) Anemia Anxiety Anxiety and depression Arthritis BiPAP (biphasic positive airway pressure) dependence Cardiology follow-up encounter Chest pain Essential hypertension Former smoker Frequent headaches Gastric reflux Heartburn History of echocardiogram History of edema History of pain when walking History of pulmonary embolus (PE) History of stress test Homozygous MTHFR mutation [id number] Hypomagnesemia Hypothyroidism Incontinence Iron deficiency anemia Morbid obesity KINGSLEY (obstructive sleep apnea) Pulmonary embolism Pulmonary hypertension PVD (peripheral vascular disease) Restless legs Shortness of breath on exertion Sleep apnea Thyroid disease Wears glasses Home Medications aspirin 81 mg chewable tablet 81 mg PO DAILY@0800 HEART 07/21/18 [History Last Taken 08/29/22] buspirone 10 mg tablet 10 mg PO BID ANXIETY 07/21/18 [History Last Taken 09/01/22] metoprolol succinate 50 mg tablet,extended release 24 hr 50 mg PO DAILY blood pressure 07/21/18 [History Last Taken 09/01/22] levothyroxine 137 mcg tablet 137 mcg PO DAILY 11/12/19 [History Last Taken 09/01/22] venlafaxine 150 mg tablet,extended release 24 hr 150 mg PO BID DEPRESSION 11/12/19 [History Last Taken 09/01/22] ascorbate calcium (vitamin C) 500 mg tablet 600 mg PO DAILY 08/27/20 [History Last Taken 09/01/22] magnesium 200 mg tablet 400 mg PO DAILY 08/27/20 [History Last Taken 09/01/22] biotin 1 mg capsule 1 mg PO DAILY 02/05/21 [History Last Taken 09/01/22] solifenacin 10 mg tablet 10 mg PO DAILY 02/05/21 [History Last Taken 09/01/22] B-complex with vitamin C 1 cap PO DAILY 01/21/22 [History Last Taken 09/01/22] ferrous sulfate 325 mg (65 mg iron) tablet (FeroSul) 325 mg PO DAILY 01/21/22 [History Last Taken 08/29/22] furosemide 20 mg tablet 20 mg PO DAILY 01/21/22 [History Last Taken 09/01/22] vibegron 75 mg tablet (Gemtesa) 75 mg PO DAILY 01/21/22 [History Last Taken 09/01/22] glucosamine sulfate 500 mg tablet (Glucosamine) 500 mg PO DAILY 09/01/22 [History Last Taken 09/01/22] tumeric 100 mg-yehuda 150 mg-olive 50 mg-oreg 150 mg-caprylate capsule 1 cap PO DAILY 09/01/22 [History Last Taken 09/01/22] colestipol 1 gram tablet 1 g PO DAILY #30 tabs 09/15/22 [Rx Last Taken Unknown] amlodipine 10 mg tablet 10 mg PO DAILY 11/26/22 [History Last Taken Unknown] gabapentin 300 mg capsule 600 mg PO TID 11/26/22 [History Last Taken Unknown] omeprazole 40 mg capsule,delayed release 40 mg PO BID 11/26/22 [History Last Taken Unknown] rivaroxaban 10 mg tablet 10 mg PO DAILY #90 tabs 04/11/23 [Rx Last Taken Unknown] Allergy/AdvReac Type Severity Reaction Status Date / Time No Known Allergies Allergy Verified 04/13/23 16:20 Family History Mother Diabetes Hypertension Kidney disease Heart disease AVR Father Hypertension Myocardial infarction COPD (chronic obstructive pulmonary disease) Seizures Sleep apnea Sister , Age 56 Myocardial infarction Other History of pulmonary embolus (PE) Surgical History H/O: hysterectomy Hx of tubal ligation Social History Smoking Status: Former smoker alcohol intake: never substance use type: does not use caffeine: Yes Type: carbonated beverages, coffee and tea Number of servings: 3 ROS <LUCY Pruitt - Last Filed: 05/21/23 15:06> ROS ED Constitutional Constitutional ED: Denies chills or fever(s) Cardiovascular Cardiovascular: Denies chest pain Respiratory/Chest Respiratory/Chest: Denies cough or dyspnea Gastrointestinal Gastrointestinal: Denies abdominal pain, nausea or vomiting Musculoskeletal Musculoskeletal: Reports myalgias Integumentary Denies rash Neurologic Neurologic: Denies paresthesias or weakness EXAM <LUCY Pruitt - Last Filed: 05/21/23 15:06> Physical Exam Const Vital Signs: 05/21/23 14:35 Temperature 98.1 F Temperature Source Temporal Pulse Rate 74 Respiratory Rate 16 Blood Pressure 158/88 H Blood Pressure Mean 111 Pulse Ox 98 Oxygen Delivery Method Room Air Positive obese and no apparent distress Nutritional Appearance: obese HEENT Reports normocephalic and head/scalp atraumatic Mouth ED: Yes moist mucous membranes normal Eyes PERRL and EOMs intact bilaterally Neck full ROM and supple Chest Wall inspection of chest normal Resp normal respiratory effort and clear to auscultation bilaterally Cardio regular rate and regular rhythm GI soft to palpation, non-tender, non-distended and no masses Back/Spine normal ROM and normal to inspection Extremity normal to inspection and full ROM Extremity Narrative: No erythema or asymmetric swelling to the bilateral lower extremities, reproducible pain to the right leg along the lateral aspect, limited range of motion to the right leg due to pain. Right DP pulse 2+, good capillary refill, sensation intact. Neuro oriented x3, CN's II-XII intact bilaterally, moves all extremities, no focal motor deficits and no sensory deficits noted Sensorium / Orientation: awake and alert Psych mental status grossly normal and thought process normal Skin no rashes or lesions noted and no wounds <Dr. Emil Ness DO - Last Filed: 05/21/23 15:03> Physical Exam Const Vital Signs: 05/21/23 14:35 Temperature 98.1 F Temperature Source Temporal Pulse Rate 74 Respiratory Rate 16 Blood Pressure 158/88 H Blood Pressure Mean 111 Pulse Ox 98 Oxygen Delivery Method Room Air MDM <LUCY Pruitt - Last Filed: 05/21/23 15:06> [facility] Narrative Medical decision making narrative: Patient presenting with right leg pain she has had since yesterday. She reports that she strained her leg while she was in the shower trying to reach for a towel. She was then ambulating a lot today while at the thrift store getting in and out of her wheelchair and in and out of the car and thinks that she aggravated it. She was concerned for a DVT, however she is compliant with her Xarelto. I have low suspicion for DVT. Examination is consistent with muscle strain. She has been given RICE instructions. She will be discharged home in stable condition and is comfortable with plan. <Dr. Emil Ness, - Last Filed: 05/21/23 15:03> [facility] Treatment and Re-Evaluation Narrative: I have personally performed a face to face assessment of the patient and have reviewed the RUBEN Note. I performed a substantive portion of the visit including all aspects of the following. My little findings include: History: Patient presents with right thigh pain that began yesterday. Patient states she was in the shower and reached out to grab her Tylenol. Patient states she felt pain in the right thigh at that time. Patient states the pain radiated into her toes and into her hip. Patient denies any falls. Patient denies any paresthesias or weakness. Patient describes the pain as burning. Patient denies any chest pain or shortness of breath. Patient is on Xarelto for prior PE and DVT. Exam: Vital signs are stable. Patient is afebrile. Patient is in no acute distress. Musculoskeletal exam reveals tenderness over the lateral aspect of the right thigh. There is no bony crepitance or step-off noted. Range of motion was slightly limited in all motions of the right lower extremity secondary to pain. Pedal pulses are equal bilateral. Sensation was intact to light touch in all digits. Capillary refill was less than 2 seconds in all digits. Medical Decision Making: Patient was advised that this is most likely a muscular strain. Patient is on Xarelto. I do not feel venous duplex is necessary at this time since it would not change any treatment. Patient is agreeable with this. Patient was instructed to use ice to the area. Patient was instructed to take Tylenol or ibuprofen as needed for any pain. Patient was instructed to follow-up with her primary care physician in 5 to 7 days. Patient understood and was agreeable with the plan. All questions were answered. Discharge Plan Triage Chief Complaint: Lower Extremity Injury ED Midlevel Provider: Elsa Garces ED Provider: Emil Ness Dx/Rx/DC Orders Clinical Impression: Leg pain, right Instructions: ED Muscle Strain, Extremity Prescriptions: No Action levothyroxine 137 mcg tablet 137 mcg PO DAILY solifenacin 10 mg tablet 10 mg PO DAILY biotin 1 mg capsule 1 mg PO DAILY magnesium 200 mg tablet 400 mg PO DAILY ascorbate calcium (vitamin C) 500 mg tablet 600 mg PO DAILY ferrous sulfate [FeroSul] 325 mg (65 mg iron) tablet 325 mg PO DAILY Patient Comments: TAKE 1 TABLET BY MOUTH TWICE DAILY Gemtesa 75 mg tablet 75 mg PO DAILY Patient Comments: TAKE 1 TABLET BY MOUTH ONCE DAILY furosemide 20 mg tablet 20 mg PO DAILY Patient Comments: TAKE 1 & 1/2 (ONE & ONE-HALF) TABLETS BY MOUTH ONCE DAILY Rx Instructions: TAKE 1 & 1/2 (ONE & ONE-HALF) TABLETS BY MOUTH ONCE DAILY B-complex with vitamin C Capsule 1 cap PO DAILY omeprazole 40 mg capsule,delayed release(DR/EC) 40 mg PO BID Patient Comments: TAKE 1 CAPSULE BY MOUTH ONCE DAILY colestipol 1 gram tablet 1 g PO DAILY Qty: 30 2RF Rx Instructions: avoid other medications 1 hour before and 4 hours after taking colestipol amlodipine 10 mg tablet 10 mg PO DAILY Patient Comments: TAKE 1 TABLET BY MOUTH ONCE DAILY gabapentin 300 mg capsule 600 mg PO TID Patient Comments: take two capsules in am, then take one capsule at lunch and two capsule before bedtime Rx Instructions: total of 5 caps daily metoprolol succinate 50 MG tablet 50 mg PO DAILY aspirin 81 MG tablet,chewable 81 mg PO DAILY@0800 buspirone 10 MG tablet 10 mg PO BID venlafaxine 150 mg tablet extended release 24hr 150 mg PO BID glucosamine sulfate [Glucosamine] 500 mg Tablet 500 mg PO DAILY Rx Instructions: administer with a meal jaidnck-hysl-pksrt-oreg-capryl 100 mg-150 mg- 50 mg-150 mg Capsule 1 cap PO DAILY rivaroxaban 10 mg tablet 10 mg PO DAILY Qty: 90 3RF Primary Care Provider: [facility] Marie Jordan Referrals: [facility] [Primary Care Provider] - Activity Restrictions/Additional Instructions: You can take Tylenol for your pain as needed, ice your leg, follow-up with PCP. Return for any worsening of your symptoms. Disposition Disposition: Home, Self Care
[2023-05-21 15:08] VITALS: BMI 72.8
== END 2023-05-21 15:16 | disposition home or self-care (01) ==
PROVIDERS: Emergency Provider Emergency Medicine; Visit Provider Emergency Medicine
DX: M79.604 Pain in right leg (principal); E66.01 Morbid (severe) obesity due to excess calories; Z87.891 Personal history of nicotine dependence; I10 Essential (primary) hypertension; Z99.3 Dependence on wheelchair; Z79.01 Long term (current) use of anticoagulants; Z86.718 Personal history of other venous thrombosis and embolism
CPT/HCPCS: 99282

== ENCOUNTER → 2023-06-27 | Outpatient (CLI) | payer BC, SELFPAY ==
--- NOTE | 2023-06-27 12:05 | US_ITS ---
INDICATION: GOITER EXAMINATION: Ultrasound US Thyroid (eg thyroid, parathyroid, parotid) TECHNIQUE: Baker scale and color doppler imaging was performed of the thyroid gland. TIRADS criteria was utilized. COMPARISON: 10/03/2018 ultrasound. FINDINGS: RIGHT THYROID LOBE: 4.7 x 1.8 x 1.2 cm with a volume of 5.5 mL. Heterogeneous echotexture. Normal vascularity. 1.0 cm nodule in the lower pole which is mixed solid and cystic, mixed isoechoic and anechoic, wider than tall with smooth margins and no echogenic foci. LEFT THYROID LOBE: 1.4 x 4.7 x 1.0 cm with a volume of 3.5 mL. Heterogeneous echotexture. Normal vascularity. 4 mm mid left lobe nodule which is solid, hypoechoic, wider than tall with smooth margins and no echogenic foci. ISTHMUS: 4 mm in AP diameter. Homogeneous echotexture. Normal vascularity. No thyroid nodules. US/Thyroid IMPRESSION: 1. 1.0 cm right lobe TIRADS 3 nodule with no follow-up recommended. 2. 4 mm left lobe TIRADS 4 nodule with no follow-up recommended. Electronically Signed: Denton Hill DO at 3:30 EST ,
== END | disposition home or self-care (01) ==
PROVIDERS: Referring Provider Nurse Practitioner Family; Visit Provider Nurse Practitioner Family
DX: E03.9 Hypothyroidism, unspecified (principal); E04.9 Nontoxic goiter, unspecified
CPT/HCPCS: 76536

== ENCOUNTER 2023-08-26 11:30 | Outpatient (RCR) | payer BC, SELFPAY ==
[2023-08-18 09:33] VITALS: BP 128/90; PULSE 100; RESP 18; TEMP 36.6; BMI 71.2
--- NOTE | 2023-08-18 12:27 | PCM.WC.HP ---
History of Present Illness Date of Service: 08/18/23 Chief Complaint: Bilateral Lower Extremity Swelling History of Wound: Ms. Shahid is a 53 yo who was referred to the wound center due to bilateral lower extremity swelling. This has been present for over 5 years and is not necessarily worsening. Follows up at the [facility] and had been placed on Lasix but this was discontinued due to non benefit and increased urinary frequency. She states that her legs are quite heavy and has difficulty with walking/ambulating. Significant open wounds or drainage. History of diabetes mellitus type 2 which was recently diagnosed. She however states that she recently started making dietary and lifestyle changes and has lost 17 pounds since June. [facility] Medical History (Updated 08/18/23 @ 13:[address] 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 Hypomagnesemia Hypothyroidism Incontinence Iron deficiency anemia Lipedema of lower extremity Localized skin mass, lump, or swelling Morbid obesity KINGSLEY (obstructive sleep apnea) Pulmonary embolism Pulmonary hypertension PVD (peripheral vascular disease) Restless legs Shortness of breath on exertion Sleep apnea Super obesity Swelling of both lower extremities Thyroid disease Wears glasses Home Medications aspirin 81 mg chewable tablet 81 mg PO DAILY@0800 HEART 07/21/18 [History Last Taken 08/29/22] buspirone 10 mg tablet 10 mg PO TID ANXIETY 07/21/18 [History Last Taken 09/01/22] metoprolol succinate 50 mg tablet,extended release 24 hr 50 mg PO DAILY blood pressure 07/21/18 [History Last Taken 09/01/22] levothyroxine 137 mcg tablet 137 mcg PO DAILY 11/12/19 [History Last Taken 09/01/22] venlafaxine 150 mg tablet,extended release 24 hr 150 mg PO BID DEPRESSION 11/12/19 [History Last Taken 09/01/22] ascorbate calcium (vitamin C) 500 mg tablet 600 mg PO DAILY 08/27/20 [History Last Taken 09/01/22] magnesium 200 mg tablet 400 mg PO DAILY 08/27/20 [History Last Taken 09/01/22] B-complex with vitamin C 1 cap PO DAILY 01/21/22 [History Last Taken 09/01/22] ferrous sulfate 325 mg (65 mg iron) tablet (FeroSul) 325 mg PO DAILY 01/21/22 [History Last Taken 08/29/22] furosemide 20 mg tablet 20 mg PO DAILY 01/21/22 [History Last Taken 09/01/22] vibegron 75 mg tablet (Gemtesa) 75 mg PO DAILY 01/21/22 [History Last Taken 09/01/22] glucosamine sulfate 500 mg tablet (Glucosamine) 500 mg PO DAILY 09/01/22 [History Last Taken 09/01/22] amlodipine 10 mg tablet 10 mg PO DAILY 11/26/22 [History Last Taken Unknown] gabapentin 300 mg capsule 600 mg PO TID 11/26/22 [History Last Taken Unknown] omeprazole 40 mg capsule,delayed release 40 mg PO BID 11/26/22 [History Last Taken Unknown] Allergy/AdvReac Type Severity Reaction Status Date / Time No Known Allergies Allergy Verified 04/13/23 16:20 Family History Mother Diabetes Hypertension Kidney disease Heart disease AVR Father Hypertension Myocardial infarction COPD (chronic obstructive pulmonary disease) Seizures Sleep apnea Sister , Age 56 Myocardial infarction Other History of pulmonary embolus (PE) Surgical History H/O: hysterectomy Hx of tubal ligation Social History Smoking Status: Never smoker alcohol intake: never substance use type: does not use caffeine: Yes Type: carbonated beverages, coffee and tea Number of servings: 3 ROS Constitutional Constitutional: Denies excessive sweating, fatigue, frequent falls, headache(s), increased appetite or lethargy Eyes Eyes: Denies change in eye color, change in vision, decreased night vision, discharge from eye(s), discongugate gaze or double vision ENT HEENT: Denies bleeding gums, dysphagia, ear discharge, ear pain, epistaxis, foreign body in nose, halitosis or headache(s) Cardiovascular Cardiovascular: Reports easily tiring during activity; Denies cold extremities, cyanosis, diaphoresis, dyspnea at rest or erythema on extremities Respiratory/Chest Respiratory/Chest: Reports dyspnea on exertion; Denies chest tightness, excessive phlegm production, hemoptysis, hoarseness, inability to speak or nail bed cyanosis Gastrointestinal Gastrointestinal: Denies belching, chewing difficulty, coffee ground emesis, dry heaves, excessive flatus or fecal incontinence Genitourinary Genitourinary: Reports low back pain; Denies abdominal discomfort, flank pain or itching Musculoskeletal Musculoskeletal: Reports back pain, extremity pain and limited range of motion; Denies loss of height or muscle weakness Integumentary Integumentary: Denies bleeding lesions, changing lesions, hirsutism, jaundice or non-healing lesions Neurologic Neurologic: Denies abnormal speech, behavior changes, burning sensations, confusion, focal weakness, frequent falls, headache(s) or lack of coordination Psychiatric Psychiatric: Denies auditory hallucinations, behavioral changes, change in appetite, cognitive impairment, difficulty concentrating, hallucinations, hopelessness or irritability Endocrine Endocrinology: Denies change in body appearance, cold intolerance, deepening of the voice, excessive sweating, heat intolerance, increase in ring/shoe/hat size or palpitations Hematologic/Lymphatic Hematologic/Lymphatic: Denies anemia or lymphadenopathy Allergic/Immunologic Allergic/Immunologic: Denies itchy eyes, lip swelling, throat swelling, tongue swelling, eczemia, wheezing or asthma Vital Signs Vital Signs Vital Signs: 08/18/23 09:33 Temperature 97.8 F Temperature Source Temporal Pulse Rate 100 Respiratory Rate 18 Blood Pressure 128/90 H Blood Pressure Mean 102 Blood Pressure Source Monitor Blood Pressure Position Semi-Fowlers Blood Pressure Location Left Arm Weight Weight: 455 lb Body Mass Index (BMI) 71.2 Physical Exam Const alert, oriented x3 and no apparent distress General Appearance: cooperative, comfortable and well kempt HEENT normocephalic, head/scalp atraumatic and hearing grossly normal bilaterally Eyes PERRL and EOMs intact bilaterally General Eye: normal appearance of both eyes Neck full ROM, no lymphadenopathy and supple General: normal visual inspection Resp normal respiratory effort and normal air movement Effort and Inspection: able to speak in complete sentences Cardio regular rate, regular rhythm, S1 normal heart sound and S2 normal heart sound GI soft to palpation, non-tender and no masses Skin no rashes or lesions noted Neuro oriented x3, CN's II-XII intact bilaterally, moves all extremities and no focal motor deficits Psych mental status grossly normal, thought process normal, cooperative and affect normal Debridement Note Debridement Note Post-Debridement Measurements and Additional Note: Post-Debridement Measurements/Treatment - Nurse 1 - General Ulcer Assessment Start: 08/18/23 09:30 Freq: Status: Active Protocol: EVERETTE Activity Type Activity Date Activity User E-sign Co-sign Detail Recorded Client Recorded Date Recorded By Document 08/18/23 09:33 RB Desktop 08/18/23 09:40 RB 08/18/23 09:33 - Today's Visit Information Type of service Initial Visit Arrival Mode Wheelchair Transfer Assistance Manual Patient Identification Verified (Name & Yes ) Patient Requires Transmission-Based No Precautions Height and Weight Height 5 ft 7 in Weight 455 lb Weight in Pounds 455.0 lbs Body Mass Index (BMI) 71.2 BMI Classification Obese BSA - Bharat 2.87 Vital Signs Temperature (97.8 F-99.1 F) 97.8 F Temperature Source Temporal Pulse Rate (60-100) 100 Pulse Location Monitor Respiratory Rate (12-18) 18 Respiratory rate source Observation Blood Pressure (90/60-120/80) 128/90 H Blood Pressure Mean 102 Source Monitor Position Semi-Fowlers Blood Pressure Location Left Arm Pain Scale: 0-10 Numeric Is Patient Pain Free? Yes Lower Extremity Assessment/ Foot Assessment/ Toe Nail Assessment Right -Posterior Tibial Palpable Yes -Posterior Tibial Doppler Multiphasic -Dorsalis Pedis Palpable Yes -Dorsalis Pedis Doppler Multiphasic -Extremity Color Normal -Hair Growth on Legs Yes -Hair Growth on Toes Yes -Temperature of Extremity Warm -Capillary Refill Greater than 3 Seconds -Dependent Rubor No -Blanched when Elevated No -Lipodermatosclerosis No -Other Deformity No -Prior Foot Ulcer No -Charcot Joint No -Prior Amputation No -Thick No -Discolored No -Deformed No -Improper Length & Hygeine Yes Left -Posterior Tibial Palpable Yes -Posterior Tibial Doppler Multiphasic -Dorsalis Pedis Palpable Yes -Dorsalis Pedis Doppler Multiphasic -Extremity Color Normal -Hair Growth on Legs Yes -Hair Growth on Toes Yes -Temperature of Extremity Warm -Capillary Refill Greater than 3 Seconds -Dependent Rubor No -Blanched when Elevated No -Lipodermatosclerosis No -Other Deformity No -Prior Foot Ulcer No -Charcot Joint No -Prior Amputation No -Thick No -Discolored No -Deformed No -Improper Length & Hygeine Yes Neuropathy Assessment Feet - Top Side and Bottom <Entered> (a) Communication Assessment Preferred language Angolan 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 Required No Able to Read Yes Able to Write Yes Communication Tools None Caregiver Communication Skills No Impairment Impairment Right Hearing Abillity Normal Left Hearing Abillity Normal Visual Assistive Devices Glasses Teaching Assessment Preferences Verbal,Written, Demonstration Barriers to Learning None Readiness To Learn Good Willingness to Engage in Self Management Med Activies Readiness to Engage in Self Management Med Activities Anxiety Level Anxious Cooperation Cooperative Perception Coherent Interest in Health Problem Asks Questions Education Importance Acknowledges Need Does Patient Smoke tobacco or other No substances Smoking Status Never smoker Is Patient Diabetic Yes Functional Assessment Recent Decline in Ability to Perform Ambulation, Bathing Assistive Device With Patient No Culture/Sikhism/Frame [employer] Cultural/Sikhism Needs that may affect No Treatment Plan Would you allow our [facility] head of mobile to No meet you for the purpose of spiritual/ emotional support? Frame [employer] Trailers to contact place of buddhist No Teaching: Wound Center *Welcome to the Wound Center -Person Taught Patient,Family -Teaching Method Discussion, Demonstration -Response to teaching Verbalize understanding (a) 1 - + throughout - Nurse 1 - General Ulcer Measurement Start: 08/18/23 09:30 Freq: Status: Active Protocol: Activity Type Activity Date Activity User E-sign Co-sign Detail Recorded Client Recorded Date Recorded By Document 08/18/23 09:33 RB Desktop 08/18/23 09:40 RB 08/18/23 09:33 Wound Center Nurse 1 Lower Limb Edema Present Yes Right Calf (cm) 81.2 Right Ankle (cm) 36.5 Left Calf (cm) 82.5 Left Ankle (cm) 36 - Nurse 2 - General Ulcer CM Notes Start: 08/18/23 09:30 Freq: Status: Active Protocol: Activity Type Activity Date Activity User E-sign Co-sign Detail Recorded Client Recorded Date Recorded By Document 08/18/23 10:00 Desktop 08/18/23 10:08 08/18/23 10:00 Pain Scale: 0-10 Numeric Is Patient Pain Free? Yes Charges/Coding Visit Charges Office Visits / Consults: 39232 OV L3 New 30min Assessment/Plan Assessment/Plan (1) Swelling of both lower extremities: CODE(S): M79.89 - Other specified soft tissue disorders (2) Lipedema of lower extremity: CODE(S): R60.0 - Localized edema (3) Localized skin mass, lump, or swelling: CODE(S): R22.9 - Localized swelling, mass and lump, unspecified (4) Super obesity: CODE(S): E66.9 - Obesity, unspecified PLAN: Plan No debridement completed today. No open wound/ulcer. Distribution of swelling concerning for lipedema and and not significant lymphedema. As above, was tried on a diuretic with no significant benefit reported. Pain and difficulty with ambulating due to how heavy it feels. Both feet/ankle largely spared. Very lengthy discussion had with patient about etiology. Venous studies ordered. Compression discussed and she is not open to a 3M wrap. She states that she has some wraps at home and will do this daily. She states that she started eating better and exercising better as well and has lost about 17 pounds in 3 months. We discussed that surgical intervention may be necessary for lipedema management. Ultrasound ordered of localized soft tissue swelling, will review when available. Continue plan as discussed above. Follow-up to review results and progress in 3 weeks. She was advised to call sooner if she notes any concerns. She voiced understanding. This note was generated with [employer] dictation software. It may contain incorrect words, spelling, and punctuation that were not noted in checking the note before signing.
--- NOTE | 2023-08-26 08:35 | VDLE_ITS ---
Reason For Study: LLE Swelling RIGHT LEFT GSV is normal. GSV is normal. CFV is compressible, spontaneous, phasic, CFV is compressible, spontaneous, phasic, competent and demonstrates normal competent, and demonstrates normal augmentation. augmentation. FV is compressible, spontaneous, phasic, FV is compressible, spontaneous, phasic, competent and demonstrates normal competent and demonstrates normal augmentation. augmentation. POP V is compressible, spontaneous, phasic, POP V is compressible, spontaneous, phasic, competent and demonstrates normal competent and demonstrates normal augmentation. augmentation. T/P Trunk is compressible. T/P Trunk is compressible. PTV is compressible. PTV is compressible. Unable to visualize Distal FV and Migel V. Unable to visualize Migel V. Procedure This is a venous duplex using B-mode, color flow and spectral Doppler. Exam performed in department. The exam was of poor technical quality due to Body Habitus. Limited views were obtained. Patient was scanned in reverse Trendelenburg position during reflux assessment. VL/Venous Duplex US - Nicolas Extrem Interpretation Summary No evidence for acute deep venous thrombosis bilateral lower extremities with p atent and compressible bilateral great saphenous veins. Technically limited examination w ith inability to visualize the distal right femoral vein and popliteal vein and inability to vis ualize the left peroneal vein secondary to body habitus. Ordering Physician: Kevin Lee Referring Physician: Kevin Lee Performed By: Dale Ricketts RVT
--- NOTE | 2023-08-26 09:10 | US_ITS ---
STUDY: SUPERFICIAL ULTRASOUND - LEFT MEDIAL THIGH. REASON FOR EXAM: Female, 53 years old. L THIGH SWELLING TECHNIQUE: A superficial ultrasound was performed with real-time and static cai-scale imaging. COMPARISON: None. FINDINGS: Sonographic imaging was obtained along the left medial thigh. There is evidence of a edematous tissue in keeping with cellulitis. US/Ext Non Vasc Limited/Soft Tiss IMPRESSION: Edematous tissue suggestive of cellulitis. No focal abscess or mass lesion is seen. Electronically Signed: Parker Clark MD at 14:25 EDT ,
== END 2023-09-04 23:59 | disposition home or self-care (01) ==
LOC: WC 11:30
PROVIDERS: Referring Provider Internal Medicine; Visit Provider Internal Medicine
DX: M79.89 Other specified soft tissue disorders (principal); Z68.45 Body mass index [BMI] 70 or greater, adult; E66.01 Morbid (severe) obesity due to excess calories; E11.40 Type 2 diabetes mellitus with diabetic neuropathy, unspecified; Z79.82 Long term (current) use of aspirin; I10 Essential (primary) hypertension; R60.0 Localized edema; E03.9 Hypothyroidism, unspecified; R22.9 Localized swelling, mass and lump, unspecified; Z87.891 Personal history of nicotine dependence; Z79.899 Other long term (current) drug therapy; Z79.890 Hormone replacement therapy
CPT/HCPCS: 76882; 93970; 99203; 99213; G0463

== ENCOUNTER 2023-09-08 09:50 | Outpatient (RCR) | payer BC, SELFPAY ==
[2023-09-08 00:04] VITALS: BP 128/90; PULSE 100; RESP 18; TEMP 36.6; BMI 71.2
[2023-09-08 10:03] VITALS: BP 153/92; PULSE 98; RESP 20; TEMP 35.9; BMI 71.2
--- NOTE | 2023-09-08 11:03 | PN.PCM_ITS ---
History of Present Illness Date of Service: 09/08/23 Chief Complaint: Bilateral Lower Extremity Swelling History of Wound: Ms. Shahid is a 53 yo who was referred to the wound center due to bilateral lower extremity swelling. This has been present for over 5 years and is not necessarily worsening. Follows up at the [facility] and had been placed on Lasix but this was discontinued due to non benefit and increased urinary frequency. She states that her legs are quite heavy and has difficulty with walking/ambulating. Significant open wounds or drainage. History of diabetes mellitus type 2 which was recently diagnosed. She however states that she recently started making dietary and lifestyle changes and has lost 17 pounds since June. Progress of Wound: No new concerns at this time. Had venous studies done which did not show any concerns for lymphedema or obstruction. Has not tried compression gloves she states she was recently started on Mounjaro by her PCP. Objective Data Objective Data Vital Signs: Vital Signs Temp Pulse Resp BP O2 Del Method 96.6 F L 98 20 H 153/92 H Room Air 09/08/23 10:03 09/08/23 10:03 09/08/23 10:09/08/23 10:03 09/08/23 10:03 Oxygen Delivery Method Room Air Weight: 455 lb Body Mass Index (BMI) 71.2 Charges/Coding Visit Charges Office Visits / Consults: 99139 OV L3 Est 20min Physical Exam Const alert, oriented x3 and no apparent distress General Appearance: cooperative, comfortable and well kempt HEENT normocephalic, head/scalp atraumatic and hearing grossly normal bilaterally Eyes PERRL and EOMs intact bilaterally General Eye: normal appearance of both eyes Neck full ROM, no lymphadenopathy and supple General: normal visual inspection Resp normal respiratory effort Effort and Inspection: able to speak in complete sentences Neuro oriented x3, CN's II-XII intact bilaterally, moves all extremities and no focal motor deficits Psych mental status grossly normal, thought process normal, cooperative and affect normal Debridement Note Debridement Note Post-Debridement Measurements and Additional Note: Post-Debridement Measurements/Treatment GUICHO - Nurse 1 - General Ulcer Assessment Start: 09/08/23 10:03 Freq: Status: Active Protocol: GUICHO.LEV Activity Type Activity Date Activity User E-sign Co-sign Detail Recorded Client Recorded Date Recorded By Document 09/08/23 10:03 Desktop 09/08/23 10:07 09/08/23 10:03 - Today's Visit Information Type of service Follow-up Visit (Physician/UTILITY LINEMAN ) Arrival Mode Ambulatory, Wheelchair Transfer Assistance None Accompanied by Patient Identification Verified (Name & Yes ) Patient Requires Transmission-Based No Precautions Height and Weight Body Mass Index (BMI) 71.2 BMI Classification Obese Vital Signs Temperature (97.8 F-99.1 F) 96.6 F L Temperature Source Temporal Pulse Rate (60-100) 98 Pulse Location Monitor Respiratory Rate (12-18) 20 H Respiratory rate source Observation Oxygen Delivery Method Room Air Blood Pressure (90/60-120/80) 153/92 H Blood Pressure Mean (mm Hg) 112 Source Monitor Position Sitting Blood Pressure Location Right Forearm History Since Last Visit- (Skip if this is Patient's initial visit) Have you changed medications since your No last visit? Any new allergies or adverse reactions No Had a fall/change in ADL's that may No increase risk of falls Signs or symptoms of abuse and/or No neglect since last visit Have you been in the hospital since your No last visit? Has compression in place as prescribed N/A Has offloadiing in place as prescribed N/A Pain Scale: 0-10 Numeric Is Patient Pain Free? Yes - Nurse 1 - General Ulcer Measurement Start: 09/08/23 10:03 Freq: Status: Active Protocol: Activity Type Activity Date Activity User E-sign Co-sign Detail Recorded Client Recorded Date Recorded By Document 09/08/23 10:03 [email or web address] 09/08/23 10:07 09/08/23 10:03 Wound Center Nurse 1 Right Calf (cm) 84 Right Ankle (cm) 40 Left Calf (cm) 85 Left Ankle (cm) 38 - Nurse 2 - General Ulcer CM Notes Start: 09/08/23 10:03 Freq: Status: Active Protocol: Activity Type Activity Date Activity User E-sign Co-sign Detail Recorded Client Recorded Date Recorded By Document 09/08/23 10:37 [email or web address] 09/08/23 10:38 09/08/23 10:37 Pain Scale: 0-10 Numeric Is Patient Pain Free? Yes Assessment/Plan Assessment/Plan (1) Swelling of both lower extremities: CODE(S): M79.89 - Other specified soft tissue disorders (2) Lipedema of lower extremity: CODE(S): R60.0 - Localized edema (3) Localized skin mass, lump, or swelling: CODE(S): R22.9 - Localized swelling, mass and lump, unspecified (4) Super obesity: CODE(S): E66.9 - Obesity, unspecified PLAN: Plan No debridement completed today. No open wound/ulcer. She did have her venous studies done, no acute concerns noted. Ultrasound of localized area of swelling again with no acute concerns but suggestion for possible cellulitis. No tenderness or differential warmth. She states that her folds rub against each other causing some erythema in the area but otherwise no significant discomfort. We discussed surgical management of lipidemia. She is currently on Mounjaro which should help her with weight loss in addition to her other lifestyle and dietary modifications. No indication for further care at the wound center, she is not open to coming back for education on wraps, she states that she can figure it out at home. She was advised to call with any further questions or concerns, she voiced understanding. This note was generated with [employer] dictation software. It may contain incorrect words, spelling, and punctuation that were not noted in checking the note before signing.
== END 2023-10-04 23:59 | disposition home or self-care (01) ==
LOC: WC 09:50
PROVIDERS: Referring Provider Internal Medicine; Visit Provider Internal Medicine
DX: M79.89 Other specified soft tissue disorders (principal); R60.0 Localized edema; E66.9 Obesity, unspecified
CPT/HCPCS: 99213; G0463

== ENCOUNTER → 2023-11-24 | Outpatient (CLI) | payer BC, SELFPAY ==
[2023-11-24 12:40] LABS: Absolute Lymphocyte Count 2.25 X10^3/uL (0.83-4.51); Absolute Neutrophil Count 7.9 X10^3/uL (2.0-7.7); Basophil# 0.05 X10^3/uL; Basophil% 0.4 % (0-1); Eosinophil# 0.21 X10^3/uL; Eosinophils% 1.8 % (0-5); Hematocrit 41.1 % (37-47); Hemoglobin 13.2 g/dL (12.0-15.0); Lymphocyte # 2.25 X10^3/ul (0.83-4.51); Mean Corp Hgb Conc 32.1 g/dL (32-36); Mean Corpuscular Hgb 32.1 pg (27.0-32.0); Mean Platelet Vol. 10.2 fl (6.2-12.0); Monocyte# 1.37 X10^3/uL; Monocyte% 11.6 % (0-10); NRBC Flagged by Analyzer 0 % (0-5); Neutrophil # 7.87 X10^3/uL (2.7-7.7); Neutrophil % 66.6 % (47-70); Platelet Count 375 K/mm3 (150-450); RBC Distribution Width CV 13.6 % (11.6-14.6); RBC Distribution Width SD 50.1 fl (35.1-43.9); Red Blood Count 4.11 M/mm3 (4.2-5.4); White Blood Count 11.8 K/mm3 (4.4-11.0)
[2023-11-24 12:46] LABS: ALB/GLOB Ratio 0.7 RATIO (0.9-2.4); AST(SGOT) 25 U/L (15-37); Alanine Aminotransfer ALT/SGPT 32 U/L (13-56); Albumin, Serum 3.3 g/dL (3.2-5.0); Alkaline Phosphatase 87 U/L (45-117); Anion Gap 6 (5-15); BUN 18 mg/dL (7-18); BUN/Creat Ratio 15.3 RATIO (10-20); Chloride 102 mmol/L (98-107); Creatinine, Serum 1.18 mg/dL (0.55-1.02); EST Glomerular Filtration Rate 51 mL/min (>60); Est Glom Filt Rate - Afr Amer 61 mL/min (>60); Globulin 4.6 g/dL (2.2-4.2); Glucose 99 mg/dL (74-106); Potassium 4.5 mmol/L (3.5-5.1); Protein, Total 7.9 g/dL (6.4-8.2); Sodium Level 135 mmol/L (136-145); Thyroid Stim Hormone (TSH) 2.93 uIU/mL (0.358-3.74)
[2023-11-24 13:55] LABS: Microalbumin,Random Urine 16.7 mg/L (NO RANGE EST.)
== END | disposition home or self-care (01) ==
LOC: VSLAB 10:08
PROVIDERS: PCP Nurse Practitioner Family; Visit Provider Nurse Practitioner Family
DX: E11.65 Type 2 diabetes mellitus with hyperglycemia (principal); E03.9 Hypothyroidism, unspecified
CPT/HCPCS: 36415; 80053; 82043; 84439; 84443; 85025

== ENCOUNTER → 2024-03-12 | Outpatient (CLI) | payer BC, SELFPAY ==
--- NOTE | 2024-03-12 10:31 | BI_ITS ---
MAMMOGRAPHY - BILATERAL SCREENING REASON FOR EXAM: Female, 53 years old. Routine annual screening examination. PERTINENT HISTORY: Non-contributory. Occasional bilateral nipple tenderness. TECHNIQUE: Digital bilateral breast rere (3D mammographic acquisition) in the CC and MLO projections. 2-D mediolateral oblique (MLO) and craniocaudad (CC) views of both breasts were obtained. CAD: Full Field Digital Mammography with Computer Added Detection was performed. COMPARISON: Comparison is made with prior study dated September 27, 2022 and September 25, 2021. FINDINGS: Breast Composition: The breasts are heterogeneously dense, which may obscure small masses. There are no dominant masses or suspicious calcifications. Stable bilateral fat containing axillary lymph nodes. No other significant abnormalities are identified. There has been no significant change since the prior study. BI/SCRN MAMM (CAD)W/RERE BILAT IMPRESSION: Stable bilateral screening mammogram. Yearly follow-up mammogram recommended. (A) ASSESSMENT CATEGORY: BIRADS Category 2: Benign. A letter regarding these results will be sent to the patient by the facility within 30 days. Approximately 10% of breast cancers are not detected by mammography. A normal mammogram should not delay biopsy of a clinically suspicious abnormality. [id number] Electronically Signed: Parker Clark MD at 11:21 EDT ,
== END | disposition home or self-care (01) ==
LOC: OPBI 10:29
PROVIDERS: PCP Nurse Practitioner Family; Referring Provider Nurse Practitioner Family; Visit Provider Nurse Practitioner Family
DX: Z12.31 Encounter for screening mammogram for malignant neoplasm of breast (principal)
CPT/HCPCS: 77063; 77067

== ENCOUNTER → 2024-05-22 | Outpatient (CLI) | payer BC, SELFPAY ==
[2024-05-22 12:38] LABS: Absolute Lymphocyte Count 2.71 X10^3/uL (0.83-4.51); Absolute Neutrophil Count 6.8 X10^3/uL (2.0-7.7); Basophil# 0.05 X10^3/uL; Basophil% 0.4 % (0-1); Eosinophil# 0.28 X10^3/uL; Eosinophils% 2.5 % (0-5); Hematocrit 44.3 % (37-47); Hemoglobin 14.1 g/dL (12.0-15.0); Lymphocyte # 2.71 X10^3/ul (0.83-4.51); Lymphocyte % 24.2 % (19-41); Mean Corp Hgb Conc 31.8 g/dL (32-36); Mean Corpuscular Hgb 31.8 pg (27.0-32.0); Mean Corpuscular Volume 99.8 fL (81-99); Mean Platelet Vol. 9.9 fl (6.2-12.0); Monocyte# 1.36 X10^3/uL; Monocyte% 12.1 % (0-10); NRBC Flagged by Analyzer 0 % (0-5); Neutrophil # 6.79 X10^3/uL (2.7-7.7); Neutrophil % 60.5 % (47-70); Platelet Count 398 K/mm3 (150-450); RBC Distribution Width CV 13.3 % (11.6-14.6); RBC Distribution Width SD 48.8 fl (35.1-43.9); Red Blood Count 4.44 M/mm3 (4.2-5.4); White Blood Count 11.2 K/mm3 (4.4-11.0)
[2024-05-22 13:14] LABS: ALB/GLOB Ratio 0.7 RATIO (0.9-2.4); AST(SGOT) 27 U/L (15-37); Alanine Aminotransfer ALT/SGPT 42 U/L (13-56); Albumin, Serum 3.5 g/dL (3.2-5.0); Alkaline Phosphatase 82 U/L (45-117); Anion Gap 6 (5-15); BUN 20 mg/dL (7-18); Calcium,Total 10.7 mg/dL (8.5-10.1); Chloride 102 mmol/L (98-107); Cholesterol 213 mg/dL (200); Creatinine, Serum 1.25 mg/dL (0.55-1.02); EST Glomerular Filtration Rate 47 mL/min (>60); Est Glom Filt Rate - Afr Amer 57 mL/min (>60); Globulin 4.8 g/dL (2.2-4.2); Glucose 108 mg/dL (74-106); High Density Lipoprotein 50 mg/dL; Protein, Total 8.3 g/dL (6.4-8.2); Sodium Level 136 mmol/L (136-145); T4 Free Direct 1.43 ng/dL (0.76-1.46); Thyroid Stim Hormone (TSH) 0.133 uIU/mL (0.358-3.740); Triglycerides 133 mg/dL; Very Low Density Lipoprotein 27 mg/dL (5-40)
[2024-05-24 00:50] LABS: Vitamin D,25 Hydroxy 50.6 ng/mL
== END | disposition home or self-care (01) ==
LOC: VSLAB 08:51
PROVIDERS: PCP Nurse Practitioner Family; Visit Provider Nurse Practitioner Family
DX: E11.65 Type 2 diabetes mellitus with hyperglycemia (principal); E03.9 Hypothyroidism, unspecified; I10 Essential (primary) hypertension; E55.9 Vitamin D deficiency, unspecified
CPT/HCPCS: 36415; 80053; 80061; 82306; 84439; 84443; 85025

== ENCOUNTER 2024-06-29 11:03 | Emergency (ER) | payer BC, SELFPAY ==
[2024-06-29 11:04] VITALS: BP 116/79; PULSE 103; RESP 18; TEMP 36.6; O2SAT 94
--- NOTE | 2024-06-29 12:08 | RAD_ITS ---
STUDY: X-RAY - RIGHT HAND REASON FOR EXAM: Female, 54 years old. Wound right hand TECHNIQUE: 3 view(s) of the hand. COMPARISON: None. FINDINGS: Normal radiocarpal articulation. Normal distal radioulnar joint. Normal visualized carpal bones. Normal carpal articulations Normal carpometacarpal articulation of the thumb. Normal second through fifth carpometacarpal joints. Normal metacarpi. Normal metacarpophalangeal joint of the thumb. Normal interphalangeal joint of the thumb. Normal proximal and distal phalanges of the thumb. Normal metacarpophalangeal joints of the second through fifth fingers. Normal proximal and distal interphalangeal joints of the second through fifth fingers. Normal phalanges of the second through fifth fingers. Soft tissue swelling overlying the fifth metacarpal as well as the dorsal aspect of the hand. No radiopaque foreign body is seen. RAD/Hand Min 3 Views IMPRESSION: Soft tissue swelling overlying the fifth metacarpal and dorsal aspect of the hand. No radiopaque foreign body is seen. Electronically Signed: Parker Clark MD at 13:04 EST ,
[2024-06-29] MEDS: Diphth,Pertuss(Acell),Tet Vac 0.5 ML Vial IM (12:21)
[2024-06-29] MEDS: Amox/Clavulanate 875 MG Tablet PO (12:21)
--- NOTE | 2024-06-29 12:21 | EX.ED.UPPERE ---
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 Patient states she was attempting to take the dog bowl away from her 5-year-old dog and there are still some food left and the dog bit her hand. This occurred 2 days ago. Today she woke up and noticed that when she change the bandage there is redness around the bite and some odorous drainage. She came in for further evaluation. She denies any systemic symptoms such as fever, body aches, chills, nausea or vomiting. Notes that about a week ago she was on a course of Augmentin for leg issue. Notes that she is also having some bruising around the wounds and her hands is swollen. Is not sure last tetanus was. No other complaints or concerns at this time. Tetanus Immunization: Unknown [facility] Medical History Super obesity Localized skin mass, lump, or swelling Lipedema of lower extremity Swelling of both lower extremities Wears glasses Anxiety Thyroid disease Arthritis Incontinence Anemia Restless legs Heartburn Gastric reflux Former smoker BiPAP (biphasic positive airway pressure) dependence Sleep apnea Shortness of breath on exertion History of pain when walking History of edema History of echocardiogram History of stress test Cardiology follow-up encounter Frequent headaches PVD (peripheral vascular disease) Hypomagnesemia Chest pain Iron deficiency anemia Essential hypertension 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 History of pulmonary embolus (PE) Pulmonary hypertension KINGSLEY (obstructive sleep apnea) Morbid obesity Hypothyroidism DARLENE (acute kidney injury) Anxiety and depression Pulmonary embolism Home Medications ?Medication ?Instructions ?Recorded ?Last Taken ?Type aspirin 81 mg chewable tablet 81 mg PO DAILY@0800 HEART 07/21/18 08/29/22 History metoprolol succinate 50 mg 50 mg PO DAILY blood pressure 07/21/18 09/01/22 History tablet,extended release 24 hr levothyroxine 137 mcg tablet 200 mcg PO DAILY 11/12/19 09/01/22 History venlafaxine 150 mg tablet,extended 150 mg PO BID DEPRESSION 11/12/19 09/01/22 History release 24 hr ascorbate calcium (vitamin C) 500 600 mg PO DAILY 08/27/20 09/01/22 History mg tablet magnesium 200 mg tablet 400 mg PO DAILY 08/27/20 09/01/22 History B-complex with vitamin C 1 cap PO DAILY 01/21/22 09/01/22 History ferrous sulfate 325 mg (65 mg 325 mg PO DAILY 01/21/22 08/29/22 History iron) tablet (FeroSul) furosemide 20 mg tablet 20 mg PO DAILY 01/21/22 09/01/22 History vibegron 75 mg tablet (Gemtesa) 75 mg PO DAILY 01/21/22 09/01/22 History glucosamine sulfate 500 mg tablet 500 mg PO DAILY 09/01/22 09/01/22 History (Glucosamine) amlodipine 10 mg tablet 10 mg PO DAILY 11/26/22 Unknown History gabapentin 300 mg capsule 600 mg PO TID 11/26/22 Unknown History omeprazole 40 mg capsule,delayed 40 mg PO BID 11/26/22 Unknown History release tirzepatide 2.5 mg/0.5 mL 2.5 mg subcut QWEEK 09/08/23 Unknown History subcutaneous pen injector (Tashi) rivaroxaban 10 mg tablet 10 mg PO QDAY #90 tabs 02/22/24 Unknown Rx buspirone 15 mg tablet 15 mg PO TID PRN anxiety 03/05/24 Unknown History cholecalciferol (vitamin D3) 125 125 mcg PO QDAY #90 caps 03/05/24 Unknown Rx mcg (5,000 unit) capsule omeprazole 40 mg capsule,delayed 40 mg PO QDAY #90 caps 03/05/24 Unknown Rx release famotidine 20 mg tablet 20 mg PO BID PRN breakthrough 06/14/24 Unknown Rx heartburn #60 tabs amoxicillin 875 mg-potassium 1 tab PO Q12H #20 tabs 06/29/24 Unknown Rx clavulanate 125 mg tablet Allergy/AdvReac Type Severity Reaction Status Date / Time No Known Allergies Allergy Verified 06/29/24 11:10 Family History Mother Diabetes Hypertension Kidney disease Heart disease AVR Father Hypertension Myocardial infarction COPD (chronic obstructive pulmonary disease) Seizures Sleep apnea Sister , Age 56 Myocardial infarction Other History of pulmonary embolus (PE) Surgical History H/O: hysterectomy Hx of tubal ligation Social History Smoking Status: Never smoker alcohol intake: never substance use type: does not use caffeine: Yes Type: carbonated beverages, coffee and tea Number of servings: 3 ROS ROS ED Constitutional Constitutional ED: Denies chills or fever(s) Gastrointestinal Gastrointestinal: Denies nausea or vomiting Musculoskeletal Musculoskeletal: Reports other Details: Right hand pain and swelling Integumentary Reports other Details: Wound to the right hand with associated drainage and redness Neurologic Neurologic: Denies paresthesias or weakness Hematologic/Lymphatic Hematologic/Lymphatic: Reports easy bleeding, easy bruising and other Details: On Xarelto EXAM Physical Exam Const Vital Signs: 06/29/24 11:04 Temperature 97.9 F Temperature Source Oral Pulse Rate 103 H Respiratory Rate 18 Blood Pressure 116/79 Blood Pressure Mean 91 Pulse Ox 94 Oxygen Delivery Method Room Air Positive well nourished and well developed General Appearance ED: well developed and NAD Chest Wall inspection of chest normal Resp normal respiratory effort Cardio Cardio Narrative: 2+ radial pulses Extremity Extremity Narrative: No deformity of the extremities. No pinpoint bony tenderness of the dorsum of the right hand. Normal movement of the fingers. No [place] signs present. Neuro oriented x3, no focal motor deficits and no sensory deficits noted Sensorium / Orientation: alert Motor Exam: muscle tone normal throughout Skin Skin Narrative: 0.5 cm wound to the dorsal aspect of the right hand over the mid fourth metacarpal with some associated drainage. The drainage is initially serious well but then with expression there is some very slight purulence to it. There is surrounding area of erythema but no fluctuance. No associated lymphangitic streaking. Around the distal fingers and proximal wrist there is a slight amount of ecchymosis likely from the initial injury. MDM MDM MDM Narrative Medical decision making narrative: Patient valuated for increased redness and drainage from a dog bite to her right hand that occurred 2 days ago. She overall is well-appearing. She is not complain any systemic symptoms. I do not appreciate any fluctuance or abscess requiring opening/I&D. I do suspect a started to get infected however. X-rays obtained to rule out any associated foreign body or underlying fracture. X-ray viewed by myself of the right hand does not show any acute bony process, free air or foreign body. Patient is tetanus is updated. She is started on Augmentin given first dose in the emergency room. Counseled on warm soaks. Given return precautions. Patient and verbalized agreement understand this plan. Encouraged follow-up with primary care doctor for wound check on Tuesday. Discharged home in stable condition. Discharge Plan Triage Chief Complaint: Bite ED Provider: Dionne Boyd Dx/Rx/DC Orders Clinical Impression: Dog bite of right hand, Cellulitis of hand, right Instructions: ED Cellulitis, ED Dog Bite Prescriptions: New amoxicillin-pot clavulanate 875-125 mg tablet 1 tab PO Q12H Qty: 20 0RF No Action levothyroxine 137 mcg tablet 200 mcg PO DAILY Patient Comments: physician increased medicaion magnesium 200 mg tablet 400 mg PO DAILY ascorbate calcium (vitamin C) 500 mg tablet 600 mg PO DAILY ferrous sulfate [FeroSul] 325 mg (65 mg iron) tablet 325 mg PO DAILY Patient Comments: TAKE 1 TABLET BY MOUTH TWICE DAILY Gemtesa 75 mg tablet 75 mg PO DAILY Patient Comments: TAKE 1 TABLET BY MOUTH ONCE DAILY furosemide 20 mg tablet 20 mg PO DAILY Patient Comments: TAKE 1 & 1/2 (ONE & ONE-HALF) TABLETS BY MOUTH ONCE DAILY Rx Instructions: TAKE 1 & 1/2 (ONE & ONE-HALF) TABLETS BY MOUTH ONCE DAILY B-complex with vitamin C Capsule 1 cap PO DAILY omeprazole 40 mg capsule,delayed release(DR/EC) 40 mg PO BID Patient Comments: TAKE 1 CAPSULE BY MOUTH ONCE DAILY amlodipine 10 mg tablet 10 mg PO DAILY Patient Comments: TAKE 1 TABLET BY MOUTH ONCE DAILY gabapentin 300 mg capsule 600 mg PO TID Patient Comments: take two capsules in am, then take one capsule at lunch and two capsule before bedtime Rx Instructions: total of 5 caps daily buspirone 15 mg tablet 15 mg PO TID PRN (Reason: anxiety) omeprazole 40 mg capsule,delayed release(DR/EC) 40 mg PO QDAY Qty: 90 1RF cholecalciferol (vitamin D3) 125 mcg (5,000 unit) capsule 125 mcg PO QDAY Qty: 90 1RF metoprolol succinate 50 MG tablet 50 mg PO DAILY aspirin 81 MG tablet,chewable 81 mg PO DAILY@0800 venlafaxine 150 mg tablet extended release 24hr 150 mg PO BID glucosamine sulfate [Glucosamine] 500 mg Tablet 500 mg PO DAILY Rx Instructions: administer with a meal Mounjaro 2.5 mg/0.5 mL pen injector 2.5 mg subcut QWEEK rivaroxaban 10 mg tablet 10 mg PO QDAY Qty: 90 3RF famotidine 20 mg tablet 20 mg PO BID PRN (Reason: breakthrough heartburn) Qty: 60 2RF Primary Care Provider: Erica Jim Referrals: Erica Jim, MANAGER [facility] [Primary Care Provider] - Activity Restrictions/Additional Instructions: Keep the wound covered while it is draining. He may apply [id number] bacitracin ointment to it as well. Soak your hand 2-3 times a day in warm water with antibacterial soap. If the redness worsens, you develop pain or have a hard time moving her fingers please return to the emergency room. Otherwise please follow-up on Tuesday for wound check with your primary care doctor. Take the entire course of antibiotics as prescribed. Print Language: Amharic Disposition Disposition: Home, Self Care
== END 2024-06-29 13:00 | disposition home or self-care (01) ==
PROVIDERS: Emergency Provider Emergency Medicine; PCP Nurse Practitioner Family; Visit Provider Emergency Medicine
DX: S61.451A Open bite of right hand, initial encounter (principal); E11.9 Type 2 diabetes mellitus without complications; L03.113 Cellulitis of right upper limb; I10 Essential (primary) hypertension; Z79.01 Long term (current) use of anticoagulants; W54.0XXA Bitten by dog, initial encounter; Z23 Encounter for immunization
CPT/HCPCS: 73130; 87070; 87077; 87205; 90471; 90715; 99282

== ENCOUNTER 2024-10-13 13:56 | Emergency (ER) | payer BC, SELFPAY ==
[2024-10-13 13:57] VITALS: BP 111/84; PULSE 89; RESP 18; TEMP 36.4; O2SAT 100
[2024-10-13 13:58] VITALS: BMI 57.4
--- NOTE | 2024-10-13 14:09 | EX.ED.DYSGE1 ---
HPI <LUCY Blanco - Last Filed: 10/13/24 15:13> History of Present Illness Chief Complaint: Cellulitis Narrative Narrative: 54-year-old female with PMH of diabetes, morbid obesity presents with left leg redness. She states her Chihuahua scratched her left leg couple days ago. Last night she developed chills and redness of the lower metz and marked the area with pen. When she woke up this morning her leg was more swollen and the redness had spread up towards her knee prompting her visit. She has no fever or nausea or vomiting. She is on Mounjaro for diabetes. PFSH <LUCY Blanco - Last Filed: 10/13/24 15:13> [facility] Medical History Super obesity Localized skin mass, lump, or swelling Lipedema of lower extremity Swelling of both lower extremities Wears glasses Anxiety Thyroid disease Arthritis Incontinence Anemia Restless legs Heartburn Gastric reflux Former smoker BiPAP (biphasic positive airway pressure) dependence Sleep apnea Shortness of breath on exertion History of pain when walking History of edema History of echocardiogram History of stress test Cardiology follow-up encounter Frequent headaches PVD (peripheral vascular disease) Hypomagnesemia Chest pain Iron deficiency anemia Essential hypertension Homozygous MTHFR mutation [id number] History of pulmonary embolus (PE) Pulmonary hypertension KINGSLEY (obstructive sleep apnea) Morbid obesity Hypothyroidism DARLENE (acute kidney injury) Anxiety and depression Pulmonary embolism Home Medications ?Medication ?Instructions ?Recorded ?Last Taken ?Type aspirin 81 mg chewable tablet 81 mg PO DAILY@0800 HEART 07/21/18 08/29/22 History metoprolol succinate 50 mg 50 mg PO DAILY blood pressure 07/21/18 09/01/22 History tablet,extended release 24 hr venlafaxine 150 mg tablet,extended 150 mg PO BID DEPRESSION 11/12/19 09/01/22 History release 24 hr ascorbate calcium (vitamin C) 500 600 mg PO DAILY 08/27/20 09/01/22 History mg tablet magnesium 200 mg tablet 400 mg PO DAILY 08/27/20 09/01/22 History B-complex with vitamin C 1 cap PO DAILY 01/21/22 09/01/22 History ferrous sulfate 325 mg (65 mg 325 mg PO DAILY 01/21/22 08/29/22 History iron) tablet (FeroSul) furosemide 20 mg tablet 20 mg PO DAILY PRN edema 01/21/22 09/01/22 History Held on 08/18/23. Instructions: MD Ordered vibegron 75 mg tablet (Gemtesa) 75 mg PO DAILY 01/21/22 09/01/22 History amlodipine 10 mg tablet 10 mg PO DAILY 11/26/22 Unknown History omeprazole 40 mg capsule,delayed 40 mg PO BID 11/26/22 Unknown History release rivaroxaban 10 mg tablet 10 mg PO QDAY #90 tabs 02/22/24 Unknown Rx buspirone 10 mg tablet 10 mg PO TID PRN anxiety 07/23/24 Unknown History fesoterodine 8 mg tablet,extended 8 mg PO QDAY 07/23/24 Unknown History release 24 hr levothyroxine 175 mcg tablet 175 mcg PO QDAY 07/23/24 Unknown History gabapentin 300 mg capsule 600 mg PO TID 07/26/24 Unknown History tirzepatide 12.5 mg/0.5 mL 12.5 mg subcut QWEEK 08/23/24 08/05/24 History subcutaneous pen injector (Mounjaro) cholecalciferol (vitamin D3) 125 125 mcg PO QDAY #90 caps 08/30/24 Unknown Rx mcg (5,000 unit) capsule cephalexin 500 mg capsule 500 mg PO Q6 7 days #28 CAPSULES 10/13/24 Unknown Rx Allergy/AdvReac Type Severity Reaction Status Date / Time No Known Allergies Allergy Verified 10/13/24 13:56 Family History Mother Diabetes Hypertension Kidney disease Heart disease AVR Father Hypertension Myocardial infarction COPD (chronic obstructive pulmonary disease) Seizures Sleep apnea Sister , Age 56 Myocardial infarction Other History of pulmonary embolus (PE) Surgical History History of esophagogastroduodenoscopy (EGD) Hx of colonoscopy H/O: hysterectomy Hx of tubal ligation Social History Smoking Status: Never smoker alcohol intake: never substance use type: does not use caffeine: Yes Type: carbonated beverages, coffee and tea Number of servings: 3 ROS <LUCY Blanco - Last Filed: 10/13/24 15:13> ROS ED ROS Narrative Constitutional: Positive for chills. Negative for fever. GI: Negative for nausea, vomiting. Neuro: Negative for motor/sensory dysfunction. Musc: Negative for joint pain. EXAM <LUCY Blanco - Last Filed: 10/13/24 15:13> Physical Exam Narrative Exam Narrative: CONST: Patient sitting in no acute distress. EYES: Normal inspection. NECK: Normal inspection. RESP: No respiratory distress, CTAB. CVS: Regular rate and rhythm, no murmur, no gallop. SKIN: Color normal, no rash, warm, dry, intact. EXTREMITIES: Obese lower extremities. Left lower anterior tibia has a very superficial horizontal scratch from her dog. Around this is erythema and warmth which extends over the anterior metz and up the lateral calf to the level of the knee. There is no erythema of the thigh or foot. There is no induration, crepitus, or fluctuance. 2+ DP pulse. NEURO: Alert and answering questions appropriately. PSYCH: Normal affect. Const Vital Signs: 10/13/24 13:57 Temperature 97.6 F L Temperature Source Oral Pulse Rate 89 Respiratory Rate 18 Blood Pressure 111/84 H Blood Pressure Mean 93 Pulse Ox 100 Oxygen Delivery Method Room Air <Dr. Woody Panda MD - Last Filed: 10/13/24 14:30> Physical Exam Const Vital Signs: 10/13/24 13:57 Temperature 97.6 F L Temperature Source Oral Pulse Rate 89 Respiratory Rate 18 Blood Pressure 111/84 H Blood Pressure Mean 93 Pulse Ox 100 Oxygen Delivery Method Room Air MDM <LUCY Blanco - Last Filed: 10/13/24 15:13> [facility] Narrative Medical decision making narrative: 54-year-old female sustained a superficial scratch from her dog's nails on her left lower metz a few days ago and developed chills and erythema last night with progressive erythema noted this morning. She appears well and nontoxic. Vital signs stable. Clinically it is consistent with cellulitis. There are no signs of abscess or necrotizing fasciitis. Neurovascularly intact. She was given a dose of IV Unasyn and will be prescribed Keflex. I think since symptoms have just started and she has normal vital signs it is appropriate to trial outpatient antibiotics but I discussed strict return precautions. She was discharged in stable condition. <Dr. Woody Panda MD - Last Filed: 10/13/24 14:30> [facility] Treatment and Re-Evaluation Comments:: I have personally performed a face to face assessment of the patient and have reviewed the RUBEN Note. I performed a substantive portion of the visit including all aspects of the following. My little findings include: History is redness spreading up the leg from a scratch on her left lower leg caused by her dog 1-2 days ago. No bite from the dog. No fevers chills systemic symptoms from the patient. Exam is morbid obese legs. No induration, but there is warm tender erythema without subcutaneous emphysema emanating from the anterior distal lower leg scratch/abrasion up both sides of the lower leg toward the knee but not beyond. No lymphangitis. No abscess. No fluctuance. Medical Decison Making IV antibiotics given here along with prescription for outpatient care, she is comfortable with that. We discussed reasons to return. Other additions or changes: [None] Discharge Plan Triage Chief Complaint: Cellulitis ED Midlevel Provider: Helen [place] ED Provider: Woody Panda Dx/Rx/DC Orders Clinical Impression: Cellulitis of left leg, Dog scratch Instructions: Cellulitis Dc Prescriptions: New cephalexin 500 mg capsule 500 mg PO Q6 7 Days Qty: 28 0RF No Action magnesium 200 mg tablet 400 mg PO DAILY ascorbate calcium (vitamin C) 500 mg tablet 600 mg PO DAILY ferrous sulfate [FeroSul] 325 mg (65 mg iron) tablet 325 mg PO DAILY Gemtesa 75 mg tablet 75 mg PO DAILY Patient Comments: TAKE 1 TABLET BY MOUTH ONCE DAILY furosemide 20 mg tablet 20 mg PO DAILY PRN (Reason: edema) Patient Comments: TAKE 1 & 1/2 (ONE & ONE-HALF) TABLETS BY MOUTH ONCE DAILY Rx Instructions: TAKE 1 & 1/2 (ONE & ONE-HALF) TABLETS BY MOUTH ONCE DAILY B-complex with vitamin C Capsule 1 cap PO DAILY omeprazole 40 mg capsule,delayed release(DR/EC) 40 mg PO BID Patient Comments: TAKE 1 CAPSULE BY MOUTH ONCE DAILY amlodipine 10 mg tablet 10 mg PO DAILY Patient Comments: TAKE 1 TABLET BY MOUTH ONCE DAILY gabapentin 300 mg capsule 600 mg PO TID Patient Comments: take two capsules in am, then take one capsule at lunch and two capsule before bedtime Rx Instructions: total of 5 caps daily levothyroxine 175 mcg tablet 175 mcg PO QDAY buspirone 10 mg tablet 10 mg PO TID PRN (Reason: anxiety) fesoterodine 8 mg tablet extended release 24 hr 8 mg PO QDAY metoprolol succinate 50 MG tablet 50 mg PO DAILY aspirin 81 MG tablet,chewable 81 mg PO DAILY@0800 venlafaxine 150 mg tablet extended release 24hr 150 mg PO BID Mounjaro 12.5 mg/0.5 mL pen injector 12.5 mg subcut QWEEK rivaroxaban 10 mg tablet 10 mg PO QDAY Qty: 90 3RF cholecalciferol (vitamin D3) 125 mcg (5,000 unit) capsule 125 mcg PO QDAY Qty: 90 3RF Primary Care Provider: Erica Jim Referrals: Erica Jim, [employer]LYST-[facility] [Primary Care Provider] - Activity Restrictions/Additional Instructions: This is cellulitis or skin infection. Take all the antibiotics as prescribed. If you develop worsening redness that is spreading up your leg, increased pain, or fever please be seen again in the ER. Print Language: Belarusian Disposition Disposition: Home, Self Care
[2024-10-13] MEDS: Ampicillin/Sulbactam 3 GM in 0.9% Normal Saline (100mL MB+) 100 ML IV (14:29)
[2024-10-13 15:37] VITALS: BP 111/84; PULSE 89; RESP 18; TEMP 36.4; O2SAT 100
== END 2024-10-13 15:55 | disposition home or self-care (01) ==
LOC: ED 14:42
PROVIDERS: Emergency Provider Emergency Medicine; PCP Nurse Practitioner Family; Visit Provider Emergency Medicine
DX: L03.116 Cellulitis of left lower limb (principal); E66.01 Morbid (severe) obesity due to excess calories; E11.51 Type 2 diabetes mellitus with diabetic peripheral angiopathy without gangrene; Z79.85 Long-term (current) use of injectable non-insulin antidiabetic drugs; I10 Essential (primary) hypertension; S80.812A Abrasion, left lower leg, initial encounter; K21.9 Gastro-esophageal reflux disease without esophagitis; W26.8XXA Contact with other sharp object(s), not elsewhere classified, initial encounter
CPT/HCPCS: 99282; A4216; J0295

== ENCOUNTER → 2025-01-01 | Outpatient (CLI) | payer BC, SELFPAY ==
[2025-01-01 16:42] LABS: Hematocrit 38.5 % (37-47); Hemoglobin 12.6 g/dL (12.0-15.0); Immature Granulocytes Count 0.060 X10^3/uL (0.0-0.0); Mean Corp Hgb Conc 32.7 g/dL (32-36); Mean Corpuscular Volume 96.7 fL (81-99); Mean Platelet Vol. 9.8 fl (6.2-12.0); NRBC Flagged by Analyzer 0 % (0-5); Platelet Count 406 K/mm3 (150-450); RBC Distribution Width CV 13.6 % (11.6-14.6); RBC Distribution Width SD 48.8 fl (35.1-43.9); Red Blood Count 3.98 M/mm3 (4.2-5.4); White Blood Count 13.4 K/mm3 (4.4-11.0)
[2025-01-01 17:15] LABS: AST(SGOT) 17 U/L (<=31); Alanine Aminotransfer ALT/SGPT 17 U/L (<=34); Albumin, Serum 3.7 g/dL (3.5-5.0); Alkaline Phosphatase 100 U/L (35-104); Anion Gap 12 (5-15); BUN 18 mg/dL (4-19); BUN/Creat Ratio 15.7 RATIO (10-20); Calcium,Total 10.4 mg/dL (7.6-11.0); Carbon Dioxide 25.8 mmol/L (21.0-32.0); Chloride 100 mmol/L (98-108); Cholesterol 176 mg/dL (<=200); Globulin 3.9 g/dL (2.2-4.2); Glucose 95 mg/dL (70-99); Low Density Lipoprotein Calc. 112 mg/dL; Potassium 4.6 mmol/L (3.3-5.1); Triglycerides 109 mg/dL; Very Low Density Lipoprotein 22 mg/dL (5-40); cholesterol:hdl ratio screen 4.18
== END | disposition home or self-care (01) ==
LOC: VSLAB 11:42
PROVIDERS: PCP Nurse Practitioner Family; Visit Provider Nurse Practitioner Family
DX: I10 Essential (primary) hypertension (principal); E11.65 Type 2 diabetes mellitus with hyperglycemia; E03.9 Hypothyroidism, unspecified
CPT/HCPCS: 36415; 80053; 80061; 83036; 84439; 84443; 85025

== ENCOUNTER → 2025-02-27 | Outpatient (CLI) | payer BC, SELFPAY ==
[2025-02-27 15:20] LABS: Hematocrit 41.1 % (37-47); Hemoglobin 13.5 g/dL (12.0-15.0); Immature Granulocytes Count 0.100 X10^3/uL (0.0-0.0); Mean Corp Hgb Conc 32.8 g/dL (32-36); Mean Corpuscular Volume 97.6 fL (81-99); Mean Platelet Vol. 9.7 fl (6.2-12.0); NRBC Flagged by Analyzer 0 % (0-5); POSITIVE DIFFERENTIAL YES; Platelet Count 428 K/mm3 (150-450); RBC Distribution Width CV 12.8 % (11.6-14.6); RBC Distribution Width SD 45.8 fl (35.1-43.9); Red Blood Count 4.21 M/mm3 (4.2-5.4); White Blood Count 15.2 K/mm3 (4.4-11.0)
[2025-02-27 15:30] LABS: Differential Indicated SCAN CRITERIA MET
== END | disposition home or self-care (01) ==
LOC: VSLAB 13:35
PROVIDERS: PCP Nurse Practitioner Family; Referring Provider Nurse Practitioner Family; Visit Provider Nurse Practitioner Family
DX: D72.829 Elevated white blood cell count, unspecified (principal)
CPT/HCPCS: 36415; 85025

== ENCOUNTER → 2025-03-20 | Outpatient (CLI) | payer BC, SELFPAY ==
[2025-03-20 18:02] LABS: Hematocrit 38.5 % (37-47); Hemoglobin 12.5 g/dL (12.0-15.0); Immature Granulocytes Count 0.060 X10^3/uL (0.0-0.0); Mean Corp Hgb Conc 32.5 g/dL (32-36); Mean Corpuscular Volume 98.2 fL (81-99); Mean Platelet Vol. 10.1 fl (6.2-12.0); NRBC Flagged by Analyzer 0 % (0-5); Platelet Count 410 K/mm3 (150-450); RBC Distribution Width CV 12.8 % (11.6-14.6); RBC Distribution Width SD 45.4 fl (35.1-43.9); Red Blood Count 3.92 M/mm3 (4.2-5.4); White Blood Count 10.2 K/mm3 (4.4-11.0)
[2025-03-20 19:51] LABS: AST(SGOT) 22 U/L (<=31); Alanine Aminotransfer ALT/SGPT 21 U/L (<=34); Albumin, Serum 3.8 g/dL (3.5-5.0); Alkaline Phosphatase 102 U/L (35-104); Anion Gap 12 (5-15); BUN 18 mg/dL (4-19); BUN/Creat Ratio 16.5 RATIO (10-20); Calcium,Total 10.4 mg/dL (7.6-11.0); Carbon Dioxide 25.9 mmol/L (21.0-32.0); Chloride 100 mmol/L (98-108); Globulin 3.6 g/dL (2.2-4.2); Glucose 91 mg/dL (70-99); Potassium 4.5 mmol/L (3.3-5.1); Vitamin D,25 Hydroxy 67.2 ng/mL (30-100)
[2025-03-20 19:52] LABS: CRP 11.00 mg/L (0.0-3.0)
[2025-03-22 13:08] LABS: ANTINUCLEAR ANTIBODIES DIRECT Negative (Negative)
== END | disposition home or self-care (01) ==
PROVIDERS: PCP Nurse Practitioner Family; Visit Provider Nurse Practitioner Family
DX: M25.50 Pain in unspecified joint (principal); E11.65 Type 2 diabetes mellitus with hyperglycemia; E03.9 Hypothyroidism, unspecified; I10 Essential (primary) hypertension; D72.829 Elevated white blood cell count, unspecified; E55.9 Vitamin D deficiency, unspecified
CPT/HCPCS: 36415; 80053; 82306; 83036; 84439; 84443; 85025; 85652; 86038; 86140; 86431